=== PATIENT | female | born 1945 | race Caucasian/White ===

== ENCOUNTER 2016-08-21 11:21 | Inpatient (IN) | payer MEDICAID, OTHER ==
[~2016-08-21] VITALS: Ht 147.3 cm; Wt 49.8 kg
[~2016-08-21 11:21] MED LIST: ACET325T33 PO; ASPI325T4 PO; CLON-379 PO; ETOMIDATE 20 MG INJ ONE; METO-429 PO; ROCURONIUM 50 MG INJ ONE; SVL400T PO; TRAM-40 PO
[2016-08-21] MEDS ORDERED: CA GLUCONATE (GM) 10% 10ML INJ IV STA (11:24)
[2016-08-21] MEDS ORDERED: CEFEPIME 2GM/50 ML (PMX) 50 ML IVPB STA (11:24)
[2016-08-21] MEDS ORDERED: VANCOMYCIN 1 GM (PMX) 250 ML IVPB ONE (11:30)
[2016-08-21] MEDS ORDERED: NA BICARBONATE 8.4% 50 ML SYG IV ONE (11:30)
[2016-08-21] MEDS ORDERED: ETOMIDATE 20 MG INJ IV STA (11:41)
[2016-08-21] MEDS ORDERED: PROPOFOL 100 ML IV STA (11:41)
[2016-08-21] MEDS ORDERED: ROCURONIUM 50 MG INJ IV STA (11:41)
[2016-08-21 11:45] VITALS: RESP 12; RESP 16
[2016-08-21] MEDS ORDERED: HYDROmorphONE 1 MG/ML SYG IV ONE (12:00)
[2016-08-21 12:11] LABS: BASOPHILS % 0.7 % (0.0-2.0); EOSINOPHILS % 0.5 % (0.0-7.0); HEMATOCRIT 36.1 % (37.0-47.0); HEMOGLOBIN 12.3 g/dl (12.0-16.0); LYMPHOCYTES # 2.3 10^3/ul (0.8-2.9); LYMPHOCYTES % 39.6 % (15.0-51.0); MEAN CORPUSCULAR HEMOGLOBIN 30.7 pg (29.0-33.0); MEAN CORPUSCULAR HGB CONC 34.1 g/dl (32.0-37.0); MEAN PLATELET VOLUME 11.6 fl (7.4-10.4); MONOCYTE # 0.4 10^3/ul (0.3-0.9); MONOCYTES % 6.1 % (0.0-11.0); NEUTROPHILS % 52.9 % (39.0-77.0); PLATELET COUNT 222 10^3/UL (140-415); RED BLOOD COUNT 4.01 10^6/ul (4.20-5.40); RED CELL DISTRIBUTION WIDTH 14.4 % (11.5-14.5); WHITE BLOOD COUNT 5.7 10^3/ul (4.8-10.8)
[2016-08-21 12:17] LABS: ADD UMIC YES; URINE BILIRUBIN (Dip) NEGATIVE (NEGATIVE); URINE BLOOD (Dip) 3+ (NEGATIVE); URINE COLOR LT. YELLOW (YELLOW); URINE GLUCOSE (Dip) NEGATIVE (NEGATIVE); URINE KETONES (Dip) NEGATIVE (NEGATIVE); URINE LEUKOCYTE ESTERASE (Dip) 3+ (NEGATIVE); URINE NITRITE (Dip) NEGATIVE (NEGATIVE); URINE TOTAL PROTEIN (Dip) 2+ (NEGATIVE); URINE UROBILINOGEN (Dip) 0.2 E.U./dL (0.1-1.0)
[2016-08-21 12:17] LABS: ALBUMIN 2.7 g/dl (3.3-4.9)
[2016-08-21 12:20] LABS: ALBUMIN/GLOBULIN RATIO 0.84; BILIRUBIN,INDIRECT 0.2 mg/dl (0-1.1); BILIRUBIN,TOTAL 0.2 mg/dl (0.2-1.3); CREATININE 2.57 mg/dl (0.44-1.00); TOTAL PROTEIN 5.9 g/dl (6.1-8.1)
[2016-08-21 12:21] LABS: CALCIUM 9.7 mg/dl (8.4-10.2)
[2016-08-21 12:38] LABS: BACTERIA,URINE MANY; SQUAMOUS EPITHELIAL CELL,UR FEW
--- NOTE | 2016-08-21 12:47 | RADRPT ---
PROCEDURE: XR Chest. CLINICAL INDICATION: Post intubation TECHNIQUE: Chest AP portable COMPARISON: 05/20/2016 FINDINGS: Endotracheal tube with the tip at the orifice of the right mainstem bronchus (pulled back 3 cm). The mediastinal structures are unremarkable. There is calcification of the thoracic aorta (consiste nt with atherosclerosis). The heart is normal in size and configuration. The pulmonary vascularity is normal. The lung singletary are unremarkable. No consolidation is identified. The pleural spaces are unremarkable. There are senescent changes of the axial skeleton. IMPRESSION: Endotracheal tube with tip at the orifice of the right mainstem bronchus (pullback 3 cm) Calcification of the thoracic aorta (consistent with atherosclerosis). No evidence for active cardiopulmonary disease. Case was discussed with Johnny Gipson RPTAT: HGDB .Manuel Lorenz MD, Date Time Electronically viewed and signed by .Manuel Lorenz MD, on 08/21/2016 12:47 .B/
[2016-08-21] MEDS ORDERED: LABETALOL HCL 20MG INJ IV ONE (13:00)
[2016-08-21 13:02] LABS: INR 1.29; PROTIME 16.2 Sec (12.2-14.2); PT RATIO 1.3
[2016-08-21] MEDS ORDERED: LORA1TAB PO (13:03)
[2016-08-21] MEDS ORDERED: HAL1 PO (13:04)
[2016-08-21] MEDS ORDERED: SODIUM CHLORIDE 0.9% 1L BAG IV* STA (13:23)
[2016-08-21 13:34] LABS: Allen Test ACCEPTAB; Arterial Base Excess 9.8 mmol/L (-3.0-3); Arterial COHb 0.3 % (0.0-3.0); Arterial HCO3 30.7 mmol/L (22.0-26.0); Arterial MetHb 0.2 % (0.0-1.5); Arterial Total Hemglobin 13.5 g/dl (12.0-18.0); MODE VENT - AC
[2016-08-21 13:44] LABS: TROPONIN-I 0.051 ng/ml (0.00-0.12)
[2016-08-21] MEDS ORDERED: niCARdipine-D5W 0.1MG/ML DRIP 200 ML IV SCH (14:00)
--- NOTE | 2016-08-21 14:19 | RADRPT ---
PROCEDURE: CT Brain without contrast. CLINICAL INDICATION: Neurologic deficit TECHNIQUE: A CT of the brain was performed on multidetector high-resolution CT scanner utilizing a xial sections from the skull base through the vertex without contrast. One or more of the following dose reduction techniques were used: Automated exposure control, Adjustment of the mA and/or kV acc ording to patient size, and/or use of iterative reconstruction technique. DOSE: CTDI = 45 mGy and the DLP = 720 mGy-cm. COMPARISON: Head CT 11/16/2015 FINDINGS: No acute intracranial hemorrhage, significant mass effect or midline shift. Patchy hypoattenuation o f the cerebral white matter is most consistent with moderate-severe chronic microvascular ischemic c hanges.Atherosclerotic calcifications of the cavernous segments of the internal carotid arteries are seen. 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 The ventricles are stable size. Opacified nasal cavity. Partially imaged endotracheal tu be. IMPRESSION: No acute intracranial hemorrhage or significant mass effect. Moderate-severe chronic microvascular disease. 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 RPTAT: AA .Mehdi Dang MD, MD Date Time Electronically viewed and signed by .Mehdi Dang MD, MD on 08/21/2016 14:19 .T/
--- NOTE | 2016-08-21 14:58 | ERA ---
ER Documentation Chief Complaint Date/Time DATE: 08/21/16 TIME: 14:54 Chief Complaint ALOC PRIOR TO DIALYSIS HPI Patient is a 71-year-old female on dialysis who presents with altered mental status. The patient was brought in by ambulance. She went to dialysis and then was altered and therefore they did not perform dialysis. She was bradycardic and hypotensive per paramedics. I cannot obtain a history otherwise. ROS All systems reviewed and are negative except as per history of present illness. Medications Home Meds Active Scripts Metoprolol Tartrate* (Lopressor*) 50 Mg Tab, 50 MG PO BID for 30 Days, TAB Prov:CLAUDIARBERONICA 05/07/16 Sevelamer HCl (Renagel) 400 Mg Tab, 400 MG PO WITH MEALS for 30 Days, TAB Prov:REGAFUARBERONICA 05/07/16 Clonidine Hcl* (Clonidine Hcl*) 0.1 Mg Tab, 0.1 MG PO Q4H Y for SBP>160 for 30 Days, TAB Prov:HERBERT SHELL [employer] 04/22/16 Aspirin (Aspirin Lite-Coat) 325 Mg Tablet, 325 MG PO BID for 30 Days, TAB Last Dose 05/24/16 Prov:HERBERT SHELL [employer] 04/22/16 Acetaminophen* (Tylenol*) 325 Mg Tablet, 650 MG PO Q6H Y for PAIN LEVEL 1-3 OR FEVER for 30 Days, TAB Prov:HERBERT SHELL [employer] 04/22/16 Reported Medications Haloperidol* (Haldol*) 1 Mg Tab, 1 MG PO TID, TAB 08/21/16 Lorazepam* (Lorazepam*) 1 Mg Tablet, 1 MG PO DAILY Y for AGITATION/ANXIETY, #30 TAB 08/21/16 Tramadol Hcl* (Ultram*) 50 Mg Tablet, 50 MG PO Q8 Y for PAIN, TAB 11/15/15 Allergies Allergies: Coded Allergies: No Known Allergy (Unverified , 08/21/16) PMhx/Soc History of Surgery: Yes (HDL, ESRD W/ HD, RT ARM AV FISTULA, DEMENTIA, HTN, CAD.) Anesthesia Reaction: No Hx Neurological Disorder: Yes (DEMENTIA) Hx Respiratory Disorders: No Hx Cardiac Disorders: Yes (HTN,CAD,HYPERLIPIDEMIA;) Hx Psychiatric Problems: Yes (DEMENTIA;) Hx Miscellaneous Medical Probl: Yes (HDL, ESRD W/ HD, RT ARM AV FISTULA, DEMENTIA, HTN, CAD.) Hx Alcohol Use: No Hx Substance Use: No Hx Tobacco Use: No Smoking Status: Unknown if ever smoked FmHx Unable to obtain Physical Exam Vitals Vital Signs Date Time Temp Pulse Resp B/P Pulse Ox O2 Delivery O2 Flow Rate FiO2 08/21/16 14:07 59 206/107 08/21/16 13:15 75 16 100 100 08/21/16 13:01 97.9 66 227/94 08/21/16 12:00 60 16 100 100 08/21/16 11:23 61 16 130/80 99 Physical Exam Const: Altered and not responding to questions Head: Atraumatic Eyes: Normal Conjunctiva ENT: Normal External Ears, Nose and Mouth. Neck: Full range of motion..~ No meningismus. Resp: Clear to auscultation bilaterally Cardio: Regular rate and rhythm, no murmurs Abd: Soft, non tender, non distended. Normal bowel sounds Skin: Pale Back: No midline or flank tenderness Ext: No cyanosis, or edema Neur: The patient is nonresponsive and not responding to commands, the patient does withdrawal to pain in all 4 extremities Result Diagram: 08/21/16 1145 08/21/16 1145 Results 24 hrs Laboratory Tests Test 08/21/16 11:39 08/21/16 11:41 08/21/16 11:45 08/21/16 13:50 Urine Bacteria MANY Urine Bilirubin NEGATIVE Urine Clarity CLEAR Urine Color LT. YELLOW Urine Glucose NEGATIVE% Urine Hemoglobin 3+ Urine Ketones NEGATIVE Urine Leukocyte Esterase 3+ Urine Microscopic RBC 5-10/HPF Urine Microscopic WBC 25-50/HPF Urine Nitrite NEGATIVE Urine Specific [place] 1.010 Urine Squamous Epithelial Cells FEW Urine Total Protein 2+ Urine Urobilinogen 0.2 E.U./dL Urine Yeast FEW Urine pH 7.0 Arterial Blood HCO3 30.7mmol/L Arterial Blood Base Excess 9.8mmol/L Arterial Blood Oxygen Saturation 99.5mmHG Kristopher Test ACCEPTAB Arterial Blood Gas Puncture Site LB Arterial Blood Carboxyhemoglobin 0.3% Arterial Blood Date Drawn 08/21/2016 1:26:43 PM Arterial Blood Methemoglobin 0.2% Arterial Blood pCO2 (Temp correct) 29.9mmhg Arterial Blood pH (Temp corrected) 7.629 Arterial Blood pO2 (Temp corrected) 590.1mmHG Blood Gas A-a O2 Differential 93.0mmHg Blood Gas Actual Respiration Rate 16 Blood Gas Critical Value Read Back YENI Drummond Blood Gas Low PEEP Setting 5.0cmH2O Blood Gas Modality VENT - AC Blood Gas Notified Time 08/21/2016 1:33:53 PM Blood Gas Notified Whom MDA Blood Gas Respiration Rate 16.0 Blood Gas Specimen Source Blood arterial Blood Gas Temperature 37.0C Blood Gas Tidal Volume 450.0mL FiO2 100.0% Oxyhemoglobin Percent 99.0% Total Hemoglobin 13.5g/dl Activated Partial Thromboplast Time 156.0Sec Alanine Aminotransferase (ALT/SGPT) 23IU/L Albumin 2.7g/dl Albumin/Globulin Ratio 0.84 Alkaline Phosphatase 131IU/L Anion Gap 14 Aspartate Amino Transf (AST/SGOT) 25IU/L Basophils # 0.010^3/ul Basophils % 0.7% Blood Urea Nitrogen 25mg/dl Calcium Level 9.7mg/dl Carbon Dioxide Level 35mmol/L Chloride Level 96mmol/L Creatinine 2.57mg/dl Direct Bilirubin 0.00mg/dl Eosinophils # 0.010^3/ul Eosinophils % 0.5% Globulin 3.20g/dl Glucose Level 131mg/dl Hematocrit 36.1% Hemoglobin 12.3g/dl INR International Normalized Ratio 1.29 Indirect Bilirubin 0.2mg/dl Lactic Acid Level 1.4mmol/L 2.4mmol/L Lymphocytes # 2.310^3/ul Lymphocytes % 39.6% Mean Corpuscular Hemoglobin 30.7pg Mean Corpuscular Hemoglobin Concent 34.1g/dl Mean Corpuscular Volume 90.0fl Mean Platelet Volume 11.6fl Monocytes # 0.410^3/ul Monocytes % 6.1% Neutrophils # 3.010^3/ul Neutrophils % 52.9% Nucleated Red Blood Cells # 0.010^3/ul Nucleated Red Blood Cells % 0.0/100WBC Platelet Count 97363^3/UL Potassium Level 3.0mmol/L Prothrombin Time 16.2Sec Prothrombin Time Ratio 1.3 Red Blood Count 4.0110^6/ul Red Cell Distribution Width 14.4% Sodium Level 142mmol/L Total Bilirubin 0.2mg/dl Total Protein 5.9g/dl Troponin I 0.051ng/ml White Blood Count 5.710^3/ul Current Medications Medications (Trade) Dose Ordered Sig/Simone Route PRN Reason Start Time Stop Time Status Last Admin Dose Admin Cefepime HCl 50 ml @ 100 mls/hr ONCE STAT IVPB 08/21/16 11:24 08/21/16 11:53 DC 08/21/16 12:40 Vancomycin HCl (Vancocin) 250 ml @ 125 mls/hr ONCE ONCE IVPB 08/21/16 11:30 08/21/16 13:29 DC 08/21/16 14:26 Sodium Bicarbonate (Na Bicarb 8.4% Syg) 50 ml ONCE ONCE IV 08/21/16 11:30 08/21/16 11:31 DC 08/21/16 11:34 Calcium Gluconate (Ca Gluc) 1 gm ONCE STAT IV 08/21/16 11:24 08/21/16 11:26 DC 08/21/16 11:34 Rocuronium [place] (Zemuron) 70 mg ONCE STAT IV 08/21/16 11:41 08/21/16 11:43 DC Etomidate (Amidate) 20 mg ONCE STAT IV 08/21/16 11:41 08/21/16 11:43 DC Hydromorphone HCl 1 mg 1 mg ONCE ONCE IV 08/21/16 12:00 08/21/16 12:01 DC Propofol (Diprivan) 100 ml @ 0 mls/hr ONCE STAT IV 08/21/16 11:41 08/21/16 11:43 DC 08/21/16 12:17 Labetalol HCl (Labetalol) 20 mg ONCE ONCE IV 08/21/16 13:00 08/21/16 13:01 DC 08/21/16 13:08 Sodium Chloride 1830 ml 1,830 ml BOLUS OVER 2 HOURS STAT IV* 08/21/16 13:23 08/21/16 13:24 DC 08/21/16 14:24 Nicardipine HCl (Cardene Iv) 200 ml @ 50 mls/hr TITRATE IV 08/21/16 14:00 08/21/16 14:24 Procedures/MDM EKG read by me: Rate/Rhythm: Right bundle branch block a rate of 62 Intervals: Normal Impression: Right bundle branch block without evidence of ischemia PROCEDURE: CT Brain without contrast. CLINICAL INDICATION: Neurologic deficit TECHNIQUE: A CT of the brain was performed on multidetector high-resolution CT scanner utilizing axial sections from the skull base through the vertex without contrast. One or more of the following dose reduction techniques were used: Automated exposure control, Adjustment of the mA and/or kV according to patient size, and/or use of iterative reconstruction technique. DOSE: CTDI = 45 mGy and the DLP = 720 mGy-cm. COMPARISON: Head CT 11/16/2015 FINDINGS: No acute intracranial hemorrhage, significant mass effect or midline shift. Patchy hypoattenuation of the cerebral white matter is most consistent with moderate-severe chronic microvascular ischemic changes.Atherosclerotic calcifications of the cavernous segments of the internal carotid arteries are seen. 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 The ventricles are stable size. Opacified nasal cavity. Partially imaged endotracheal tube. IMPRESSION: No acute intracranial hemorrhage or significant mass effect. Moderate-severe chronic microvascular disease. 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 RPTAT: AA .Mehdi Dagn MD, MD Date Time Electronically viewed and signed by .Mehdi Dang MD, MD on 08/21/2016 14:19 Chest x-ray shows no pneumonia per radiology. Admit MDM: Patient's infectious symptoms have not stabilized and the patient is at risk of rapid decompensation. The patient will be admitted for careful hydration, antibiotic therapy, and infectious source control. Severe Sepsis criteria: Infectious source: Cystitis End organ damage indicated by: Respiratory failure Sepsis Management: Time of recognition of sepsis: 11:39 Within 3 hours of recognition: Blood cultures x 2 before broad-spectrum antibiotics: [Yes] 30 ml/kg NS bolus [Completed] Initial lactate 1.4 Repeat lactate 2.4 Time of recognition of septic shock: [No septic shock] Septic Shock Assessment: Any lactic acid > 4.0 [No] Persistent hypotension (SBP < 90 or 40 mmHg drop, MAP < 65) despite 30 mL/kg IV fluid bolus [No] Volume Re-assessment for Septic Shock (post 30 ml/kg bolus): No septic shock at this time Persistent Hypotension Treatment: Comfort care [No] Central line right femoral line Vasopressor started [Not required] I considered further perfusion assessment with CVP measurement, SCVO2, bedside ultrasound volume assessment, passive leg raise, trial of further fluid bolus. And proceeded with [30 ml/kg fluid bolus of NSS, broad spectrum antibiotics, and admission.] The patient required intubation for airway protection given a low GCS upon arrival. The patient also had a right femoral central line placed for IV access given difficult IV access. Accepting Care Team Current data and ongoing care discussed. Admitting Physician: Dr. Lu as the patient has [facility] Weight Shifter(s): [None] Outstanding Data: [Culture results] Critical Care: Critical care time [35] minutes excluding all billable procedures Emergent fluid management while maintaining close respiratory support. Provision of immediate and broad-spectrum antibiotic therapy. Simultaneous assessment for possible sources in order to direct targeted therapy. Consideration for invasive and chemical support to prevent cardiopulmonary collapse. Central Line Placement by me: Patient consented, sterilely draped, full prep, gown, glove, mask, time out performed. Anesthesia: 1% lidocaine locally Location: Right femoral Device: Multiple lumen Technique: Seldinger technique. Secured with suture. Results: Venous return from all ports with easy saline flush. No complications. Guide wire retrieved and disposed of. ED Ultrasound: Central line placed by me using concurrent ultrasound guidance. Real time image archived in the medical record confirms vascular anatomy. Endotracheal Intubation by me: Pre assessment performed. Pre-oxygenation performed with 100% oxygen RSI: Performed w/o complication or hypoxic events. Medications as ordered. Blade: MAC 4 Glidescope ET Tube: 7.5 cm Depth: 22 cm at the lip Intubation confirmed by colorimetric CO2, equal breath sounds, quiet over the stomach. Departure Diagnosis: Primary Impression: Respiratory failure Qualified Code: J96.00 - Acute respiratory failure, unspecified whether with hypoxia or hypercapnia Additional Impressions: Hypertensive urgency Altered level of consciousness Severe sepsis Condition: Critical ROBY JAIME MD Aug 21, 2016 14:58
[2016-08-21] MEDS ORDERED: ACETAMINOPHEN 650 MG SUPP PR PRN (15:00)
[2016-08-21] MEDS ORDERED: ACETAMINOPHEN 650MG/20.3ML CUP PO PRN (15:00)
[2016-08-21] MEDS ORDERED: ONDANSETRON 4 MG INJ IV PRN (15:00)
[2016-08-21] MEDS ORDERED: PROPOFOL 100 ML IV SCH (15:30)
--- NOTE | 2016-08-21 16:08 | CONS ---
DATE OF ADMISSION: 08/21/2016 DATE OF CONSULTATION: 08/21/2016 REASON FOR CONSULTATION: End-stage renal disease. PHYSICIAN REQUESTING CONSULT: Dr. Lu. HISTORY OF PRESENT ILLNESS: This is a 72-year-old female with a past medical history of end-stage r enal disease on dialysis Thursday, Thursday, Thursday; history of hypertension, dyslipidemia, coronary artery disease and dementia who presents to [facility] after being found altered f rom her dialysis center. The patient went to dialysis today; however, was not performed as patient was noted to be altered. She was bradycardic and hypotensive. The patient was brought to the [facility] Emergency Room. Upon arrival, she was noted to have a [place] Coma Scale of 3. The patient was bradycardic at 50. She was subsequently intubated. The patient was also noted to be hy pertensive with systolic pressures of 200. She was placed on nicardipine drip. The patient was als o started on empiric antibiotics for possibility of sepsis. A chest x-ray was obtained which showed no acute findings. CT scan of the brain showed no acute findings. Urinalysis did show evidence of possible pyuria and possible UTI. Since intubation, the patient has been critical but stable. The re have been no reports of hemoptysis, hematemesis or hematochezia. PAST MEDICAL HISTORY: History of end-stage renal disease, diabetes, hypertension, dementia. PAST SURGICAL HISTORY: Status post AV fistula.. ALLERGIES: NO KNOWN DRUG ALLERGIES. FAMILY HISTORY: No family history of cancers, heart disease. SOCIAL HISTORY: Does not drink, smoke or do drugs. MEDICATIONS: Patient medications have been reviewed. REVIEW OF SYSTEMS: Unable to do adequate review of systems as patient is obtunded. Pertinent posit david obtained by reviewing medical records, speaking to hospital staff as stated in HPI, otherwise n egative. PHYSICAL EXAMINATION: VITAL SIGNS: Blood pressure is 119/70, respirations 16, pulse 71, temperature 97.9. HEENT: Head is normocephalic. Pupils are reactive to light. NECK: Supple. HEART: Regular rate. LUNGS: Show diminished breath sounds at base. ABDOMEN: Soft, nontender to palpation. No rebound or guarding. EXTREMITIES: Negative for clubbing, cyanosis. No edema. DERMATOLOGIC: No rashes. MUSCULOSKELETAL: No joint effusions. NEUROLOGIC: No focal deficits, although exam is limited as patient is sedated and obtunded. LABORATORY DATA: Shows white count 5.7, hemoglobin 12.6, hematocrit 36.1, platelet count 222. [place] um 142, potassium 3.0, chloride 96, bicarbonate 35, BUN 25, creatinine 2.57. Lactic acid is 2.5. T he patient's ABG shows a pH 7.629 and pCO2 of 29. IMAGING STUDIES: As stated in HPI. ASSESSMENT AND PLAN: This is a 71-year-old female who presents with: 1. End-stage renal disease. The patient is on dialysis Thursday, Thursday, Thursday. Last hemodialys is was Thursday. Plan is for hemodialysis today. We will dialyze for 3 hours on 4K bath, calcium 2.5 . We will ultrafiltrate if the patient hemodynamically tolerate it. We will monitor closely. 2. Hypokalemia. Etiology is unclear, may be secondary to recent bicarbonate therapy. We will cont inue to monitor. Will dialyze on a 4 potassium bath. 3. History of anemia. The patient's hemoglobin levels currently within normal limits. Continue to monitor. 4. Mineral bone disorder. We will monitor calcium and phosphorus levels. Defer for phosphate bind ers. 5. Acute encephalopathy, underlying etiology is unclear, possibly infectious. She is currently on broad spectrum antibiotics. Follow up cultures to monitor. 6. Acute hypoxemic respiratory failure. The patient is status post intubation. ABG and vent setti ngs have been reviewed. Will continue to observe. Follow up with pulmonary. 7. Hypertensive urgency. Etiology is in part due to increased intravascular volume. Plan for dial ysis today with ultrafiltration. 8. History of coronary artery disease. Continue medical management. 9. Respiratory alkalosis, patient's pH 7.62, pCO2 of 29. The patient's vent settings have been rev iewed. We will repeat an ABG and monitor. Thank you Dr. Lu for this consult. It will be a pleasure to follow patient with you throughout [facility] hospital course. Dictated By: LAN MATIAS DO NR/NTS Conf#: [id number] DID#: [id number]
--- NOTE | 2016-08-21 16:52 | HP ---
DATE OF ADMISSION: 08/21/2016 PRIMARY CARE PHYSICIAN: Dr. Lu. CHIEF COMPLAINT ON ADMISSION: Altered level of consciousness. HISTORY OF PRESENT ILLNESS: This is a 71-year-old female with history of end-stage renal disease on hemodialysis, hypertension, hyperlipidemia, coronary artery disease and dementia who presented to [facility] emergency department. Brought in from dialysis with altered level of consciousness. By the time I saw the patient, she has been intubated. Therefore, I cannot get any information from her. I wa s able to gather old information from the ER physician, the ER nurse and the medical records from pr evious admission. Apparently, the patient today was at dialysis and upon arrival, she was noted to be hypotensive, severely encephalopathic. Therefore, she was sent directly to the emergency departm ent. In the emergency department, her GCS was down to 3. She was not protecting her airway; theref ore, she was intubated emergently. Apparently, she was hypotensive at the dialysis center, but afte r intubation here at [facility], the patient was found to be severely hypertensive with systolic blood pressure up to 200, requiring for her to start Cardene drip after her hypertens ion did not respond to labetalol IV. The CAT scan of the brain was done. There are no signs of ble eding. The patient is starting to regain some sort of consciousness. She was paralyzed for the int ubation, but on my exam, her pupils are reactive; however, she is not moving any other part of her b [place] yet. She is on propofol for sedation and on the mechanical ventilation. She also has Cardene d rip on the lowest rate possible with systolic blood pressure now in the 150s. Unfortunately, I did not have any information beside the events at the dialysis center in the emergency department. Rabia e is no family at the bedside. I have attempted to call the next of kin listed, but no answers. Darwin ortiz will be admitted to the intensive care unit for rule out acute CVA, rule out sepsis as she is found to have a positive urinalysis. She does have a history of coronary artery disease. Therefore , she also will be worked up for possible cardiac event. ALLERGIES: NO KNOWN ALLERGIES. PAST MEDICAL HISTORY: Based on records: 1. End-stage renal disease on hemodialysis. 2. Hypertension. 3. Dyslipidemia. 4. Anemia of chronic disease. 5. Coronary artery disease. 6. Dementia. PAST SURGICAL HISTORY: The patient had ORIF for left hip intertrochanteric fracture back in 2015. Status post right arm AV fistula placement remotely. SOCIAL HISTORY: Unable to obtain from patient but based on records, the patient lives at a [facility] and there is no recent history of tobacco, alcohol or illicit drug use. REVIEW OF SYSTEMS: Unable to obtain. OUTPATIENT MEDICATIONS: Unable verify but based on what is reported, the patient is on: 1. Clonidine 0.1 mg p.o. q.4h. p.r.n. systolic blood pressure above 160. 2. Metoprolol 50 mg p.o. b.i.d. 3. Tylenol 650 mg p.o. q.6h. p.r.n. pain. 4. Haloperidol 1 tab p.o. t.i.d. 5. Lorazepam 1 mg p.o. daily p.r.n. anxiety. 6. Tramadol 50 mg p.o. q.8h. p.r.n. pain. 7. Renagel 400 mg p.o. q.a.c. and at bedtime. 8. Also listed aspirin 325 p.o. b.i.d., which is unlikely at this time as the patient finished it i n May 2016. PHYSICAL EXAMINATION: VITAL SIGNS: Temperature 97.9. At the time of my exam, heart rate is 62, blood pressure 157/75, re spiratory rate of 13. Patient is satting 100%, FIO2 of 40%. She is on the vent AC, PEEP of 5, tida l volume of 450, respiratory rate 16, FIO2 of 40%. GENERAL: She is intubated on propofol for sedation, but seems to open her eyes to loud voices. She also had to be paralyzed for the intubation. HEENT: Pupils are equally round and reactive to light. Extraocular muscles are very limited exam c urrently. No thyromegaly noted. NECK: No JVD. Mucous membrane moist. ET tube in place. HEART: Regular rate and rhythm. LUNGS: Clear to auscultation bilaterally. ABDOMEN: Soft, nontender, nondistended. Bowel sounds are present. EXTREMITIES: No edema, clubbing or cyanosis. NEUROLOGIC: Again, the patient may still be under the effect of the paralytics at the time of intub ation, but she is opening her eyes to loud voices. Barone catheter is in place with minimal amount o f urine. The patient is on dialysis. LABORATORY DATA: White blood cell count is 5.7, hemoglobin 12.3, hematocrit 36.1, platelet count of 222. Chemistry with a sodium of 142, potassium 3.0, chloride 96, bicarbonate 35, BUN 25, creatinin e 2.57, glucose of 131. Lactic acid first one was at 1.4, second one 2.4. LFTs unremarkable except for alkaline phosphatase of 131 and albumin of 2.7. Urinalysis with 3+ leukocyte esterase, many ba cteria. EKG showed a right bundle branch block and patient in sinus rhythm with heart rate in the 6 0s. RADIOLOGICAL DATA: 1. Chest x-ray post-intubation shows no evidence of active cardiopulmonary disease. ET tube in the right main stem bronchus needs to be pulled out 3 cm. 2. 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 3. MRI of the brain is pending. ASSESSMENT AND PLAN: This is a 71-year-old female with: 1. Acute and severe encephalopathy with [place] Coma Score of 3. Required intubation for airway pr otection. My concern is the patient had a neurological event, possibly an ischemic cerebrovascular accident . CAT scan is negative for acute hemorrhagic CVA. She is currently under sedation and on the vent. MRI is pending. There is a question of sepsis as the patient was at first hypotensive on dialysis at the time of loss of consciousness. Her urinalysis is positive; however, the rest of he r labs are fairly stable. She has been given a dose of vancomycin and cefepime. We will continue t he cefepime for now based on the urinalysis. Monitor further. 2. Severe hypertension on admission. Now, she seems to be trending back to normotensive. She may have labile blood pressure. She is currently on Cardene drip, but that may need to be discontinued later on. She needs to monitor vital signs and follow up on MRI of the brain. 3. End-stage renal disease. The patient missed dialysis today. I have contacted Dr. Saldana to re sume her scheduled dialysis as tolerated. 4. Hypokalemia. The patient did receive bicarbonate upon arrival and we will recheck her basic met abolic panel this afternoon and correct her potassium as needed. 5. Anemia of chronic disease, stable hemoglobin on admission. 6. Urinary tract infection with positive urinalysis and possibly sepsis. Continue to trend lactic acid levels. Continue cefepime. Monitor hemodynamically. The patient is already on the vent for a cute respiratory failure related to severe encephalopathy. 7. Prophylaxis: Sequential compression devices to lower extremity for DVT prophylaxis. Of note, t he patient is noted to have elevated PTT for unclear reasons and Pepcid for GI prophylaxis. DISPOSITION: Patient will be admitted to intensive care unit, pulmonary consult with Dr. Montelongo. Nephrology consult with Dr. Saldana and MRI pending. Dictated By: JACQUES PEREZ/SANRDA Conf#: [id number] DID#: [id number]
--- NOTE | 2016-08-21 17:05 | CONS ---
Date/Time of Note Date/Time of Note DATE: 08/21/16 TIME: 16:58 Assessment/Plan Assessment/Plan Additional Assessment/Plan Assessment and recommendations; next 1. Patient admitted with hypertensive encephalopathy then developed respiratory failure, intubated for airway protection. 2. Current blood pressure readings are much better. Patient was started on nicardipine drip however the patient became hypotensive and drip was then discontinued. 3. Currently no evidence of any infective process. 4. End-stage renal disease on hemodialysis. 5. Vision is getting mildly alkalotic. Next Current treatment for now, ventilator settings have been adjusted; tidal volume is to be decreased to 450 mL. Continue current antibiotics for now. Give patient a sedation vacation in about 14 hours. Weaning from mechanical ventilation will depend upon adequate recovery of mental status. We will follow the patient in ICU. Consultation Date/Type/Reason Admit Date/Time Date of Consultation: Aug 21, 2016 Type of Consultation: Pulmonary/critical care Reason for Consultation 31-year-old female admitted to ER presented with altered level of consciousness sent over from dialysis center then developed respiratory failure intubated by ER physician for airway protection. History presenting illness; Ms. Madrid is a 71-year-old [place] lady who was about to undergo hemodialysis today however the patient was extremely hypertensive and then developed altered level of consciousness, because of instability patient was sent over to [facility] ER where she was intubated by the ER physician for airway protect. Next Medical history 1. End-stage renal disease on hemodialysis. 2. Hypertension. 3. Dementia . 4. History of AV fistula. 5. History of ORIF involving the left hip. 6. History of coronary artery disease. Medications; were reviewed. Allergies; R none Social history; no show any smoking, alcohol or drug abuse. Family history; currently not available. Occupational history; currently not available. Review of systems; not able to be obtained. General examination; elderly lady, orally intubated, currently sedated with propofol drip. Social History Smoking Status: Unknown if ever smoked Exam/Review of Systems Vital Signs Vitals Vital Signs Date Time Temp Pulse Resp B/P Pulse Ox O2 Delivery O2 Flow Rate FiO2 08/21/16 16:00 54 139/68 08/21/16 13:15 16 100 100 08/21/16 13:01 97.9 Exam HEENT examination; supple neck, bilateral cataracts are present, pupils are small bilaterally. Orally intubated. Supple neck. No lymphadenopathy. No JVD. No thyromegaly. Next Chest examination; clear to auscultation bilaterally. S1-S2 audible, regular rhythm. No murmurs. Abdomen examination; soft, no scars are present. Umbilicus is inverted. No organomegaly. Bowel sounds audible. Extremity examination; no peripheral edema. Pulses 1+ bilaterally. CENTRAL PROCESSING TECHNICIAN examination; patient is currently sedated. Chest x-ray and CT scan of head were reviewed. Chest x-ray is totally clear, however endotracheal tube is just at the level of altagracia and has since been pulled out. CT of the head is negative. Results Result Diagram: 08/21/16 1145 08/21/16 1145 Results 24 hrs Laboratory Tests Test 08/21/16 11:39 08/21/16 11:41 08/21/16 11:45 08/21/16 13:50 Urine Bacteria MANY Urine Bilirubin NEGATIVE Urine Clarity CLEAR Urine Color LT. YELLOW Urine Glucose NEGATIVE Urine Hemoglobin 3+ H Urine Ketones NEGATIVE Urine Leukocyte Esterase 3+ H Urine Microscopic RBC 5-10 Urine Microscopic WBC 25-50 Urine Nitrite NEGATIVE Urine Specific [place] 1.010 Urine Squamous Epithelial Cells FEW Urine Total Protein 2+ H Urine Urobilinogen 0.2 E.U./dL Urine Yeast FEW Urine pH 7.0 Arterial Blood HCO3 30.7 H Arterial Blood Base Excess 9.8 H Arterial Blood Oxygen Saturation 99.5 Kristopher Test ACCEPTAB Arterial Blood Gas Puncture Site LB Arterial Blood Carboxyhemoglobin 0.3 Arterial Blood Date Drawn 08/21/2016 1:26:43 PM Arterial Blood Methemoglobin 0.2 Arterial Blood pCO2 (Temp correct) 29.9 L Arterial Blood pH (Temp corrected) 7.629 *H Arterial Blood pO2 (Temp corrected) 590.1 H Blood Gas A-a O2 Differential 93.0 H Blood Gas Actual Respiration Rate 16 Blood Gas Critical Value Read Back YENI Drummond Blood Gas Low PEEP Setting 5.0 Blood Gas Modality VENT - AC Blood Gas Notified Time 08/21/2016 1:33:53 PM Blood Gas Notified Whom MDA Blood Gas Respiration Rate 16.0 Blood Gas Specimen Source Blood arterial Blood Gas Temperature 37.0 Blood Gas Tidal Volume 450.0 FiO2 100.0 Oxyhemoglobin Percent 99.0 Total Hemoglobin 13.5 Activated Partial Thromboplast Time 156.0 *H Alanine Aminotransferase (ALT/SGPT) 23 Albumin 2.7 L Albumin/Globulin Ratio 0.84 Alkaline Phosphatase 131 H Anion Gap 14 Aspartate Amino Transf (AST/SGOT) 25 Basophils # 0.0 Basophils % 0.7 Blood Urea Nitrogen 25 H Calcium Level 9.7 Carbon Dioxide Level 35 H Chloride Level 96 L Creatinine 2.57 H Direct Bilirubin 0.00 Eosinophils # 0.0 Eosinophils % 0.5 Globulin 3.20 Glucose Level 131 Hematocrit 36.1 L Hemoglobin 12.3 INR International Normalized Ratio 1.29 Indirect Bilirubin 0.2 Lactic Acid Level 1.4 2.4 H Lymphocytes # 2.3 Lymphocytes % 39.6 Mean Corpuscular Hemoglobin 30.7 Mean Corpuscular Hemoglobin Concent 34.1 Mean Corpuscular Volume 90.0 Mean Platelet Volume 11.6 #H Monocytes # 0.4 Monocytes % 6.1 Neutrophils # 3.0 Neutrophils % 52.9 Nucleated Red Blood Cells # 0.0 Nucleated Red Blood Cells % 0.0 Platelet Count 222 Potassium Level 3.0 L Prothrombin Time 16.2 H Prothrombin Time Ratio 1.3 Red Blood Count 4.01 L Red Cell Distribution Width 14.4 Sodium Level 142 Total Bilirubin 0.2 Total Protein 5.9 L Troponin I 0.051 White Blood Count 5.7 Test 08/21/16 15:30 Lactic Acid Level 2.5 H Medications Medications Current Medications Nicardipine HCl (Cardene Iv) 200 ml @ 50 mls/hr TITRATE IV Last administered on 08/21/16t 14:24; Admin Dose 50 MLS/HR; Start 08/21/16 at 14:00 Ondansetron HCl (Zofran Inj) 4 mg Q6H PRN IV NAUSEA AND/OR VOMITING; Start 08/21 at 15:00 Acetaminophen (Tylenol Liquid) 650 mg Q6H PRN PO PAIN LEVEL 1-3 OR FEVER; Start 08/21/16 at 15:00 Acetaminophen (Tylenol Supp) 650 mg Q4H PRN [place] PAIN LEVEL 1-3 OR FEVER; Start 08/21/16 at 15:00 Famotidine (Pepcid Iv) 20 mg Q12 IV ; Start 08/21/16 at 21:00 Metoprolol Tartrate 50 mg 50 mg BID PO ; Start 08/21/16 at 21:00 Cefepime HCl (Maxipime 1gm/50 ml (Pmx)) 50 ml @ 100 mls/hr Q24H IVPB ; Start at 11:00 GIOVANNI JOHNS Aug 21, 2016 17:04
[2016-08-21 17:17] LABS: CREATININE 2.54 mg/dl (0.44-1.00)
[2016-08-21 17:18] LABS: CALCIUM 7.5 mg/dl (8.4-10.2)
[2016-08-21 17:32] LABS: POTASSIUM 2.8 mmol/L (3.5-5.1)
[2016-08-21 17:44] VITALS: TEMP 96.9
[2016-08-21] MEDS: SEVELAMER 400 MG TAB PO SCH (18:00)
[2016-08-21 20:16] LABS: CK-MB 6.57 ng/ml (0.0-2.4)
[2016-08-21 20:20] LABS: TROPONIN-I 0.067 ng/ml (0.00-0.12)
[2016-08-21] MEDS ORDERED: POTASSIUM CHLORIDE 250 ML IVPB ONE (20:30)
[2016-08-21] MEDS: METOPROLOL 50 MG TAB PO SCH (21:00)
[2016-08-21] MEDS: FAMOTIDINE 20 MG INJ IV SCH (22:01)
[2016-08-21 23:10] VITALS: RESP 12; RESP 16
[2016-08-21 23:45] VITALS: BP 146/72; PULSE 51; RESP 12
[2016-08-22] VITALS (84 sets, daily range): BP systolic 64–197; BP diastolic 40–95; PULSE 51–86; RESP 11–26; Ht 147.3 cm; Wt 49.8 kg
[2016-08-22 02:17] LABS: CK-MB 7.3 ng/ml (0.0-2.4)
[2016-08-22 02:20] LABS: TROPONIN-I 0.068 ng/ml (0.00-0.12)
[2016-08-22] MEDS ORDERED: NACL 3% FOR INHALATION 15 ML NEBU NEB ONE (02:30)
--- NOTE | 2016-08-22 02:35 | RADRPT ---
PROCEDURE: XR Chest. CLINICAL INDICATION: Endotracheal tube repositioning TECHNIQUE: Portable single view of the chest COMPARISON: 08/21 FINDINGS: The endotracheal tube has been pulled back and is now in good position in the mid trachea. The hear t size remains top normal. The aorta is calcified. Increased interstitial markings of the lungs ar e again seen. Respiratory apparatus partially obscures visualization of the left lung base. IMPRESSION: Endotracheal tube now in good position. RPTAT: HLBE Simin Hunter Physician Date Time Electronically viewed and signed by Simin Hunter Physician on 08/22/2016 02:35 LE/
[2016-08-22] MEDS: ENALAPRILAT 1.25 MG INJ IV PRN ×3 (04:26→16:11)
[2016-08-22 05:08] LABS: ADD SCAN DIFF NO
[2016-08-22 05:20] LABS: INR 1.17; PT RATIO 1.2
[2016-08-22 05:21] LABS: PARTIAL THROMBOPLASTIN TIME 37.5 Sec (25.0-35.0)
[2016-08-22 05:29] LABS: BASOPHIL # 0.1 10^3/ul (0.0-0.1); BASOPHILS % 0.6 % (0.0-2.0); CHOL/HDL RATIO 2.3 RATIO; EOSINOPHILS % 0.3 % (0.0-7.0); HEMATOCRIT 32.7 % (37.0-47.0); LYMPHOCYTES # 1.1 10^3/ul (0.8-2.9); LYMPHOCYTES % 12.1 % (15.0-51.0); MAGNESIUM 2.1 mg/dl (1.7-2.5); MEAN CORPUSCULAR HEMOGLOBIN 31.3 pg (29.0-33.0); MEAN CORPUSCULAR HGB CONC 33.6 g/dl (32.0-37.0); MEAN CORPUSCULAR VOLUME 92.9 fl (82.0-101.0); MEAN PLATELET VOLUME 12.1 fl (7.4-10.4); MONOCYTE # 0.5 10^3/ul (0.3-0.9); MONOCYTES % 5.8 % (0.0-11.0); NEUTROPHILS % 80.9 % (39.0-77.0); PHOSPHORUS 1.6 mg/dl (2.5-4.9); PLATELET COUNT 191 10^3/UL (140-415); RED BLOOD COUNT 3.52 10^6/ul (4.20-5.40); RED CELL DISTRIBUTION WIDTH 15.1 % (11.5-14.5); WHITE BLOOD COUNT 8.7 10^3/ul (4.8-10.8)
[2016-08-22 05:31] LABS: ALBUMIN 2.4 g/dl (3.3-4.9)
[2016-08-22 05:34] LABS: ALBUMIN/GLOBULIN RATIO 0.77; BILIRUBIN,INDIRECT 0.2 mg/dl (0-1.1); BILIRUBIN,TOTAL 0.2 mg/dl (0.2-1.3); CREATININE 2.92 mg/dl (0.44-1.00); TOTAL PROTEIN 5.5 g/dl (6.1-8.1)
[2016-08-22 05:35] LABS: CALCIUM 8.3 mg/dl (8.4-10.2)
[2016-08-22] MEDS: SEVELAMER 400 MG TAB PO SCH ×3 (07:35→17:35)
--- NOTE | 2016-08-22 08:57 | PN ---
Date/Time of Note Date/Time of Note DATE: 08/22/16 TIME: 08:55 Assessment/Plan VTE Prophylaxis VTE Prophylaxis Intervention: SCD's Lines/Catheters IV Catheter Type (from Nrsg): Central Line Central line still needed: Yes (for IV access ) Urinary Cath still in place: Yes Reason Cath still needed: other (indicate) (on vent ) Assessment/Plan Assessment/Plan 71-year-old female with: 1. Acute and severe encephalopathy with [place] Coma Score of 3. Required intubation for airway protection. Still concern of a neurological event, possibly an ischemic cerebrovascular accident . CAT scan is negative for acute hemorrhagic CVA. MRI pending still ? sepsis as the patient was at first hypotensive on dialysis at the time of loss of consciousness. Continue Cefepime for rx for UTI for now, Urine cx pending 2. Acute respiratory failure related to severe encephalopathy on admission. On Vent, stable and Pulmonary following Should get MRI brain prior to attempt at extubation 3. Severe hypertension on admission. BP better and for now will allow BP to run relatively high with SBP 150-160's until MRI results. Continue Metoprolol for now BPs were labile yesterday Follow up on MRI of the brain results. 4. End-stage renal disease. On HD Appreciate Dr. Saldana's assistance 5. Hypokalemia. Resolved this AM Appreciate assistance from Dr Nash. 6. Anemia of chronic disease, stable H/H so far. 7. Urinary tract infection with positive urinalysis and possibly sepsis. Lactic acid wnl now and Urine cx pending Continue cefepime for now Prophylaxis: Sequential compression devices to lower extremity for DVT prophylaxis and Pepcid for GI prophylaxis. DISPOSITION: ICU care, MRI brain, Pulmonary consult with Dr. Muhammad, Nephrology consult with Dr. Saldana. Neurology consult if needed Subjective 24 Hr Interval Summary Free Text/Dictation Patient sedated and stable on vent HD planned for tomorrow MRI Brain still pending Exam/Review of Systems Vital Signs Vitals Vital Signs Date Time Temp Pulse Resp B/P Pulse Ox O2 Delivery O2 Flow Rate FiO2 08/22/16 08:50 67 16 100 30 08/22/16 08:45 186/72 Mechanical Ventilator 08/22/16 08:00 97.8 Intake and Output 08/21/16 08/21/16 08/22/16 15:00 23:00 07:00 Intake Total 527.12 ml Output Total 2700 ml Balance -2172.88 ml Exam Constitutional: other (sedated and intubated ) Respiratory: clear to auscultation, other (on vent ) Cardiovascular: nl pulses, regular rate and rhythm Gastrointestinal: non-tender, soft Musculoskeletal: nl extremities to inspection, other (no edema, clubbing or cyanosis ) Extremities: normal pulses Neurological: MASTER ELECTRICIAN II-XII intact, other (sedated and intubated ) Results Result Diagram: 08/22/1642908/22/16 043 Results 24 hrs Laboratory Tests Test 08/21/16 11:39 08/21/16 11:41 08/21/16 11:45 08/21/16 13:50 Urine Bacteria MANY Urine Bilirubin NEGATIVE Urine Clarity CLEAR Urine Color LT. YELLOW Urine Glucose NEGATIVE Urine Hemoglobin 3+ H Urine Ketones NEGATIVE Urine Leukocyte Esterase 3+ H Urine Microscopic RBC 5-10 Urine Microscopic WBC 25-50 Urine Nitrite NEGATIVE Urine Specific [place] 1.010 Urine Squamous Epithelial Cells FEW Urine Total Protein 2+ H Urine Urobilinogen 0.2 E.U./dL Urine Yeast FEW Urine pH 7.0 Arterial Blood HCO3 30.7 H Arterial Blood Base Excess 9.8 H Arterial Blood Oxygen Saturation 99.5 Kristopher Test ACCEPTAB Arterial Blood Gas Puncture Site LB Arterial Blood Carboxyhemoglobin 0.3 Arterial Blood Date Drawn 08/21/2016 1:26:43 PM Arterial Blood Methemoglobin 0.2 Arterial Blood pCO2 (Temp correct) 29.9 L Arterial Blood pH (Temp corrected) 7.629 *H Arterial Blood pO2 (Temp corrected) 590.1 H Blood Gas A-a O2 Differential 93.0 H Blood Gas Actual Respiration Rate 16 Blood Gas Critical Value Read Back YENI Drummond Blood Gas Low PEEP Setting 5.0 Blood Gas Modality VENT - AC Blood Gas Notified Time 08/21/2016 1:33:53 PM Blood Gas Notified Whom MDA Blood Gas Respiration Rate 16.0 Blood Gas Specimen Source Blood arterial Blood Gas Temperature 37.0 Blood Gas Tidal Volume 450.0 FiO2 100.0 Oxyhemoglobin Percent 99.0 Total Hemoglobin 13.5 Activated Partial Thromboplast Time 156.0 *H Alanine Aminotransferase (ALT/SGPT) 23 Albumin 2.7 L Albumin/Globulin Ratio 0.84 Alkaline Phosphatase 131 H Anion Gap 14 Aspartate Amino Transf (AST/SGOT) 25 Basophils # 0.0 Basophils % 0.7 Blood Urea Nitrogen 25 H Calcium Level 9.7 Carbon Dioxide Level 35 H Chloride Level 96 L Creatinine 2.57 H Direct Bilirubin 0.00 Eosinophils # 0.0 Eosinophils % 0.5 Globulin 3.20 Glucose Level 131 Hematocrit 36.1 L Hemoglobin 12.3 INR International Normalized Ratio 1.29 Indirect Bilirubin 0.2 Lactic Acid Level 1.4 2.4 H Lymphocytes # 2.3 Lymphocytes % 39.6 Mean Corpuscular Hemoglobin 30.7 Mean Corpuscular Hemoglobin Concent 34.1 Mean Corpuscular Volume 90.0 Mean Platelet Volume 11.6 #H Monocytes # 0.4 Monocytes % 6.1 Neutrophils # 3.0 Neutrophils % 52.9 Nucleated Red Blood Cells # 0.0 Nucleated Red Blood Cells % 0.0 Platelet Count 222 Potassium Level 3.0 L Prothrombin Time 16.2 H Prothrombin Time Ratio 1.3 Red Blood Count 4.01 L Red Cell Distribution Width 14.4 Sodium Level 142 Total Bilirubin 0.2 Total Protein 5.9 L Troponin I 0.051 White Blood Count 5.7 Test 08/21/16 15:30 08/21/16 15:50 08/21/16 18:00 08/22/16 00:43 Lactic Acid Level 2.5 H 2.0 Ammonia < 0 L Anion Gap 12 Blood Urea Nitrogen 24 H Calcium Level 7.5 L Carbon Dioxide Level 28 Chloride Level 104 Creatinine 2.54 H Free Thyroxine 1.94 Glucose Level 118 Potassium Level 2.8 *L 3.5 Sodium Level 141 Thyroid Stimulating Hormone (TSH) 5.860 H Creatine Kinase 307 H 326 H Creatine Kinase Index 2.1 2.2 Creatinine Kinase MB (Mass) 6.57 H 7.30 H Troponin I 0.067 0.068 Test 08/22/16 04:30 Activated Partial Thromboplast Time 37.5 H Alanine Aminotransferase (ALT/SGPT) 23 Albumin 2.4 L Albumin/Globulin Ratio 0.77 Alkaline Phosphatase 131 H Anion Gap 13 Aspartate Amino Transf (AST/SGOT) 34 Basophils # 0.1 Basophils % 0.6 Blood Urea Nitrogen 25 H Calcium Level 8.3 L Carbon Dioxide Level 29 Chloride Level 105 Cholesterol Level 119 Cholesterol/HDL Ratio 2.3 Creatinine 2.92 H Direct Bilirubin 0.00 Eosinophils # 0.0 Eosinophils % 0.3 Globulin 3.10 Glucose Level 91 HDL Cholesterol 51 Hematocrit 32.7 L Hemoglobin 11.0 L INR International Normalized Ratio 1.17 Indirect Bilirubin 0.2 LDL Cholesterol, Calculated 45 Lymphocytes # 1.1 Lymphocytes % 12.1 L Magnesium Level 2.1 Mean Corpuscular Hemoglobin 31.3 Mean Corpuscular Hemoglobin Concent 33.6 Mean Corpuscular Volume 92.9 Mean Platelet Volume 12.1 H Monocytes # 0.5 Monocytes % 5.8 Neutrophils # 7.0 Neutrophils % 80.9 H Nucleated Red Blood Cells # 0.0 Nucleated Red Blood Cells % 0.0 Phosphorus Level 1.6 L Platelet Count 191 Potassium Level 4.0 Prothrombin Time 15.0 H Prothrombin Time Ratio 1.2 Red Blood Count 3.52 L Red Cell Distribution Width 15.1 H Sodium Level 143 Total Bilirubin 0.2 Total Protein 5.5 L Triglycerides Level 114 White Blood Count 8.7 # Medications Medications Current Medications Nicardipine HCl (Cardene Iv) 200 ml @ 50 mls/hr TITRATE IV Last administered on 08/21/16 14:24; Admin Dose 50 MLS/HR; Start 08/21/16 at 14:00 Ondansetron HCl (Zofran Inj) 4 mg Q6H PRN IV NAUSEA AND/OR VOMITING; Start 08/21 at 15:00 Acetaminophen (Tylenol Liquid) 650 mg Q6H PRN PO PAIN LEVEL 1-3 OR FEVER; Start 08/21/16 at 15:00 Acetaminophen (Tylenol Supp) 650 mg Q4H PRN [place] PAIN LEVEL 1-3 OR FEVER; Start 08/21/16 at 15:00 Famotidine (Pepcid Iv) 20 mg Q12 IV Last administered on 08/21/16 22:01; Admin Dose 20 MG; Start 08/21/16 at 21:00 Metoprolol Tartrate 50 mg 50 mg BID PO ; Start 08/21/16 at 21:00 Cefepime HCl (Maxipime 1gm/50 ml (Pmx)) 50 ml @ 100 mls/hr Q24H IVPB ; Start at 11:00 Enalaprilat (Vasotec Iv) 1.25 mg Q6H PRN IV ELEVATED SYSTOLIC BP Last administered on 08/22/16 04:26; Admin Dose 1.25 MG; Start 08/22/16 at 02:30 JACQUES ACHARYAb 10, 2017 08:56 JACQUES ACHARYA Aug 22, 2016 08:56
[2016-08-22] MEDS: FAMOTIDINE 20 MG INJ IV SCH ×2 (09:00→10:32)
[2016-08-22] MEDS: METOPROLOL 50 MG TAB PO SCH ×3 (09:00→21:51)
--- NOTE | 2016-08-22 10:03 | CONS ---
Date/Time of Note Date/Time of Note DATE: 08/22/16 TIME: 09:57 Assessment/Plan Assessment/Plan Additional Assessment/Plan Current ventilator settings are AC of 12, tidal volume 450, PEEP of 5, 30% FiO2. Assessment recommendations; 1. Patient admitted with hypertensive encephalopathy, leading to respiratory failure. 2. History of severe hypertension. 3. End-stage renal disease, on hemodialysis. Stop sedation. The patient is off sedative effect should be evaluated for possible weaning from mechanical ventilation. Meanwhile continue current treatment. Patient was dialyzed this morning. Consultation Date/Type/Reason Admit Date/Time Aug 21, 2016 at 13:37 Initial Consult Date 08/21/16 Type of Consultation: Pulmonary/critical care 24 HR Interval Summary Free Text/Dictation Patient condition remains critical. Still ventilator dependent. Patient however has remained hemodynamically stable. Next General examination; elderly lady, or intubated. Currently in no distress. Exam/Review of Systems Vital Signs Vitals Vital Signs Date Time Temp Pulse Resp B/P Pulse Ox O2 Delivery O2 Flow Rate FiO2 08/22/16 08:50 67 16 100 30 08/22/16 08:45 186/72 Mechanical Ventilator 08/22/16 08:00 97.8 Intake and Output 08/21/16 08/21/16 08/22/16 15:00 23:00 07:00 Intake Total 543.070 ml Output Total 2700 ml Balance -2156.930 ml Exam HEENT examination; supple neck, no lymphadenopathy. No thyromegaly. No neck masses. Orally intubated. Both are midsize bilaterally reactive to light, bilateral cataracts are present. Chest examination; diminished but clear breath sounds bilaterally. S1-S2 audible, no murmurs. Regular rate and rhythm. Abdomen examination; soft, nontender no organomegaly. Bowel sounds audible. Extremity examination; no peripheral edema. There is an AV shunt in the right arm. 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 Results Result Diagram: 08/22/1642908/22/16 043 Results 24 hrs Laboratory Tests Test 08/21/16 11:39 08/21/16 11:41 08/21/16 11:45 08/21/16 13:50 Urine Bacteria MANY Urine Bilirubin NEGATIVE Urine Clarity CLEAR Urine Color LT. YELLOW Urine Glucose NEGATIVE Urine Hemoglobin 3+ H Urine Ketones NEGATIVE Urine Leukocyte Esterase 3+ H Urine Microscopic RBC 5-10 Urine Microscopic WBC 25-50 Urine Nitrite NEGATIVE Urine Specific Osteen 1.010 Urine Squamous Epithelial Cells FEW Urine Total Protein 2+ H Urine Urobilinogen 0.2 E.U./dL Urine Yeast FEW Urine pH 7.0 Arterial Blood HCO3 30.7 H Arterial Blood Base Excess 9.8 H Arterial Blood Oxygen Saturation 99.5 Kristopher Test ACCEPTAB Arterial Blood Gas Puncture Site LB Arterial Blood Carboxyhemoglobin 0.3 Arterial Blood Date Drawn 08/21/2016 1:26:43 PM Arterial Blood Methemoglobin 0.2 Arterial Blood pCO2 (Temp correct) 29.9 L Arterial Blood pH (Temp corrected) 7.629 *H Arterial Blood pO2 (Temp corrected) 590.1 H Blood Gas A-a O2 Differential 93.0 H Blood Gas Actual Respiration Rate 16 Blood Gas Critical Value Read Back YENI Drummond Blood Gas Low PEEP Setting 5.0 Blood Gas Modality VENT - AC Blood Gas Notified Time 08/21/2016 1:33:53 PM Blood Gas Notified Whom MDA Blood Gas Respiration Rate 16.0 Blood Gas Specimen Source Blood arterial Blood Gas Temperature 37.0 Blood Gas Tidal Volume 450.0 FiO2 100.0 Oxyhemoglobin Percent 99.0 Total Hemoglobin 13.5 Activated Partial Thromboplast Time 156.0 *H Alanine Aminotransferase (ALT/SGPT) 23 Albumin 2.7 L Albumin/Globulin Ratio 0.84 Alkaline Phosphatase 131 H Anion Gap 14 Aspartate Amino Transf (AST/SGOT) 25 Basophils # 0.0 Basophils % 0.7 Blood Urea Nitrogen 25 H Calcium Level 9.7 Carbon Dioxide Level 35 H Chloride Level 96 L Creatinine 2.57 H Direct Bilirubin 0.00 Eosinophils # 0.0 Eosinophils % 0.5 Globulin 3.20 Glucose Level 131 Hematocrit 36.1 L Hemoglobin 12.3 INR International Normalized Ratio 1.29 Indirect Bilirubin 0.2 Lactic Acid Level 1.4 2.4 H Lymphocytes # 2.3 Lymphocytes % 39.6 Mean Corpuscular Hemoglobin 30.7 Mean Corpuscular Hemoglobin Concent 34.1 Mean Corpuscular Volume 90.0 Mean Platelet Volume 11.6 #H Monocytes # 0.4 Monocytes % 6.1 Neutrophils # 3.0 Neutrophils % 52.9 Nucleated Red Blood Cells # 0.0 Nucleated Red Blood Cells % 0.0 Platelet Count 222 Potassium Level 3.0 L Prothrombin Time 16.2 H Prothrombin Time Ratio 1.3 Red Blood Count 4.01 L Red Cell Distribution Width 14.4 Sodium Level 142 Total Bilirubin 0.2 Total Protein 5.9 L Troponin I 0.051 White Blood Count 5.7 Test 08/21/16 15:30 08/21/16 15:50 08/21/16 18:00 08/22/16 00:43 Lactic Acid Level 2.5 H 2.0 Ammonia < 0 L Anion Gap 12 Blood Urea Nitrogen 24 H Calcium Level 7.5 L Carbon Dioxide Level 28 Chloride Level 104 Creatinine 2.54 H Free Thyroxine 1.94 Glucose Level 118 Potassium Level 2.8 *L 3.5 Sodium Level 141 Thyroid Stimulating Hormone (TSH) 5.860 H Creatine Kinase 307 H 326 H Creatine Kinase Index 2.1 2.2 Creatinine Kinase MB (Mass) 6.57 H 7.30 H Troponin I 0.067 0.068 Test 08/22/16 04:30 Activated Partial Thromboplast Time 37.5 H Alanine Aminotransferase (ALT/SGPT) 23 Albumin 2.4 L Albumin/Globulin Ratio 0.77 Alkaline Phosphatase 131 H Anion Gap 13 Aspartate Amino Transf (AST/SGOT) 34 Basophils # 0.1 Basophils % 0.6 Blood Urea Nitrogen 25 H Calcium Level 8.3 L Carbon Dioxide Level 29 Chloride Level 105 Cholesterol Level 119 Cholesterol/HDL Ratio 2.3 Creatinine 2.92 H Direct Bilirubin 0.00 Eosinophils # 0.0 Eosinophils % 0.3 Globulin 3.10 Glucose Level 91 HDL Cholesterol 51 Hematocrit 32.7 L Hemoglobin 11.0 L INR International Normalized Ratio 1.17 Indirect Bilirubin 0.2 LDL Cholesterol, Calculated 45 Lymphocytes # 1.1 Lymphocytes % 12.1 L Magnesium Level 2.1 Mean Corpuscular Hemoglobin 31.3 Mean Corpuscular Hemoglobin Concent 33.6 Mean Corpuscular Volume 92.9 Mean Platelet Volume 12.1 H Monocytes # 0.5 Monocytes % 5.8 Neutrophils # 7.0 Neutrophils % 80.9 H Nucleated Red Blood Cells # 0.0 Nucleated Red Blood Cells % 0.0 Phosphorus Level 1.6 L Platelet Count 191 Potassium Level 4.0 Prothrombin Time 15.0 H Prothrombin Time Ratio 1.2 Red Blood Count 3.52 L Red Cell Distribution Width 15.1 H Sodium Level 143 Total Bilirubin 0.2 Total Protein 5.5 L Triglycerides Level 114 White Blood Count 8.7 # Medications Medications Current Medications Nicardipine HCl (Cardene Iv) 200 ml @ 50 mls/hr TITRATE IV Last administered on 08/21/16 14:24; Admin Dose 50 MLS/HR; Start 08/21/16 at 14:00 Ondansetron HCl (Zofran Inj) 4 mg Q6H PRN IV NAUSEA AND/OR VOMITING; Start 08/21 at 15:00 Acetaminophen (Tylenol Liquid) 650 mg Q6H PRN PO PAIN LEVEL 1-3 OR FEVER; Start 08/21/16 at 15:00 Acetaminophen (Tylenol Supp) 650 mg Q4H PRN [place] PAIN LEVEL 1-3 OR FEVER; Start 08/21/16 at 15:00 Famotidine (Pepcid Iv) 20 mg Q12 IV Last administered on 08/21/16 22:01; Admin Dose 20 MG; Start 08/21/16 at 21:00 Metoprolol Tartrate 50 mg 50 mg BID PO ; Start 08/21/16 at 21:00 Cefepime HCl (Maxipime 1gm/50 ml (Pmx)) 50 ml @ 100 mls/hr Q24H IVPB ; Start at 11:00 Enalaprilat (Vasotec Iv) 1.25 mg Q6H PRN IV ELEVATED SYSTOLIC BP Last administered on 08/22/16 04:26; Admin Dose 1.25 MG; Start 08/22/16 at 02:30 GIOVANNI JOHNS Aug 22, 2016 10:03
--- NOTE | 2016-08-22 10:07 | PN ---
DATE: 08/22/2016 SUBJECTIVE: The patient remains critically ill on intensive care unit on full ventilatory support. The patient had hemodialysis, tolerated well. No other events noted. No hemoptysis, hematemesis o r hematochezia. OBJECTIVE: VITAL SIGNS: Blood pressure is 186/72, respiration 18, pulse 68, temperature 97.8. HEENT: Head is normocephalic. NECK: Supple. HEART: Regular rate. LUNGS: Show diminished breath sounds at base. ABDOMEN: Soft, nontender to palpation without rebound or guarding. EXTREMITIES: Negative for clubbing, cyanosis, no edema. DERMATOLOGIC: No rashes. MUSCULOSKELETAL: No joint effusions. NEUROLOGIC: No change in exam. MEDICATIONS: The patient's medications have been reviewed. LABORATORY DATA: Shows sodium 143, potassium 4.0, BUN 25, creatinine 2.92. White count 8.7, hemogl obin 9.0, hematocrit 32.7, platelet count is 190. ASSESSMENT AND PLAN: 1. End-stage renal disease. The patient is on dialysis Thursday, Thursday, Thursday. Had dialysis tod ay, tolerated well. Plan for dialysis tomorrow for ultrafiltration and solute clearance. 2. Hypokalemia, improved. Continue to monitor. 3. Anemia. Continue to monitor hemoglobin and hematocrit levels. Will give Epogen as needed. 4. Mineral bone disorder. Will monitor calcium and phosphorus levels. Defer phosphate binders. 5. Acute encephalopathy. Etiology is unclear, possible infectious, possible hypercapnia. The andrew ent is pending MRI to rule out CVA. Continue to monitor. 6. Acute hypoxemic respiratory failure. The patient's ABG has been reviewed, vent jaimie almonte. Continue to monitor. Follow up with Pulmonary. 7. Hypertensive urgency. Etiology is in part due to increased intravascular volume. Continue ultr afiltration dialysis. 8. Coronary artery disease. Continue current medical management. Dictated By: LAN HANKS/SANDRA Conf#: [id number] DID#: [id number]
[2016-08-22] MEDS: CEFEPIME 1GM/50 ML (PMX) 50 ML IVPB SCH (13:00)
--- NOTE | 2016-08-22 14:58 | RADRPT ---
PROCEDURE: XR Abdomen. CLINICAL INDICATION: MRI screening study for metal. TECHNIQUE: AP abdomen x-ray. COMPARISON: No. FINDINGS: Then NG tube is identified with its tip distal to the GE junction. There is a vascular sheath enter ing the right inguinal canal with its tip projecting at the level of L5. There are degenerative aaron nges in the thoracic and lumbar spine. There is a compression screw internally fixating the proxima l left femur. The right diaphragm is elevated. No acute infiltrate is identified. There is fecal material in the rectal ampulla. There is no mechanical bowel obstruction. There are clips in the right mid pelvis. IMPRESSION: 1. Fixation screw in the proximal left femur. 2. Satisfactory positioning of the vascular catheter with its tip at the level of the level of the right pedicle of the lowest lumbar vertebra. 3. Satisfactory positioning of nasogastric tube distal to the GE junction. 4. Spondylosis of the thoracic and lumbosacral spine. 5. Osteoarthritis of the left hip. RPTAT:AAJJ Physician Gilma Date Time Electronically viewed and signed by Physician Gilma on 08/22/2016 14:58 /
--- NOTE | 2016-08-22 16:40 | QN ---
Documentation Comment My IO removal: I was called out of the ER to the ICU for IO removal. I used a gentle pulling motion and was easily able to remove the intraosseous needle in the right tibia. The patient tolerated the entire procedure. There was no blood loss. Band-Aid was applied. ROBY JAIME MD Aug 22, 2016 16:40
[2016-08-22] MEDS: ACETAMINOPHEN 650MG/20.3ML CUP NGT PRN (18:21)
--- NOTE | 2016-08-22 20:53 | RADRPT ---
PROCEDURE: MR Brain without contrast. CLINICAL INDICATION: Altered level of consciousness. CVA. TECHNIQUE: An MRI of the brain was performed on a 1.5 el scanner utilizing the following sequen karie: Sagittal T1 weighted, axial T2 weighted, axial FLAIR, coronal GRE, and axial diffusion weighted with ADC mapping. COMPARISON: CT brain 08/21/2016 FINDINGS: No evidence of restricted diffusion to suggest acute or early subacute ischemic infarction. There i s no evidence of intracranial hemorrhage, mass effect, or midline shift. No extra-axial fluid collec tions are seen. Hypointense signal on gradient echo imaging in the left cerebellar hemisphere most compatible with h emosiderin staining and sequelae of remote ischemic infarct. Scattered punctate foci of signal loss which may reflect multiple cerebral cavernous angiomas or sequelae of white angiopathy. Extensive nonspecific confluent T2 signal hyperintensity throughout the deep white matter bilaterall y likely reflecting sequelae of chronic microvascular ischemic injury. Differential diagnostic cons iderations include vasculopathy and demyelinating disease. Similar findings can be seen with post therapeutic changes of chemotherapy. Correlate with the patient's clinical history. Wedge-shaped defect in the right cerebellar hemisphere compatible with remote ischemic infarct. isc hemic infarct in the right cerebellar hemisphere The ventricles subarachnoid spaces are markedly prominent compatible with diffuse cerebral parenchym al volume loss. The posterior fossa contents, brainstem, seventh - eighth cranial nerve complexes, pituitary axis, o rbits, paranasal sinuses, and mastoid air cells are unremarkable. Normal flow voids are visible in the proximal intracranial arteries and dural sinuses, indicating pa tency. IMPRESSION: 1. No acute or early subacute ischemic infarction. Extensive nonspecific chronic microvascular isch emic changes. Differential diagnostic considerations discussed above. 2. Multiple foci of signal loss on gradient echo sequences. This can be seen with multiple cerebra l cavernous angiomas. Amyloid angiopathy is also a consideration. Correlate clinically. 3. Right chronic cerebellar infarct. Hemosiderin staining in the left cerebellar hemisphere. RPTAT:AAJJ Physician Yuli Date Time Electronically viewed and signed by Physician Yuli on 08/22/2016 20:53 LY/
[2016-08-22 21:55] LABS: AADO2 Arterial 37.7 mmHg (7.0-24.0); Allen Test ACCEPTAB; Arterial Base Excess 5.9 mmol/L (-3.0-3); Arterial COHb 0.3 % (0.0-3.0); Arterial Fraction of Oxyhgb 97.7 % (93.0-99.0); Arterial HCO3 28.1 mmol/L (22.0-26.0); Arterial MetHb 0.3 % (0.0-1.5); Arterial Total Hemglobin 11.6 g/dl (12.0-18.0); MODE VENT - AC
[2016-08-23] VITALS (64 sets, daily range): BP systolic 113–195; BP diastolic 62–96; PULSE 63–97; RESP 11–24
[2016-08-23 05:45] LABS: ADD SCAN DIFF NO
[2016-08-23 05:54] LABS: BASOPHIL # 0.1 10^3/ul (0.0-0.1); BASOPHILS % 0.7 % (0.0-2.0); EOSINOPHILS % 0.6 % (0.0-7.0); HEMATOCRIT 29.2 % (37.0-47.0); HEMOGLOBIN 9.8 g/dl (12.0-16.0); LYMPHOCYTES # 1.3 10^3/ul (0.8-2.9); LYMPHOCYTES % 17.7 % (15.0-51.0); MEAN CORPUSCULAR HEMOGLOBIN 31.2 pg (29.0-33.0); MEAN CORPUSCULAR HGB CONC 33.6 g/dl (32.0-37.0); MEAN PLATELET VOLUME 12.2 fl (7.4-10.4); MONOCYTE # 0.5 10^3/ul (0.3-0.9); NEUTROPHIL # 5.3 10^3/ul (1.6-7.5); NEUTROPHILS % 73.7 % (39.0-77.0); PLATELET COUNT 173 10^3/UL (140-415); RED BLOOD COUNT 3.14 10^6/ul (4.20-5.40); RED CELL DISTRIBUTION WIDTH 15.4 % (11.5-14.5); WHITE BLOOD COUNT 7.2 10^3/ul (4.8-10.8)
[2016-08-23 05:58] LABS: INR 1.42; PROTIME 17.4 Sec (12.2-14.2); PT RATIO 1.4
[2016-08-23 05:59] LABS: PARTIAL THROMBOPLASTIN TIME 31.1 Sec (25.0-35.0)
[2016-08-23 06:15] LABS: POTASSIUM 3.4 mmol/L (3.5-5.1)
[2016-08-23 06:17] LABS: CREATININE 2.79 mg/dl (0.44-1.00)
[2016-08-23 06:18] LABS: CALCIUM 8.4 mg/dl (8.4-10.2); MAGNESIUM 2.1 mg/dl (1.7-2.5); PHOSPHORUS 1.7 mg/dl (2.5-4.9)
[2016-08-23] MEDS ORDERED: POTASSIUM PHOSPHATE 20 MEQ in SOD CHLORIDE 0.9% 250 ML IVPB ONE (08:00)
[2016-08-23] MEDS ORDERED: EPOETIN 10000 UNITS/1 ML INJ (ESRD) SC SCH (08:00)
[2016-08-23] MEDS ORDERED: POTASSIUM CHLORIDE 250 ML IVPB ONE (08:00)
[2016-08-23] MEDS: SEVELAMER 400 MG TAB PO SCH ×3 (08:15→17:55)
[2016-08-23] MEDS: METOPROLOL 50 MG TAB PO SCH ×2 (08:15→20:33)
[2016-08-23] MEDS: FAMOTIDINE 20 MG INJ IV SCH (08:15)
[2016-08-23] MEDS: DEXTROSE 5% 1,000 ML IV SCH (08:16)
[2016-08-23 08:48] LABS: AADO2 Arterial 46.1 mmHg (7.0-24.0); Allen Test ACCEPTAB; Arterial Base Excess 2.4 mmol/L (-3.0-3); Arterial COHb 0.3 % (0.0-3.0); Arterial Fraction of Oxyhgb 97.5 % (93.0-99.0); Arterial HCO3 24.7 mmol/L (22.0-26.0); Arterial MetHb 0.3 % (0.0-1.5); Arterial Total Hemglobin 11.2 g/dl (12.0-18.0); MODE VENT - AC
--- NOTE | 2016-08-23 10:40 | PN ---
DATE: 08/23/2016 SUBJECTIVE: The patient remains critically ill on full ventilatory support. No other acute events noted. No hemoptysis, hematemesis or hematochezia. The patient had hemodialysis yesterday, tolerat ed well. Plan for dialysis today. No other events noted. OBJECTIVE: VITAL SIGNS: Blood pressure 139/60, respirations 15, pulse 68, temperature 98.6. HEENT: Head is normocephalic. NECK: Supple. HEART: Regular rate. LUNGS: Show diminished breath sounds at base. ABDOMEN: Soft, nontender to palpation without rebound or guarding. EXTREMITIES: Negative for clubbing, cyanosis, no edema. DERMATOLOGIC: No rashes. MUSCULOSKELETAL: No joint effusions. NEUROLOGIC: No change in exam. MEDICATIONS: Have been reviewed. LABORATORY DATA: Shows white count 7.2, hemoglobin 9.8, hematocrit 29.9, platelet count is 173. So dium 145, potassium 2.4, chloride 106, BUN 19, creatinine 2.79, phosphorus 1.7. ABG was reviewed. IMAGING STUDIES: The patient's MRI of the brain shows no acute or early subacute infarct with multi -foci single loss amyloid angiopathy is a consideration and chronic cerebral and cerebellar infarct. ASSESSMENT AND PLAN: 1. End-stage renal disease. The patient will be scheduled for dialysis today for 3 hours, 2K bath, calcium 2.5, ultrafiltrate as tolerated. 2. Hypernatremia. The patient has free water deficit of 2 liters. Will start the patient on D5W a t 50 mL an hour. 3. Hypokalemia. We will replete potassium chloride at 40 mEq and dialyze the patient on a high pot assium bath. 4. Hypophosphatemia. We will replete with 20 mEq of potassium phosphate. 5. Ventilator-dependent respiratory failure. Vent settings have been reviewed. ABG has been revie wed. Continue to monitor. 6. Acute encephalopathy on top of dementia. Etiology is unclear, possibly infectious. The patient 's MRI showed no acute findings. Continue to monitor. 7. Hypertensive urgency, improved. Continue ultrafiltration with hemodialysis. 8. History of coronary artery disease. Continue medical management. 9. Possible sepsis, urinary tract infection. Continue current antibiotic regimen. 10. Anemia of end-stage renal disease. Monitor H and H levels. Will give Epogen with dialysis. Dictated By: LAN HANKS/SANDRA Conf#: [id number] DID#: [id number]
[2016-08-23] MEDS: CEFEPIME 1GM/50 ML (PMX) 50 ML IVPB SCH (11:54)
[2016-08-23] MEDS: ENALAPRILAT 1.25 MG INJ IV PRN (12:21)
--- NOTE | 2016-08-23 12:31 | PN ---
Date/Time of Note Date/Time of Note DATE: 08/23/16 TIME: 12:12 Assessment/Plan VTE Prophylaxis VTE Prophylaxis Intervention: SCD's Lines/Catheters IV Catheter Type (from Nrsg): Central Line Central line still needed: Yes (for IV access ) Urinary Cath still in place: Yes Reason Cath still needed: other (indicate) (d/c soon) Assessment/Plan Assessment/Plan 71-year-old female with: 1. Acute and severe encephalopathy with [place] Coma Score of 3 on arrival to ED. Required intubation for airway protection. MRI negative and CT head negative OFF propofol x 24 hrs almost and still minimal response EEG pending and Neurology consult with Dr Powell ? sepsis as the patient was at first hypotensive on dialysis at the time of loss of consciousness. Urine cx with ESBL, on cefepime, will change to imipenem. 2. Acute respiratory failure related to severe encephalopathy on admission. On Vent, stable and Pulmonary following MRI brain negative Pulmonary following Neuro work up ongoing 3. Severe hypertension on admission. BP better and targeting normotensive BP. Continue Metoprolol and Vasotec prn for now 4. End-stage renal disease. HD today Dr. Saldana following. 5. Hypokalemia. adjusting with HD Appreciate assistance from Dr Nash. 6. Anemia of chronic disease, stable H/H so far. 7. ESBL Urinary tract infection, change Abx to Imipenem Lactic acid wnl. Prophylaxis: Sequential compression devices to lower extremity for DVT prophylaxis and Pepcid for GI prophylaxis. DISPOSITION: ICU care, EEG and Neurology consult with Dr Powell Pulmonary and Nephrology following. Subjective 24 Hr Interval Summary Free Text/Dictation Patient minimally responsive, only opens eye and not tracking, off propofol x 24 hrs MRI Brain with no acute findings per Radiology read Afebrile EEG and Neurology consult pending Exam/Review of Systems Vital Signs Vitals Vital Signs Date Time Temp Pulse Resp B/P Pulse Ox O2 Delivery O2 Flow Rate FiO2 08/23/16 11:30 69 17 149/76 100 Mechanical Ventilator 08/23/16 08:00 98.0 08/23/16 08:00 30 Intake and Output 08/22/16 08/22/16 08/23/16 15:00 23:00 07:00 Intake Total 50 ml 30 ml Output Total 5 ml 5 ml 0 ml Balance 45 ml 25 ml 0 ml Exam Constitutional: other (minimally responsive, opens eyes but not tracking ) Respiratory: clear to auscultation, normal air movement Cardiovascular: nl pulses, regular rate and rhythm Gastrointestinal: non-tender, soft Musculoskeletal: nl extremities to inspection, other (no edema, clubbing or cyanosis ) Extremities: normal pulses Neurological: SLOT FLOOR ATTENDANT II-XII intact, unresponsive (mostly ) Results Result Diagram: 08/23/16 0430 08/23/16 0445 Results 24 hrs Laboratory Tests Test 08/22/16 21:30 08/23/16 04:30 08/23/16 04:45 08/23/16 07:00 Arterial Blood HCO3 28.1 H 24.7 Arterial Blood Base Excess 5.9 H 2.4 Arterial Blood Oxygen Saturation 98.3 98.1 Kristopher Test ACCEPTAB ACCEPTAB Arterial Blood Gas Puncture Site Right Radial Right Radial Arterial Blood Carboxyhemoglobin 0.3 0.3 Arterial Blood Date Drawn 08/22/2016 9:40:40 PM 08/23/2016 8:25:23 AM Arterial Blood Methemoglobin 0.3 0.3 Arterial Blood pCO2 (Temp correct) 32.6 L 30.8 L Arterial Blood pH (Temp corrected) 7.554 *H 7.522 H Arterial Blood pO2 (Temp corrected) 137.9 H 131.6 H Blood Gas A-a O2 Differential 37.7 H 46.1 H Blood Gas Actual Respiration Rate 17 16 Blood Gas Critical Value Read Back RLIM RN Blood Gas Low PEEP Setting 5.0 5.0 Blood Gas Modality VENT - AC VENT - AC Blood Gas Notified Time 08/22/2016 9:55:33 PM 08/23/2016 8:48:08 AM Blood Gas Notified Whom LISA DT Blood Gas Respiration Rate 16.0 16.0 Blood Gas Specimen Source Blood arterial Blood arterial Blood Gas Temperature 37.0 37.0 Blood Gas Tidal Volume 450.0 400.0 FiO2 30.0 30.0 Oxyhemoglobin Percent 97.7 97.5 Total Hemoglobin 11.6 L 11.2 L Basophils # 0.1 Basophils % 0.7 Eosinophils # 0.0 Eosinophils % 0.6 Hematocrit 29.2 L Hemoglobin 9.8 L Lymphocytes # 1.3 Lymphocytes % 17.7 Mean Corpuscular Hemoglobin 31.2 Mean Corpuscular Hemoglobin Concent 33.6 Mean Corpuscular Volume 93.0 Mean Platelet Volume 12.2 H Monocytes # 0.5 Monocytes % 7.0 Neutrophils # 5.3 Neutrophils % 73.7 Nucleated Red Blood Cells # 0.0 Nucleated Red Blood Cells % 0.0 Platelet Count 173 Red Blood Count 3.14 L Red Cell Distribution Width 15.4 H White Blood Count 7.2 Activated Partial Thromboplast Time 31.1 Anion Gap 10 Blood Urea Nitrogen 19 Calcium Level 8.4 Carbon Dioxide Level 32 H Chloride Level 106 Creatinine 2.79 H Glucose Level 82 INR International Normalized Ratio 1.42 Magnesium Level 2.1 Phosphorus Level 1.7 L Potassium Level 3.4 L Prothrombin Time 17.4 H Prothrombin Time Ratio 1.4 Sodium Level 145 H Medications Medications Current Medications Ondansetron HCl (Zofran Inj) 4 mg Q6H PRN IV NAUSEA AND/OR VOMITING; Start 08/21 at 15:00 Acetaminophen (Tylenol Supp) 650 mg Q4H PRN [place] PAIN LEVEL 1-3 OR FEVER; Start 08/21/16 at 15:00 Metoprolol Tartrate 50 mg 50 mg BID PO Last administered on 08/23/16 08:15; Admin Dose 50 MG; Start 08/21/16 at 21:00 Cefepime HCl (Maxipime 1gm/50 ml (Pmx)) 50 ml @ 100 mls/hr Q24H IVPB Last administered on 08/23/16 11:54; Admin Dose 100 MLS/HR; Start 08/22/16 at 11:00 Enalaprilat (Vasotec Iv) 1.25 mg Q6H PRN IV ELEVATED SYSTOLIC BP Last administered on 08/22/16 16:11; Admin Dose 1.25 MG; Start 08/22/16 at 02:30 Famotidine (Pepcid Iv) 20 mg DAILY IV Last administered on 08/23/16 08:15; Admin Dose 20 MG; Start 08/22/16 at 10:30 Acetaminophen 650 mg 650 mg Q4H PRN NGT PAIN AND OR ELEVATED TEMP Last administered on 08/22/16 18:21; Admin Dose 650 MG; Start 08/22/16 at 17:30 Nicardipine HCl 25 mg/Dextrose 250 ml @ 50 mls/hr TITRATE IV ; Start 08/22/16 at 20:00 Dextrose 1,000 ml @ 50 mls/hr Q20H IV Last administered on 08/23/16 08:16; Admin Dose 50 MLS/HR; Start 08/23/16 at 08:00 Potassium Phosphate 20 meq/ Sodium Chloride 254.5455 ml @ 63.636 m... ONCE ONCE IVPB Last administered on 08/23/16 09:27; Admin Dose 63.636 MLS/HR; Start 08/23/16 at 08:00; Stop 08/23/16 at 11:59 Potassium Chloride (KCl 40 MEQ/250 ML NS) 250 ml @ 62.5 mls/hr ONCE ONCE IVPB Last administered on 08/23/16 08:16; Admin Dose 62.5 MLS/HR; Start 08/23/16 at 08:00; Stop 08/23/16 at 11:59 Procedures Procedures PROCEDURE: MR Brain without contrast. CLINICAL INDICATION: Altered level of consciousness. CVA. TECHNIQUE: An MRI of the brain was performed on a 1.5 el scanner utilizing the following sequences: Sagittal T1 weighted, axial T2 weighted, axial FLAIR, coronal GRE, and axial diffusion weighted with ADC mapping. COMPARISON: CT brain 08/21/2016 FINDINGS: No evidence of restricted diffusion to suggest acute or early subacute ischemic infarction. There is no evidence of intracranial hemorrhage, mass effect, or midline shift. No extra-axial fluid collections are seen. Hypointense signal on gradient echo imaging in the left cerebellar hemisphere most compatible with hemosiderin staining and sequelae of remote ischemic infarct. Scattered punctate foci of signal loss which may reflect multiple cerebral cavernous angiomas or sequelae of white angiopathy. Extensive nonspecific confluent T2 signal hyperintensity throughout the deep white matter bilaterally likely reflecting sequelae of chronic microvascular ischemic injury. Differential diagnostic considerations include vasculopathy and demyelinating disease. Similar findings can be seen with post therapeutic changes of chemotherapy. Correlate with the patient's clinical history. Wedge-shaped defect in the right cerebellar hemisphere compatible with remote ischemic infarct. ischemic infarct in the right cerebellar hemisphere The ventricles subarachnoid spaces are markedly prominent compatible with diffuse cerebral parenchymal volume loss. The posterior fossa contents, brainstem, seventh - eighth cranial nerve complexes, pituitary axis, orbits, paranasal sinuses, and mastoid air cells are unremarkable. Normal flow voids are visible in the proximal intracranial arteries and dural sinuses, indicating patency. IMPRESSION: 1. No acute or early subacute ischemic infarction. Extensive nonspecific chronic microvascular ischemic changes. Differential diagnostic considerations discussed above. 2. Multiple foci of signal loss on gradient echo sequences. This can be seen with multiple cerebral cavernous angiomas. Amyloid angiopathy is also a consideration. Correlate clinically. 3. Right chronic cerebellar infarct. Hemosiderin staining in the left cerebellar hemisphere. RPTAT:AAJJ Indy Pereira Physician Date Time Electronically viewed and signed by Indy Pereira Physician on 08/22/2016 20:53 JACQUES ACHARYA Aug 23, 2016 12:26
[2016-08-23] MEDS: IMIPENEM-CILAST 500MG IV (PMX) 100 ML IVPB SCH ×2 (13:00→20:32)
[2016-08-23] MEDS: NIFEdipine (XL) 30 MG TAB PO SCH (15:33)
--- NOTE | 2016-08-23 16:38 | CONS ---
Date/Time of Note Date/Time of Note DATE: 08/23/16 TIME: 16:33 Consult Date/Type/Reason Admit Date/Time Aug 21, 2016 at 13:37 Initial Consult Date 08/21/16 Type of Consultation: Pulmonary/critical care Subjective No events. On mechanical ventilation. Objective Vital Signs Date Time Temp Pulse Resp B/P Pulse Ox O2 Delivery O2 Flow Rate FiO2 08/23/16 15:17 81 18 08/23/16 14:30 166/94 100 Mechanical Ventilator 08/23/16 12:00 98.5 08/23/16 11:20 30 Intake and Output 08/22/16 08/22/16 08/23/16 15:00 23:00 07:00 Intake Total 50 ml 30 ml Output Total 5 ml 5 ml 0 ml Balance 45 ml 25 ml 0 ml HEENT: Neck supple; no JVD; no LAD CVS: RRR, S1 and S2 CHEST: Clear ABD: Soft, NT, + BS EXT: No c/c/e Results/Medications Result Diagram: 08/23/16 0430 08/23/16 0445 Results 24 hrs Laboratory Tests Test 08/22/16 21:30 08/23/16 04:30 08/23/16 04:45 08/23/16 07:00 Arterial Blood HCO3 28.1 H 24.7 Arterial Blood Base Excess 5.9 H 2.4 Arterial Blood Oxygen Saturation 98.3 98.1 Kristopher Test ACCEPTAB ACCEPTAB Arterial Blood Gas Puncture Site Right Radial Right Radial Arterial Blood Carboxyhemoglobin 0.3 0.3 Arterial Blood Date Drawn 08/22/2016 9:40:40 PM 08/23/2016 8:25:23 AM Arterial Blood Methemoglobin 0.3 0.3 Arterial Blood pCO2 (Temp correct) 32.6 L 30.8 L Arterial Blood pH (Temp corrected) 7.554 *H 7.522 H Arterial Blood pO2 (Temp corrected) 137.9 H 131.6 H Blood Gas A-a O2 Differential 37.7 H 46.1 H Blood Gas Actual Respiration Rate 17 16 Blood Gas Critical Value Read Back RLIM RN Blood Gas Low PEEP Setting 5.0 5.0 Blood Gas Modality VENT - AC VENT - AC Blood Gas Notified Time 08/22/2016 9:55:33 PM 08/23/2016 8:48:08 AM Blood Gas Notified Whom MA DT Blood Gas Respiration Rate 16.0 16.0 Blood Gas Specimen Source Blood arterial Blood arterial Blood Gas Temperature 37.0 37.0 Blood Gas Tidal Volume 450.0 400.0 FiO2 30.0 30.0 Oxyhemoglobin Percent 97.7 97.5 Total Hemoglobin 11.6 L 11.2 L Basophils # 0.1 Basophils % 0.7 Eosinophils # 0.0 Eosinophils % 0.6 Hematocrit 29.2 L Hemoglobin 9.8 L Lymphocytes # 1.3 Lymphocytes % 17.7 Mean Corpuscular Hemoglobin 31.2 Mean Corpuscular Hemoglobin Concent 33.6 Mean Corpuscular Volume 93.0 Mean Platelet Volume 12.2 H Monocytes # 0.5 Monocytes % 7.0 Neutrophils # 5.3 Neutrophils % 73.7 Nucleated Red Blood Cells # 0.0 Nucleated Red Blood Cells % 0.0 Platelet Count 173 Red Blood Count 3.14 L Red Cell Distribution Width 15.4 H White Blood Count 7.2 Activated Partial Thromboplast Time 31.1 Anion Gap 10 Blood Urea Nitrogen 19 Calcium Level 8.4 Carbon Dioxide Level 32 H Chloride Level 106 Creatinine 2.79 H Glucose Level 82 INR International Normalized Ratio 1.42 Magnesium Level 2.1 Phosphorus Level 1.7 L Potassium Level 3.4 L Prothrombin Time 17.4 H Prothrombin Time Ratio 1.4 Sodium Level 145 H Medications Current Medications Ondansetron HCl (Zofran Inj) 4 mg Q6H PRN IV NAUSEA AND/OR VOMITING; Start 08/21 at 15:00 Acetaminophen (Tylenol Supp) 650 mg Q4H PRN [place] PAIN LEVEL 1-3 OR FEVER; Start 08/21/16 at 15:00 Metoprolol Tartrate (Lopressor) 50 mg BID PO Last administered on 08/23/16 08: 15; Admin Dose 50 MG; Start 08/21/16 at 21:00 Enalaprilat (Vasotec Iv) 1.25 mg Q6H PRN IV ELEVATED SYSTOLIC BP Last administered on 08/23/16 12:21; Admin Dose 1.25 MG; Start 08/22/16 at 02:30 Famotidine (Pepcid Iv) 20 mg DAILY IV Last administered on 08/23/16 08:15; Admin Dose 20 MG; Start 08/22/16 at 10:30 Acetaminophen 650 mg 650 mg Q4H PRN NGT PAIN AND OR ELEVATED TEMP Last administered on 08/22/16 18:21; Admin Dose 650 MG; Start 08/22/16 at 17:30 Nicardipine HCl 25 mg/Dextrose 250 ml @ 50 mls/hr TITRATE IV ; Start 08/22/16 at 20:00 Dextrose 1,000 ml @ 50 mls/hr Q20H IV Last administered on 08/23/16 08:16; Admin Dose 50 MLS/HR; Start 08/23/16 at 08:00 Potassium Phosphate 20 meq/ Sodium Chloride 254.5455 ml @ 63.636 m... ONCE ONCE IVPB Last administered on 08/23/16 09:27; Admin Dose 63.636 MLS/HR; Start 08/23/16 at 08:00; Stop 08/23/16 at 11:59 Potassium Chloride 250 ml @ 62.5 mls/hr ONCE ONCE IVPB Last administered on 08:16; Admin Dose 62.5 MLS/HR; Start 08/23/16 at 08:00; Stop 08/23/16 at 11:59 Imipenem/ Cilastatin Sodium (Primaxin 500 Mg/ 100 ml (Pmx)) 100 ml @ 100 mls/ hr Q12 IVPB ; Start 08/23/16 at 13:00 Nifedipine (Procardia Xl) 30 mg DAILY PO Last administered on 08/23/16 15:33; Admin Dose 30 MG; Start 08/23/16 at 15:30 Assessment/Plan Additional Assessment/Plan IMPRESSION: 1. Respiratory Failure/Vent Dependence 2. Renal Failure 3. AMS-etiology not entirely clear. Remains minimally responsive off propofol gtt 4. HTN Crisis 5. Anemia RECS: 1. Will await EEG 2. Consider LP 3. Am labs 4. Vent support for now 5. Bioethics evaluation 35 min cc time LINDA HUNG MD Aug 23, 2016 16:38
[2016-08-23] MEDS: COLLAGENASE 30 GM TUBE TOP SCH (20:32)
[2016-08-24] VITALS (53 sets, daily range): BP systolic 70–169; BP diastolic 47–99; PULSE 60–113; RESP 14–29
[2016-08-24 05:21] LABS: AADO2 Arterial 40.4 mmHg (7.0-24.0); Allen Test ACCEPTAB; Arterial Base Excess 7.6 mmol/L (-3.0-3); Arterial COHb 0.4 % (0.0-3.0); Arterial Fraction of Oxyhgb 97.3 % (93.0-99.0); Arterial HCO3 30.4 mmol/L (22.0-26.0); Arterial MetHb 0.6 % (0.0-1.5); Arterial Total Hemglobin 10.3 g/dl (12.0-18.0); MODE VENT - AC
[2016-08-24 05:44] LABS: POTASSIUM 4.5 mmol/L (3.5-5.1)
[2016-08-24 05:46] LABS: BASOPHIL # 0.1 10^3/ul (0.0-0.1); BASOPHILS % 0.3 % (0.0-2.0); EOSINOPHILS # 0.2 10^3/ul (0.0-0.5); HEMOGLOBIN 11.2 g/dl (12.0-16.0); LYMPHOCYTES # 1.9 10^3/ul (0.8-2.9); LYMPHOCYTES % 9.6 % (15.0-51.0); MEAN CORPUSCULAR HEMOGLOBIN 31.4 pg (29.0-33.0); MEAN CORPUSCULAR HGB CONC 33.9 g/dl (32.0-37.0); MEAN CORPUSCULAR VOLUME 92.5 fl (82.0-101.0); MEAN PLATELET VOLUME 8.7 fl (7.4-10.4); MONOCYTE # 1.4 10^3/ul (0.3-0.9); MONOCYTES % 6.8 % (0.0-11.0); NEUTROPHIL # 16.7 10^3/ul (1.6-7.5); NEUTROPHILS % 82.3 % (39.0-77.0); PLATELET COUNT 338 10^3/UL (140-440); RED BLOOD COUNT 3.57 10^6/ul (4.20-5.40); RED CELL DISTRIBUTION WIDTH 15.5 % (11.5-14.5); UNCORRECTED WBC 20.3 10^3/ul (4.8-10.8); WHITE BLOOD COUNT 20.3 10^3/ul (4.8-10.8)
[2016-08-24 05:47] LABS: CALCIUM 8.2 mg/dl (8.4-10.2); MAGNESIUM 2.7 mg/dl (1.7-2.5); PHOSPHORUS 8.7 mg/dl (2.5-4.9)
[2016-08-24 06:16] LABS: CONDITION 1; LH ANALYZER COMMENTS 1
[2016-08-24 06:21] LABS: CREATININE 7.72 mg/dl (0.44-1.00)
[2016-08-24 08:17] LABS: ALBUMIN 2.4 g/dl (3.3-4.9)
[2016-08-24 08:18] LABS: POTASSIUM 3.4 mmol/L (3.5-5.1)
[2016-08-24 08:20] LABS: ALBUMIN/GLOBULIN RATIO 0.77; BILIRUBIN,INDIRECT 0.8 mg/dl (0-1.1); BILIRUBIN,TOTAL 0.8 mg/dl (0.2-1.3); CREATININE 2.04 mg/dl (0.44-1.00); TOTAL PROTEIN 5.5 g/dl (6.1-8.1)
[2016-08-24 08:21] LABS: CALCIUM 8.1 mg/dl (8.4-10.2); MAGNESIUM 1.9 mg/dl (1.7-2.5); PHOSPHORUS 1.9 mg/dl (2.5-4.9)
[2016-08-24 08:22] LABS: BASOPHILS % 0.2 % (0.0-2.0); EOSINOPHILS # 0.2 10^3/ul (0.0-0.5); EOSINOPHILS % 2.4 % (0.0-7.0); HEMATOCRIT 29.3 % (37.0-47.0); HEMOGLOBIN 9.8 g/dl (12.0-16.0); LYMPHOCYTES # 1.3 10^3/ul (0.8-2.9); LYMPHOCYTES % 16.9 % (15.0-51.0); MEAN CORPUSCULAR HEMOGLOBIN 31.4 pg (29.0-33.0); MEAN CORPUSCULAR HGB CONC 33.2 g/dl (32.0-37.0); MEAN CORPUSCULAR VOLUME 94.4 fl (82.0-101.0); MONOCYTE # 0.8 10^3/ul (0.3-0.9); MONOCYTES % 9.8 % (0.0-11.0); NEUTROPHIL # 5.5 10^3/ul (1.6-7.5); NEUTROPHILS % 70.7 % (39.0-77.0); PLATELET COUNT 139 10^3/UL (140-440); RED BLOOD COUNT 3.11 10^6/ul (4.20-5.40); RED CELL DISTRIBUTION WIDTH 16.1 % (11.5-14.5); UNCORRECTED WBC 7.8 10^3/ul (4.8-10.8); WHITE BLOOD COUNT 7.8 10^3/ul (4.8-10.8)
[2016-08-24 08:28] LABS: CONDITION 1; LH ANALYZER COMMENTS 1
--- NOTE | 2016-08-24 08:39 | PN ---
DATE: 08/24/2016 SUBJECTIVE: The patient remains critically ill on ventilatory support. The patient had hemodialysi s yesterday with approximately 1.5 liters removed. No other acute events noted. No hemoptysis, hem atemesis or hematochezia. OBJECTIVE: VITAL SIGNS: Blood pressure is 157/78, respiration is 17, pulse 66, temperature 99.1. I's AND O'S: The patient had 2 L in, 1.5 L out. HEENT: Head is normocephalic. NECK: Supple. HEART: Regular rate. LUNGS: Show diminished breath sounds at the base. ABDOMEN: Soft, nontender to palpation without rebound or guarding. EXTREMITIES: Negative for clubbing, cyanosis, edema. DERMATOLOGIC: No rashes. MUSCULOSKELETAL: No joint effusions. NEUROLOGIC: No change in exam. MEDICATIONS: Reviewed. LABORATORY DATA: Currently pending. ASSESSMENT AND PLAN: 1. End-stage renal disease. The patient had hemodialysis yesterday, tolerated well. Plan for dial ysis tomorrow for 3 hours, 2K bath, calcium 2.5. 2. Hypernatremia, improved. The patient is on D5W. We will continue. We will discontinue once th e patient starts tube feeding. 3. Hypokalemia. The patient was dialyzed on a 4 potassium bath. We will follow up renal panel whi ch is pending. 4. Hypophosphatemia. The patient is status post potassium phosphate. We will continue to monitor. 5. Ventilator dependent respiratory failure. Vent settings have been reviewed. ABG has been revie wed. Continue to monitor. 6. Acute encephalopathy and dementia. Etiology is unclear, possibly anoxic injury, possible infect ious, toxic metabolic. The patient is status post MRI, no acute findings. Continue to monitor. Fo llow up with neurology. 7. Hypertensive urgency, improved. Continue ultrafiltration with hemodialysis. 8. History of coronary artery disease. Continue medical management. 9. Possible sepsis, urinary tract infection. Continue current antibiotic regimen. 10. Anemia of end-stage renal disease. Continue to monitor hemoglobin and hematocrit levels. Cont inue Epogen. Dictated By: LAN HANKS/SANDRA Conf#: [id number] DID#: [id number]
[2016-08-24] MEDS: SEVELAMER 400 MG TAB PO SCH ×3 (08:46→18:07)
[2016-08-24] MEDS: DEXTROSE 5% 1,000 ML IV SCH ×2 (08:46→20:51)
[2016-08-24] MEDS: IMIPENEM-CILAST 500MG IV (PMX) 100 ML IVPB SCH ×2 (08:47→20:50)
[2016-08-24] MEDS: NIFEdipine (XL) 30 MG TAB PO SCH (08:47)
[2016-08-24] MEDS: METOPROLOL 50 MG TAB PO SCH ×2 (08:47→21:00)
[2016-08-24] MEDS: COLLAGENASE 30 GM TUBE TOP SCH (08:48)
[2016-08-24] MEDS: FAMOTIDINE 20 MG INJ IV SCH (08:54)
[2016-08-24] MEDS ORDERED: POTASSIUM CHLORIDE 250 ML IVPB ONE (09:30)
--- NOTE | 2016-08-24 09:38 | CONS ---
DATE OF ADMISSION: 08/21/2016 DATE OF CONSULTATION: 08/23/2016 NEUROLOGICAL CONSULTATION Thank you, Dr. Acharya, for your kind referral for evaluation of encephalopathy. HISTORY OF PRESENT ILLNESS: The patient is a 71-year-old lady with extensive past medical history of end-stage renal disease, hypertension, dyslipidemia, anemia, coronary artery disease, and dementia who was brought from dialysis with altered level of consciousness, was intubated. Ongoing medical problems, currently respiratory failure. According to the chart, she was hypertensive. She had MRI of the brain which shows absence of acute ischemic strokes though extensive white matter disease seen. Scattered punctate foci of signal loss on gradient echo could reflect multiple cerebral cavernous angiomas versus amyloid angiopathy. CURRENT LABORATORY DATA: Hemoglobin 9.8, hematocrit 29.2, normal WBCs and platelets. Sodium 145, potassium 3.4, bicarbonate 32, creatinine 2.79, BUN 19, alkaline phosphatase 131, albumin 2.4. Rest of comprehensive metabolic panel within normal limits. Normal CK level. PT 17, PTT 31. Urinalysis: 3+ leukocyte esterase, 3+ hemoglobin, 25 to 50 WBCs. Blood gas, pH 7.52, pCO2 30, pO2 131. CURRENT MEDICATIONS: 1. Nifedipine. 2. Imipenem. 3. Nicardipine. 4. Epogen. 5. Vasotec p.r.n. 6. Lopressor. 7. Renagel. ALLERGIES: NONE. SOCIAL HISTORY: No alcohol, tobacco, drug use. FAMILY HISTORY: Noncontributory. PHYSICAL EXAMINATION: TODAY VITAL SIGNS: Temperature 98.5, 72 pulse, 18 respirations, 166/94 blood pressure. GENERAL: The patient is not in acute distress, lying in bed, intubated orally. HEENT: Normocephalic, atraumatic head. NECK: Supple neck. No meningeal signs. LUNGS: Clear to auscultation bilaterally. CARDIAC: Normal cardiac rhythm and sounds. ABDOMEN: Soft. Present bowel sounds. EXTREMITIES: No cyanosis, clubbing or edema. NEUROLOGIC: Patient is lethargic but opens eyes to voice. Does not follow commands. Conjugate eye deviation to the right. No definite response to visual threat. Pupils reactive from 3 to 2 mm bilaterally. Extraocular movements seem to be present with oculocephalic maneuver. No spontaneous eye movements. Corneal reflexes present bilaterally as well as gag. Motor strength examination shows symmetrical, trace withdrawal of extremities to noxious stimuli. Flaccid tone. Deep tendon reflexes 2+ upper extremities, was not able to get in lower extremities. Upgoing toes bilaterally. IMPRESSION: 1. Acute encephalopathy. 2. Respiratory failure, 3. Urinary tract infection. 4. End-stage renal disease. 5. Strokes were ruled out by MRI. Encephalopathy could be toxic metabolic in etiology. There is deviation of the eyes. Theoretically it could be related to seizure. No definite seizures recorded. Usually with seizures, it is impossible to get any eye movement even with oculocephalic maneuver, though here patient seemed to be able to move her eyes with oculocephalic maneuver. I do not think that we should start on antiepileptic medications currently but rather wait for EEG to be done; it was ordered already. Thank you very much for this interesting consultation. We will continue to follow patient and results of her diagnostic studies. Dictated By: DICK WATERS MD YV/NTS Conf#: [id number] DID#: [id number] CC: JACQUES ACHARYA MD;*EndCC* MTDD
--- NOTE | 2016-08-24 09:46 | RADRPT ---
PROCEDURE: XR Chest. CLINICAL INDICATION: Shortness of breath. TECHNIQUE: Single frontal view. COMPARISON: 08/22/2016. FINDINGS: The endotracheal tube remains in satisfactory position. The tip of the nasogastric tube is in the s tomach. However, the upper portion of the tube is partially coiled in the pharynx. Mild interstiti al pulmonary edema is unchanged. The lungs are otherwise clear. The heart size is normal. There is calcification in the aorta consistent with atherosclerosis. There is no pleural effusion. There is no pneumothorax. IMPRESSION: 1. Nasogastric tube tip in the stomach. The upper portion of the nasogastric tube is partially coi led in the pharynx. 2. No other change from 08/22/2016. RPTAT: QQ .Maxwell Granado MD, Date Time Electronically viewed and signed by .Maxwell Granado MD, MD on 08/24/2016 09:46 .R/
--- NOTE | 2016-08-24 11:49 | PN ---
Date/Time of Note Date/Time of Note DATE: 08/24/16 TIME: 11:33 Assessment/Plan VTE Prophylaxis VTE Prophylaxis Intervention: SCD's Lines/Catheters IV Catheter Type (from Nrsg): Central Line Central line still needed: Yes (fo IV access ) Urinary Cath still in place: Yes Reason Cath still needed: terminal illness/intractable pain Assessment/Plan Assessment/Plan 71-year-old female with: 1. Acute and severe encephalopathy with Happy Coma Score of 3 on arrival to ED. Required intubation for airway protection. Off propofol x 48hrs and still very minimally responsive MRI negative and CT head negative EEG pending and appreciate Neurology consult with Dr Powell, LP will be considered if EEG unrevealing ? sepsis as the patient was at first hypotensive on dialysis at the time of loss of consciousness. Urine cx with ESBL, on Imipenem now. 2. Acute respiratory failure related to severe encephalopathy on admission. On Vent, stable and Pulmonary following MRI brain negative, EEG pending Pulmonary following Neuro work up ongoing 3. Severe hypertension on admission. BP better but labile and targeting normotensive BP, now patient hypotensive again Continue Metoprolol and Vasotec prn for now, d/c Nifedipine ? Check random cortisol level 4. End-stage renal disease. HD yesterday. Dr. Saldana following. 5. Hypokalemia. adjusting with HD Appreciate assistance from Dr Nash. 6. Anemia of chronic disease, stable H/H so far. 7. ESBL Urinary tract infection, on Imipenem now and on contact precautions. Lactic acid wnl. Prophylaxis: Sequential compression devices to lower extremity for DVT prophylaxis and Pepcid for GI prophylaxis. DISPOSITION: ICU/Vent care, EEG pending and appreciate Neurology, Nephrology and Pulmonary follow up marketing services vice president and Palliative care consult as may need Bioethics as no relative identified so far. Subjective 24 Hr Interval Summary Free Text/Dictation Patient off propofol x 48 hrs and unresponsive mostly Afebrile but labile BP Neurology following now and EEG pending Exam/Review of Systems Vital Signs Vitals Vital Signs Date Time Temp Pulse Resp B/P Pulse Ox O2 Delivery O2 Flow Rate FiO2 08/24/16 11:00 68 16 79/53 99 Mechanical Ventilator 08/24/16 08:00 98.7 08/24/16 08:00 30 Intake and Output 08/23/16 08/23/16 08/24/16 15:00 23:00 07:00 Intake Total 1414.5455 ml 560 ml 350 ml Output Total 1800 ml 1225 ml 50 ml Balance -385.4545 ml -665 ml 300 ml Exam Constitutional: other (moslty unresponsive ) Respiratory: clear to auscultation, other (on Vent ) Cardiovascular: nl pulses, regular rate and rhythm Gastrointestinal: non-tender, soft Musculoskeletal: nl extremities to inspection, other (no edema, clubbing or cyanosis ) Extremities: normal pulses, other (no edema, clubbing or cyanosis ) Neurological: unresponsive (mostly, open eyes but not tracking ) Results Result Diagram: 08/24/16 0800 08/24/16 0800 Results 24 hrs Laboratory Tests Test 08/24/16 04:40 08/24/16 05:00 08/24/16 08:00 Anion Gap 28 #H 11 # Basophils # 0.1 0.0 Basophils % 0.3 0.2 Blood Morphology Comment Blood Urea Nitrogen 84 #H 13 # Calcium Level 8.2 L 8.1 L Carbon Dioxide Level 24 30 Chloride Level 94 #L 100 Creatinine 7.72 #H 2.04 #H Eosinophils # 0.2 0.2 Eosinophils % 1.0 2.4 Glucose Level 226 #H 98 # Hematocrit 33.0 L 29.3 L Hemoglobin 11.2 L 9.8 L Lymphocytes # 1.9 1.3 Lymphocytes % 9.6 L 16.9 Magnesium Level 2.7 H 1.9 Mean Corpuscular Hemoglobin 31.4 31.4 Mean Corpuscular Hemoglobin Concent 33.9 33.2 Mean Corpuscular Volume 92.5 94.4 Mean Platelet Volume 8.7 # 10.0 Monocytes # 1.4 H 0.8 Monocytes % 6.8 9.8 Neutrophils # 16.7 H 5.5 Neutrophils % 82.3 H 70.7 Nucleated Red Blood Cells # 0.0 0.0 Nucleated Red Blood Cells % 0.0 0.0 Phosphorus Level 8.7 #H 1.9 #L Platelet Count 338 # 139 #L Potassium Level 4.5 3.4 L Prealbumin 38.6 H Red Blood Count 3.57 L 3.11 L Red Cell Distribution Width 15.5 H 16.1 H Sodium Level 141 138 White Blood Count 20.3 #H 7.8 # Arterial Blood HCO3 30.4 H Arterial Blood Base Excess 7.6 H Arterial Blood Oxygen Saturation 98.3 Kristopher Test ACCEPTAB Arterial Blood Gas Puncture Site Right Radial Arterial Blood Carboxyhemoglobin 0.4 Arterial Blood Date Drawn 08/24/2016 5:05:06 AM Arterial Blood Methemoglobin 0.6 Arterial Blood pCO2 (Temp correct) 35.5 Arterial Blood pH (Temp corrected) 7.550 H Arterial Blood pO2 (Temp corrected) 131.8 H Blood Gas A-a O2 Differential 40.4 H Blood Gas Actual Respiration Rate 16 Blood Gas Inspiratory Pressure 21.0 Blood Gas Low PEEP Setting 5.0 Blood Gas Modality VENT - AC Blood Gas Notified Time 08/24/2016 5:20:57 AM Blood Gas Notified Whom MG Blood Gas Respiration Rate 16.0 Blood Gas Specimen Source Blood arterial Blood Gas Temperature 37.0 Blood Gas Tidal Volume 400.0 FiO2 30.0 Oxyhemoglobin Percent 97.3 Total Hemoglobin 10.3 L Alanine Aminotransferase (ALT/SGPT) 22 Albumin 2.4 L Albumin/Globulin Ratio 0.77 Alkaline Phosphatase 114 Aspartate Amino Transf (AST/SGOT) 24 Direct Bilirubin 0.00 Globulin 3.10 Indirect Bilirubin 0.8 Total Bilirubin 0.8 Total Protein 5.5 L Medications Medications Current Medications Ondansetron HCl (Zofran Inj) 4 mg Q6H PRN IV NAUSEA AND/OR VOMITING; Start 08/21 at 15:00 Acetaminophen (Tylenol Supp) 650 mg Q4H PRN [place] PAIN LEVEL 1-3 OR FEVER; Start 08/21/16 at 15:00 Metoprolol Tartrate (Lopressor) 50 mg BID PO Last administered on 08/24/16 08: 47; Admin Dose 50 MG; Start 08/21/16 at 21:00 Enalaprilat (Vasotec Iv) 1.25 mg Q6H PRN IV ELEVATED SYSTOLIC BP Last administered on 08/23/16 12:21; Admin Dose 1.25 MG; Start 08/22/16 at 02:30 Famotidine (Pepcid Iv) 20 mg DAILY IV Last administered on 08/24/16 08:54; Admin Dose 20 MG; Start 08/22/16 at 10:30 Acetaminophen 650 mg 650 mg Q4H PRN NGT PAIN AND OR ELEVATED TEMP Last administered on 08/22/16 18:21; Admin Dose 650 MG; Start 08/22/16 at 17:30 Nicardipine HCl 25 mg/Dextrose 250 ml @ 50 mls/hr TITRATE IV ; Start 08/22/16 at 20:00 Dextrose 1,000 ml @ 50 mls/hr Q20H IV Last administered on 08/24/16 08:46; Admin Dose 50 MLS/HR; Start 08/23/16 at 08:00 Imipenem/ Cilastatin Sodium (Primaxin 500 Mg/ 100 ml (Pmx)) 100 ml @ 100 mls/ hr Q12 IVPB Last administered on 08/24/16 08:47; Admin Dose 100 MLS/HR; Start 08/23/16 at 13:00 Nifedipine (Procardia Xl) 30 mg DAILY PO Last administered on 08/24/16 08:47; Admin Dose 30 MG; Start 08/23/16 at 15:30 Collagenase 1 applic 1 applic DAILY TOP Last administered on 08/24/16 08:48; Admin Dose 1 APPLIC; Start 08/23/16 at 20:00 Potassium Chloride (KCl 40 MEQ/250 ML NS) 250 ml @ 62.5 mls/hr ONCE ONCE IVPB Last administered on 08/24/16 10:09; Admin Dose 62.5 MLS/HR; Start 08/24/16 at 09:30; Stop 08/24/16 at 13:29 JACQUES ACHARYA Aug 24, 2016 11:44
--- NOTE | 2016-08-24 13:52 | CONS ---
Date/Time of Note Date/Time of Note DATE: 08/24/16 TIME: 13:48 Consult Date/Type/Reason Admit Date/Time Aug 21, 2016 at 13:37 Initial Consult Date 08/21/16 Type of Consultation: Pulmonary/critical care Subjective Remains on vent, though remains minimally responsive. Objective Vital Signs Date Time Temp Pulse Resp B/P Pulse Ox O2 Delivery O2 Flow Rate FiO2 08/24/16 13:30 98 24 81/61 99 Mechanical Ventilator 08/24/16 12:00 99.1 08/24/16 11:20 30 Intake and Output 08/23/16 08/23/16 08/24/16 15:00 23:00 07:00 Intake Total 1414.5455 ml 560 ml 350 ml Output Total 1800 ml 1225 ml 50 ml Balance -385.4545 ml -665 ml 300 ml HEENT: Neck supple; no JVD; no LAD CVS: RRR, S1 and S2 CHEST: Clear ABD: Soft, NT, + BS EXT: No c/c/e Results/Medications Result Diagram: 08/24/16 0800 08/24/16 0800 Results 24 hrs Laboratory Tests Test 08/24/16 04:40 08/24/16 05:00 08/24/16 08:00 Anion Gap 28 #H 11 # Basophils # 0.1 0.0 Basophils % 0.3 0.2 Blood Morphology Comment Blood Urea Nitrogen 84 #H 13 # Calcium Level 8.2 L 8.1 L Carbon Dioxide Level 24 30 Chloride Level 94 #L 100 Creatinine 7.72 #H 2.04 #H Eosinophils # 0.2 0.2 Eosinophils % 1.0 2.4 Glucose Level 226 #H 98 # Hematocrit 33.0 L 29.3 L Hemoglobin 11.2 L 9.8 L Lymphocytes # 1.9 1.3 Lymphocytes % 9.6 L 16.9 Magnesium Level 2.7 H 1.9 Mean Corpuscular Hemoglobin 31.4 31.4 Mean Corpuscular Hemoglobin Concent 33.9 33.2 Mean Corpuscular Volume 92.5 94.4 Mean Platelet Volume 8.7 # 10.0 Monocytes # 1.4 H 0.8 Monocytes % 6.8 9.8 Neutrophils # 16.7 H 5.5 Neutrophils % 82.3 H 70.7 Nucleated Red Blood Cells # 0.0 0.0 Nucleated Red Blood Cells % 0.0 0.0 Phosphorus Level 8.7 #H 1.9 #L Platelet Count 338 # 139 #L Potassium Level 4.5 3.4 L Prealbumin 38.6 H Red Blood Count 3.57 L 3.11 L Red Cell Distribution Width 15.5 H 16.1 H Sodium Level 141 138 White Blood Count 20.3 #H 7.8 # Arterial Blood HCO3 30.4 H Arterial Blood Base Excess 7.6 H Arterial Blood Oxygen Saturation 98.3 Kristopher Test ACCEPTAB Arterial Blood Gas Puncture Site Right Radial Arterial Blood Carboxyhemoglobin 0.4 Arterial Blood Date Drawn 08/24/2016 5:05:06 AM Arterial Blood Methemoglobin 0.6 Arterial Blood pCO2 (Temp correct) 35.5 Arterial Blood pH (Temp corrected) 7.550 H Arterial Blood pO2 (Temp corrected) 131.8 H Blood Gas A-a O2 Differential 40.4 H Blood Gas Actual Respiration Rate 16 Blood Gas Inspiratory Pressure 21.0 Blood Gas Low PEEP Setting 5.0 Blood Gas Modality VENT - AC Blood Gas Notified Time 08/24/2016 5:20:57 AM Blood Gas Notified Whom MG Blood Gas Respiration Rate 16.0 Blood Gas Specimen Source Blood arterial Blood Gas Temperature 37.0 Blood Gas Tidal Volume 400.0 FiO2 30.0 Oxyhemoglobin Percent 97.3 Total Hemoglobin 10.3 L Alanine Aminotransferase (ALT/SGPT) 22 Albumin 2.4 L Albumin/Globulin Ratio 0.77 Alkaline Phosphatase 114 Aspartate Amino Transf (AST/SGOT) 24 Direct Bilirubin 0.00 Globulin 3.10 Indirect Bilirubin 0.8 Total Bilirubin 0.8 Total Protein 5.5 L Medications Current Medications Ondansetron HCl (Zofran Inj) 4 mg Q6H PRN IV NAUSEA AND/OR VOMITING; Start 08/21 at 15:00 Acetaminophen (Tylenol Supp) 650 mg Q4H PRN [place] PAIN LEVEL 1-3 OR FEVER; Start 08/21/16 at 15:00 Metoprolol Tartrate (Lopressor) 50 mg BID PO Last administered on 08/24/16 08: 47; Admin Dose 50 MG; Start 08/21/16 at 21:00 Enalaprilat (Vasotec Iv) 1.25 mg Q6H PRN IV ELEVATED SYSTOLIC BP Last administered on 08/23/16 12:21; Admin Dose 1.25 MG; Start 08/22/16 at 02:30 Famotidine (Pepcid Iv) 20 mg DAILY IV Last administered on 08/24/16 08:54; Admin Dose 20 MG; Start 08/22/16 at 10:30 Acetaminophen 650 mg 650 mg Q4H PRN NGT PAIN AND OR ELEVATED TEMP Last administered on 08/22/16 18:21; Admin Dose 650 MG; Start 08/22/16 at 17:30 Nicardipine HCl 25 mg/Dextrose 250 ml @ 50 mls/hr TITRATE IV ; Start 08/22/16 at 20:00 Dextrose 1,000 ml @ 50 mls/hr Q20H IV Last administered on 08/24/16 08:46; Admin Dose 50 MLS/HR; Start 08/23/16 at 08:00 Imipenem/ Cilastatin Sodium (Primaxin 500 Mg/ 100 ml (Pmx)) 100 ml @ 100 mls/ hr Q12 IVPB Last administered on 08/24/16 08:47; Admin Dose 100 MLS/HR; Start 08/23/16 at 13:00 Collagenase 1 applic 1 applic DAILY TOP Last administered on 08/24/16 08:48; Admin Dose 1 APPLIC; Start 08/23/16 at 20:00 Potassium Chloride (KCl 40 MEQ/250 ML NS) 250 ml @ 62.5 mls/hr ONCE ONCE IVPB Last administered on 08/24/16 10:09; Admin Dose 62.5 MLS/HR; Start 08/24/16 at 09:30; Stop 08/24/16 at 13:29 Assessment/Plan Additional Assessment/Plan IMPRESSION: 1. Respiratory Failure/Vent Dependence 2. Renal Failure 3. AMS-etiology not entirely clear. Remains minimally responsive off propofol gtt 4. HTN Crisis 5. Anemia RECS: 1. Will await EEG 2. Consider LP 3. Reduce VT to 350 ml 4. Replete K and Mg 5. Bioethics evaluation 35 min cc time LINDA HUNG MD Aug 24, 2016 13:52
[2016-08-25] VITALS (70 sets, daily range): BP systolic 93–204; BP diastolic 45–101; PULSE 48–130; RESP 7–26
[2016-08-25] MEDS ORDERED: METOPROLOL 25 MG TAB NGT ONE (00:30)
[2016-08-25 06:16] LABS: BASOPHILS % 0.2 % (0.0-2.0); EOSINOPHILS # 0.1 10^3/ul (0.0-0.5); EOSINOPHILS % 1.4 % (0.0-7.0); HEMATOCRIT 31.5 % (37.0-47.0); HEMOGLOBIN 10.5 g/dl (12.0-16.0); LYMPHOCYTES # 1.4 10^3/ul (0.8-2.9); MEAN CORPUSCULAR HEMOGLOBIN 31.8 pg (29.0-33.0); MEAN CORPUSCULAR HGB CONC 33.4 g/dl (32.0-37.0); MEAN CORPUSCULAR VOLUME 95.2 fl (82.0-101.0); MEAN PLATELET VOLUME 9.9 fl (7.4-10.4); MONOCYTE # 0.9 10^3/ul (0.3-0.9); MONOCYTES % 8.6 % (0.0-11.0); NEUTROPHIL # 7.6 10^3/ul (1.6-7.5); NEUTROPHILS % 75.8 % (39.0-77.0); PLATELET COUNT 196 10^3/UL (140-440); RED BLOOD COUNT 3.31 10^6/ul (4.20-5.40)
[2016-08-25 06:19] LABS: MAGNESIUM 1.6 mg/dl (1.7-2.5); PHOSPHORUS 2.7 mg/dl (2.5-4.9)
[2016-08-25 06:24] LABS: CONDITION 1; LH ANALYZER COMMENTS 1; SUSPECT 1
[2016-08-25 06:31] LABS: POTASSIUM 4.5 mmol/L (3.5-5.1)
[2016-08-25 06:33] LABS: CREATININE 2.68 mg/dl (0.44-1.00)
[2016-08-25 06:34] LABS: CALCIUM 8.3 mg/dl (8.4-10.2)
[2016-08-25 07:28] LABS: AADO2 Arterial 105.1 mmHg (7.0-24.0); Allen Test ACCEPTAB; Arterial Base Excess 5.8 mmol/L (-3.0-3); Arterial COHb 0.4 % (0.0-3.0); Arterial Fraction of Oxyhgb 94.2 % (93.0-99.0); Arterial HCO3 28.1 mmol/L (22.0-26.0); Arterial MetHb 0.1 % (0.0-1.5); Arterial Total Hemglobin 15.9 g/dl (12.0-18.0); MODE VENT - AC
[2016-08-25] MEDS: SEVELAMER 400 MG TAB PO SCH ×2 (07:35→11:18)
[2016-08-25] MEDS ORDERED: MAGNESIUM SULFATE 2 GM/50 ML 50 ML IVPB ONE (08:00)
--- NOTE | 2016-08-25 08:08 | PN ---
Date/Time of Note Date/Time of Note DATE: 08/25/16 TIME: 07:55 Assessment/Plan VTE Prophylaxis VTE Prophylaxis Intervention: SCD's Lines/Catheters IV Catheter Type (from Nrsg): Central Line Central line still needed: Yes (for IV access ) Urinary Cath still in place: Yes Reason Cath still needed: other (indicate) (UOP monitoring ) Assessment/Plan Assessment/Plan 71-year-old female with: 1. Acute and severe encephalopathy with Juan Coma Score of 3 on arrival to ED. Required intubation for airway protection. Off propofol x 3 days and still very minimally responsive MRI negative and CT head negative EEG reading pending and appreciate Neurology consult with Dr Powell, LP will be considered if EEG unrevealing ? sepsis as the patient was at first hypotensive on dialysis at the time of loss of consciousness. Urine cx with ESBL, on Imipenem now. 2. Acute respiratory failure related to severe encephalopathy on admission. On Vent, stable and Pulmonary following MRI brain negative, EEG pending Pulmonary following Neuro work up ongoing 3. Severe hypertension on admission. BP better but labile and targeting normotensive BP, now BP better and resuming BBlock Continue Metoprolol and Vasotec prn for now. 4. End-stage renal disease. HD today. Dr. Saldana following. 5. Hypokalemia. adjusting with HD, repleting mag today Appreciate assistance from Dr Nash. 6. Anemia of chronic disease, stable H/H so far. 7. ESBL Urinary tract infection, on Imipenem now and on contact precautions. Lactic acid wnl. Prophylaxis: Sequential compression devices to lower extremity for DVT prophylaxis and Pepcid for GI prophylaxis. DISPOSITION: ICU/Vent care, EEG reading pending and appreciate Neurology, Nephrology and Pulmonary follow up director of medical staff services and Palliative care consult as may need Bioethics as no relative identified so far. Subjective 24 Hr Interval Summary Free Text/Dictation Patient still minimally responsive only opening eyes Episodes of Sinus tach overnight and ? seizure activity Afebrile, EEG done but reading pending Exam/Review of Systems Vital Signs Vitals Vital Signs Date Time Temp Pulse Resp B/P Pulse Ox O2 Delivery O2 Flow Rate FiO2 08/25/16 05:20 99 19 100 40 08/25/16 04:30 127/77 08/25/16 04:00 98.9 Mechanical Ventilator Intake and Output 08/24/16 08/24/16 08/25/16 15:00 23:00 07:00 Intake Total 910.0 ml 580 ml 400 ml Output Total 20 ml 10 ml 8 ml Balance 890.0 ml 570 ml 392 ml Exam Constitutional: other (mostly non responsive ) Respiratory: clear to auscultation, normal air movement Cardiovascular: nl pulses, regular rate and rhythm Gastrointestinal: non-tender, soft Musculoskeletal: nl extremities to inspection Extremities: normal pulses, other (no edema, clubbing or cyanosis ) Neurological: other (opens eyes to voice but not tracking and ? seizure activity overnight ) Results Result Diagram: 08/25/1644408/25/16444 Results 24 hrs Laboratory Tests Test 08/24/16 08:00 08/25/16 04:45 Alanine Aminotransferase (ALT/SGPT) 22 Albumin 2.4 L Albumin/Globulin Ratio 0.77 Alkaline Phosphatase 114 Anion Gap 11 # 13 Aspartate Amino Transf (AST/SGOT) 24 Basophils # 0.0 0.0 Basophils % 0.2 0.2 Blood Morphology Comment Blood Urea Nitrogen 13 # 20 Calcium Level 8.1 L 8.3 L Carbon Dioxide Level 30 29 Chloride Level 100 94 L Creatinine 2.04 #H 2.68 H Direct Bilirubin 0.00 Eosinophils # 0.2 0.1 Eosinophils % 2.4 1.4 Globulin 3.10 Glucose Level 98 # 98 Hematocrit 29.3 L 31.5 L Hemoglobin 9.8 L 10.5 L Indirect Bilirubin 0.8 Lymphocytes # 1.3 1.4 Lymphocytes % 16.9 14.0 L Magnesium Level 1.9 1.6 L Mean Corpuscular Hemoglobin 31.4 31.8 Mean Corpuscular Hemoglobin Concent 33.2 33.4 Mean Corpuscular Volume 94.4 95.2 Mean Platelet Volume 10.0 9.9 Monocytes # 0.8 0.9 Monocytes % 9.8 8.6 Neutrophils # 5.5 7.6 H Neutrophils % 70.7 75.8 Nucleated Red Blood Cells # 0.0 0.0 Nucleated Red Blood Cells % 0.0 0.0 Phosphorus Level 1.9 #L 2.7 Platelet Count 139 #L 196 # Potassium Level 3.4 L 4.5 Red Blood Count 3.11 L 3.31 L Red Cell Distribution Width 16.1 H 16.0 H Sodium Level 138 131 L Total Bilirubin 0.8 Total Protein 5.5 L White Blood Count 7.8 # 10.0 # Medications Medications Current Medications Ondansetron HCl (Zofran Inj) 4 mg Q6H PRN IV NAUSEA AND/OR VOMITING; Start 08/21 at 15:00 Acetaminophen (Tylenol Supp) [address] PAIN LEVEL 1-3 OR FEVER; Start 08/21/16 at 15:00 Metoprolol Tartrate (Lopressor) 50 mg BID PO Last administered on 08/24/16 08: 47; Admin Dose 50 MG; Start 08/21/16 at 21:00 Enalaprilat (Vasotec Iv) 1.25 mg Q6H PRN IV ELEVATED SYSTOLIC BP Last administered on 08/23/16 12:21; Admin Dose 1.25 MG; Start 08/22/16 at 02:30 Famotidine (Pepcid Iv) 20 mg DAILY IV Last administered on 08/24/16 08:54; Admin Dose 20 MG; Start 08/22/16 at 10:30 Acetaminophen 650 mg 650 mg Q4H PRN NGT PAIN AND OR ELEVATED TEMP Last administered on 08/22/16 18:21; Admin Dose 650 MG; Start 08/22/16 at 17:30 Nicardipine HCl 25 mg/Dextrose 250 ml @ 50 mls/hr TITRATE IV ; Start 08/22/16 at 20:00 Imipenem/ Cilastatin Sodium (Primaxin 500 Mg/ 100 ml (Pmx)) 100 ml @ 100 mls/ hr Q12 IVPB Last administered on 08/24/16 20:50; Admin Dose 100 MLS/HR; Start 08/23/16 at 13:00 Collagenase (Santyl) 1 applic DAILY TOP Last administered on 08/24/16 08:48; Admin Dose 1 APPLIC; Start 08/23/16 at 20:00 JACQUES ACHARYA Aug 25, 2016 08:05
[2016-08-25] MEDS: IMIPENEM-CILAST 500MG IV (PMX) 100 ML IVPB SCH (08:37)
[2016-08-25] MEDS: COLLAGENASE 30 GM TUBE TOP SCH (08:38)
[2016-08-25] MEDS: FAMOTIDINE 20 MG INJ IV SCH (08:46)
[2016-08-25] MEDS: METOPROLOL 50 MG TAB PO SCH ×3 (08:53→18:30)
--- NOTE | 2016-08-25 09:47 | CONS ---
Date/Time of Note Date/Time of Note DATE: 08/25/16 TIME: 09:42 Assessment/Plan Assessment/Plan Additional Assessment/Plan Current ventilator settings are AC of 12, tidal volume 350, PEEP of 5, 40% FiO2. Assessment and recommendations; 1. Patient admitted with hypertensive encephalopathy leading to respiratory failure. 2. Possibly some element of aspiration pneumonia. Witnessed seizure. 4. End-stage renal disease on hemodialysis. 5. Altered mental status likely on account of subclinical and now overt clinical seizure activity. Continue current ventilator settings. Discontinue imipenem at it does reduce seizure threshold and switch the patient to cefepime. Add Keppra 1 g IV every 12 hours. Continue other supportive measures. EEG results are pending. Consultation Date/Type/Reason Admit Date/Time Aug 21, 2016 at 13:37 Initial Consult Date 08/21/16 Type of Consultation: Pulmonary/critical care 24 HR Interval Summary Free Text/Dictation Patient condition remains critical. The patient just had a witnessed seizure by the hemodialysis nurse at bedside which lasted about 30-45 seconds with generalized tonic-clonic movement. Next General examination; elderly lady, orally intubated. No further seizure activity noted. Patient opens eyes on name calling. Exam/Review of Systems Vital Signs Vitals Vital Signs Date Time Temp Pulse Resp B/P Pulse Ox O2 Delivery O2 Flow Rate FiO2 08/25/16 08:58 95 08/25/16 08:24 40 08/25/16 08:00 98.7 17 119/67 100 Mechanical Ventilator Intake and Output 08/24/16 08/24/16 08/25/16 15:00 23:00 07:00 Intake Total 910.0 ml 580 ml 400 ml Output Total 20 ml 10 ml 8 ml Balance 890.0 ml 570 ml 392 ml Exam H EENT examination; supple neck, no JVD. No lymphadenopathy. Pupils are midsize reactive to light. No neck masses. No thyromegaly. Chest examination; clear to auscultation. S1-S2 audible, no murmurs. Regular rhythm. Abdomen examination; no organomegaly. Bowel sounds audible. Extremity examination; no peripheral edema. There is an AV shunt in the left arm. INPATIENT SERVICES RN examination; patient opens eyes on name calling. Results Result Diagram: 08/25/16 0445 08/25/16 0445 Results 24 hrs Laboratory Tests Test 08/25/16 04:45 Anion Gap 13 Basophils # 0.0 Basophils % 0.2 Blood Morphology Comment Blood Urea Nitrogen 20 Calcium Level 8.3 L Carbon Dioxide Level 29 Chloride Level 94 L Creatinine 2.68 H Eosinophils # 0.1 Eosinophils % 1.4 Glucose Level 98 Hematocrit 31.5 L Hemoglobin 10.5 L Lymphocytes # 1.4 Lymphocytes % 14.0 L Magnesium Level 1.6 L Mean Corpuscular Hemoglobin 31.8 Mean Corpuscular Hemoglobin Concent 33.4 Mean Corpuscular Volume 95.2 Mean Platelet Volume 9.9 Monocytes # 0.9 Monocytes % 8.6 Neutrophils # 7.6 H Neutrophils % 75.8 Nucleated Red Blood Cells # 0.0 Nucleated Red Blood Cells % 0.0 Phosphorus Level 2.7 Platelet Count 196 # Potassium Level 4.5 Red Blood Count 3.31 L Red Cell Distribution Width 16.0 H Sodium Level 131 L White Blood Count 10.0 # Medications Medications Current Medications Ondansetron HCl (Zofran Inj) 4 mg Q6H PRN IV NAUSEA AND/OR VOMITING; Start 08/21 at 15:00 Acetaminophen (Tylenol Supp) 650 mg Q4H PRN [place] PAIN LEVEL 1-3 OR FEVER; Start 08/21/16 at 15:00 Metoprolol Tartrate (Lopressor) 50 mg BID PO Last administered on 08/24/16 08: 47; Admin Dose 50 MG; Start 08/21/16 at 21:00 Enalaprilat (Vasotec Iv) 1.25 mg Q6H PRN IV ELEVATED SYSTOLIC BP Last administered on 08/23/16 12:21; Admin Dose 1.25 MG; Start 08/22/16 at 02:30 Famotidine (Pepcid Iv) 20 mg DAILY IV Last administered on 08/25/16 08:46; Admin Dose 20 MG; Start 08/22/16 at 10:30 Acetaminophen 650 mg 650 mg Q4H PRN NGT PAIN AND OR ELEVATED TEMP Last administered on 08/22/16 18:21; Admin Dose 650 MG; Start 08/22/16 at 17:30 Nicardipine HCl 25 mg/Dextrose 250 ml @ 50 mls/hr TITRATE IV ; Start 08/22/16 at 20:00 Imipenem/ Cilastatin Sodium (Primaxin 500 Mg/ 100 ml (Pmx)) 100 ml @ 100 mls/ hr Q12 IVPB Last administered on 08/25/16 08:37; Admin Dose 100 MLS/HR; Start 08/23/16 at 13:00 Collagenase 1 applic 1 applic DAILY TOP Last administered on 08/25/16 08:38; Admin Dose 1 APPLIC; Start 08/23/16 at 20:00 Magnesium Sulfate (Magnesium Sulfate 2 Gm/50 ml) 50 ml @ 25 mls/hr ONCE ONCE IVPB Last administered on 08/25/16 08:46; Admin Dose 25 MLS/HR; Start at 08:00; Stop 08/25/16 at 09:59 GIOVANNI JOHNS Aug 25, 2016 09:47
--- NOTE | 2016-08-25 10:17 | PN ---
DATE: 08/25/2016 SUBJECTIVE: The patient remains critically ill, on full ventilatory support. The patient has had m inimal neurologic response, unable to follow commands. No other events noted. No hemoptysis, hemat emesis, hematochezia. OBJECTIVE: VITAL SIGNS: Blood pressure 127/77, respiration 18, pulse 106, temperature 98.9. HEENT: Head is normocephalic. NECK: Supple. HEART: Regular rate. LUNGS: Show diminished breath sounds at the base. ABDOMEN: Soft, nontender to palpation. No rebound or guarding. EXTREMITIES: Negative for clubbing, cyanosis, no edema. DERMATOLOGIC: No rashes. MUSCULOSKELETAL: No joint effusions. NEUROLOGIC: No change in exam. MEDICATIONS: The patient's medications have been reviewed. LABORATORY DATA: Sodium 131, potassium 4.5, chloride 94, BUN 20, creatinine 2.68, magnesium 1.6. W joanne count 10.0, hemoglobin 10.5, hematocrit 31.5, platelet count 196. Patient's cultures have been reviewed and negative to date. IMAGING STUDIES: Reviewed. No significant change. ASSESSMENT AND PLAN: 1. End-stage renal disease. The patient will have hemodialysis today for 3 hours, 3K bath, calcium 2.5, ultrafiltrate as tolerated. 2. Hyponatremia. Etiology secondary to hypotonic fluids. Will discontinue D5W and dialyze patient on 140 sodium bath. 3. Hypomagnesemia. We will replete with magnesium sulfate 2 grams IV x1. 4. Mineral bone disorder. Continue to monitor calcium, phosphorus levels. 5. Anemia of end-stage renal disease. Will continue to monitor hemoglobin and hematocrit levels. Continue Epogen with dialysis. 6. Ventilator dependent respiratory failure. Vent settings have been reviewed. ABG has been revie wed. Continue to monitor. 7. Acute encephalopathy with underlying dementia. Etiology is unclear, possibly toxic metabolic, a noxic. Questionable subclinical seizures. Continue follow up with neurology. 8. Hypertension, improved. Continue current blood pressure regimen. Continue ultrafiltration with dialysis. 9. Coronary artery disease. Continue medical management. 10. Possible sepsis, urinary tract infection. Continue current antibiotic regimen. Please note I spent over 40 minutes of critical care time with this patient, discussed the case with the nursing staff and Dr. Lu. Dictated By: LAN HANKS/SANDRA Conf#: [id number] [facility]#: [id number]
[2016-08-25] MEDS ORDERED: CEFEPIME 1GM/50 ML (PMX) 50 ML IVPB SCH (11:00)
[2016-08-25] MEDS ORDERED: LEVETIRACETAM IV 1,000 MG in SOD CHLORIDE 0.9% 100 ML IVPB SCH (12:00)
[2016-08-25] MEDS: SEVELAMER CARBONATE 0.8 GM PKT PO SCH ×2 (18:20→18:56)
--- NOTE | 2016-08-25 19:13 | CONS ---
Date/Time of Note Date/Time of Note DATE: 08/25/16 TIME: 19:08 Consult Date/Type/Reason Admit Date/Time Aug 21, 2016 at 13:37 Initial Consult Date 08/21/16 Type of Consultation: neurology Subjective Seizures, during dialysis, and over the night Objective Vital Signs Date Time Temp Pulse Resp B/P Pulse Ox O2 Delivery O2 Flow Rate FiO2 08/25/16 18:30 76 16 190/101 100 Mechanical Ventilator 08/25/16 17:25 40 08/25/16 16:30 98.1 Intake and Output 08/24/16 08/24/16 08/25/16 15:00 23:00 07:00 Intake Total 910.0 ml 580 ml 400 ml Output Total 20 ml 10 ml 10 ml Balance 890.0 ml 570 ml 390 ml Results/Medications Result Diagram: 08/25/16 0445 08/25/16 0445 Results 24 hrs Laboratory Tests Test 08/25/16 04:45 Anion Gap 13 Basophils # 0.0 Basophils % 0.2 Blood Morphology Comment Blood Urea Nitrogen 20 Calcium Level 8.3 L Carbon Dioxide Level 29 Chloride Level 94 L Creatinine 2.68 H Eosinophils # 0.1 Eosinophils % 1.4 Glucose Level 98 Hematocrit 31.5 L Hemoglobin 10.5 L Lymphocytes # 1.4 Lymphocytes % 14.0 L Magnesium Level 1.6 L Mean Corpuscular Hemoglobin 31.8 Mean Corpuscular Hemoglobin Concent 33.4 Mean Corpuscular Volume 95.2 Mean Platelet Volume 9.9 Monocytes # 0.9 Monocytes % 8.6 Neutrophils # 7.6 H Neutrophils % 75.8 Nucleated Red Blood Cells # 0.0 Nucleated Red Blood Cells % 0.0 Phosphorus Level 2.7 Platelet Count 196 # Potassium Level 4.5 Red Blood Count 3.31 L Red Cell Distribution Width 16.0 H Sodium Level 131 L White Blood Count 10.0 # Medications Current Medications Ondansetron HCl (Zofran Inj) 4 mg Q6H PRN IV NAUSEA AND/OR VOMITING; Start 08/21 at 15:00 Acetaminophen (Tylenol Supp) 650 mg Q4H PRN [place] PAIN LEVEL 1-3 OR FEVER; Start 08/21/16 at 15:00 Metoprolol Tartrate (Lopressor) 50 mg BID PO Last administered on 08/25/16t 18: 30; Admin Dose 50 MG; Start 08/21/16 at 21:00 Enalaprilat (Vasotec Iv) 1.25 mg Q6H PRN IV ELEVATED SYSTOLIC BP Last administered on 08/23/16 12:21; Admin Dose 1.25 MG; Start 08/22/16 at 02:30 Famotidine (Pepcid Iv) 20 mg DAILY IV Last administered on 08/25/16 08:46; Admin Dose 20 MG; Start 08/22/16 at 10:30 Acetaminophen 650 mg 650 mg Q4H PRN NGT PAIN AND OR ELEVATED TEMP Last administered on 08/22/16 18:21; Admin Dose 650 MG; Start 08/22/16 at 17:30 Nicardipine HCl/ Dextrose (Cardene Iv/D5W) 250 ml @ 50 mls/hr TITRATE IV ; Start 08/22/16 at 20:00 Collagenase 1 applic 1 applic DAILY TOP Last administered on 08/25/16 08:38; Admin Dose 1 APPLIC; Start 08/23/16 at 20:00 Levetiracetam 1000 mg/Sodium Chloride 110 ml @ 440 mls/hr AM IVPB ; Start 08/26 at 09:00 Piperacillin Sod/ Tazobactam Sod 50 ml @ 100 mls/hr Q8 IVPB ; Start 08/25/16 at 22:00 Phenytoin/Sodium Chloride (Dilantin/NS) 120 ml @ 240 mls/hr ONCE ONCE IV ; Start 08/25/16 at 19:30; Stop 08/25/16 at 19:59 Phenytoin (Dilantin) 100 mg Q8 IV ; Start 08/25/16 at 22:00 Assessment/Plan Chief Complaint/Hosp Course PHYSICAL EXAMINATION: GENERAL: The patient is not in acute distress, lying in bed, intubated orally. HEENT: Normocephalic, atraumatic head. NECK: Supple neck. No meningeal signs. LUNGS: Clear to auscultation bilaterally. CARDIAC: Normal cardiac rhythm and sounds. ABDOMEN: Soft. Present bowel sounds. EXTREMITIES: No cyanosis, clubbing or edema. NEUROLOGIC: Patient is lethargic but opens eyes to voice. Does not follow commands. No eye deviation . Blinks to visual threat. Pupils reactive from 3 to 2 mm bilaterally. Extraocular movements seem to be present with oculocephalic maneuver. Corneal reflexes present bilaterally as well as gag. Motor strength examination shows symmetrical, trace withdrawal of extremities to noxious stimuli. Flaccid tone. Deep tendon reflexes 2+ upper extremities, was not able to get in lower extremities. Upgoing toes bilaterally. IMPRESSION: Acute encephalopathy. Seizures. Started on Keppra, I'll add dilantin Respiratory failure, urinary tract infection, end-stage renal disease, strokes were ruled out by MRI. Problems: DICK WATERS MD Aug 25, 2016 19:13
[2016-08-25] MEDS ORDERED: PHENYTOIN 1,000 MG in SOD CHLORIDE 0.9% 100 ML IV ONE ×2 (19:30→21:00)
[2016-08-25] MEDS ORDERED: AMLODIPINE 5 MG TAB GTB SCH (21:00)
[2016-08-25] MEDS: PIPER-TAZO 2.25 GM (PMX) 50 ML IVPB SCH (21:29)
--- NOTE | 2016-08-25 21:37 | SP ---
DATE OF PROCEDURE: 08/24/2016 INDICATION: A 71-year-old with end-stage renal disease, respiratory failure, severe encephalopathy. DESCRIPTION OF PROCEDURE: EEG was recorded digitally. [id number] and scalp -to-ear montages were recorded and reviewed. All impedances were measured and recorded. Cap electrodes were placed in accordance with International 10-20 system of electrode placement. Generalized spike activity with frequency 2 to 3 cycles per second was seen at times throughout the recording. At times, this activity seemed to be predominantly involving bilateral frontal area. Not consistently present, but still most of the recording, but at times stick out. This activity intermixes with slower background 2 to 4 cycles per second, up to 6 cycles per second. IMPRESSION: Abnormal study secondary to presence of either generalized or at times predominantly bifrontal spike waves. With generalized spike waves, the activity could reflect generalized seizure. With bifrontal waves are likely not seizures, but clearly epileptogenic activity. Background slowing reflects encephalopathy. Continue the epileptic coverage. The patient was not on any antiepileptic medicine at the time of EEG, but later was put on Keppra. Dictated By: DICK MATHEWS/SANDRA Conf#: [id number] DID#: [id number] CC: JACQUES ACHARYA MD;*EndCC* MTDD
[2016-08-25] MEDS ORDERED: PHENYTOIN 100 MG INJ IV SCH (22:00)
[2016-08-25] MEDS ORDERED: SOD CHLORIDE 0.9% 1,000 ML IV ONE (22:30)
[2016-08-26] VITALS (70 sets, daily range): BP systolic 64–158; BP diastolic 42–132; PULSE 53–87; RESP 14–20
[2016-08-26] MEDS: PIPER-TAZO 2.25 GM (PMX) 50 ML IVPB SCH ×3 (05:49→21:42)
[2016-08-26] MEDS: PHENYTOIN 100 MG INJ IV SCH ×3 (05:50→21:37)
[2016-08-26 07:10] LABS: BASOPHILS % 0.5 % (0.0-2.0); EOSINOPHILS # 0.1 10^3/ul (0.0-0.5); EOSINOPHILS % 1.1 % (0.0-7.0); HEMATOCRIT 29.9 % (37.0-47.0); LYMPHOCYTES # 1.1 10^3/ul (0.8-2.9); LYMPHOCYTES % 15.3 % (15.0-51.0); MEAN CORPUSCULAR HEMOGLOBIN 31.9 pg (29.0-33.0); MEAN CORPUSCULAR HGB CONC 33.6 g/dl (32.0-37.0); MEAN CORPUSCULAR VOLUME 95.2 fl (82.0-101.0); MEAN PLATELET VOLUME 10.1 fl (7.4-10.4); MONOCYTE # 0.8 10^3/ul (0.3-0.9); MONOCYTES % 11.4 % (0.0-11.0); NEUTROPHIL # 4.9 10^3/ul (1.6-7.5); NEUTROPHILS % 71.7 % (39.0-77.0); PLATELET COUNT 200 10^3/UL (140-440); RED BLOOD COUNT 3.14 10^6/ul (4.20-5.40); RED CELL DISTRIBUTION WIDTH 16.4 % (11.5-14.5); UNCORRECTED WBC 6.9 10^3/ul (4.8-10.8); WHITE BLOOD COUNT 6.9 10^3/ul (4.8-10.8)
[2016-08-26 07:15] LABS: POTASSIUM 3.9 mmol/L (3.5-5.1)
[2016-08-26 07:18] LABS: CREATININE 2.8 mg/dl (0.44-1.00)
[2016-08-26 07:19] LABS: CALCIUM 8.2 mg/dl (8.4-10.2); MAGNESIUM 2.5 mg/dl (1.7-2.5); PHOSPHORUS 2.9 mg/dl (2.5-4.9)
[2016-08-26 07:27] LABS: CONDITION 1; LH ANALYZER COMMENTS 1
[2016-08-26] MEDS: METOPROLOL 50 MG TAB PO SCH (09:18)
[2016-08-26] MEDS: COLLAGENASE 30 GM TUBE TOP SCH (09:19)
[2016-08-26] MEDS: FAMOTIDINE 20 MG INJ IV SCH (09:29)
[2016-08-26] MEDS: LEVETIRACETAM IV 1,000 MG in SOD CHLORIDE 0.9% 100 ML IVPB SCH (09:30)
--- NOTE | 2016-08-26 10:15 | CONS ---
Date/Time of Note Date/Time of Note DATE: 08/26/16 TIME: 10:09 Assessment/Plan Assessment/Plan Additional Assessment/Plan Current ventilator settings; assist control of 14, tidal volume 350, PEEP of 5, 30% FiO2. Assessment and recommendation; 1. Patient admitted with respiratory failure due to hypertensive encephalopathy. 2. Generalized seizure activity now suppressed on combination Keppra and Dilantin. 3. End-stage renal disease on hemodialysis. 4. Possibly some element of aspiration pneumonia. 5. Severe hypertension. Continue current treatment for now the patient was briefly assessed at bedside on CPAP mode, currently has poor minute ventilation that would preclude weaning from mechanical ventilation at this point, however, based upon the significant mental status recovery over the last 24 hours the prognosis appears quite good and patient will be given another trial in 24 hours or less for assessment of weaning from ventilator. Meanwhile continue current treatment. Consultation Date/Type/Reason Admit Date/Time Aug 21, 2016 at 13:37 Initial Consult Date 08/21/16 Type of Consultation: Pulmonary/critical care 24 HR Interval Summary Free Text/Dictation Patient condition is improving now. No gross seizure activity noted. Patient is waking up gradually and opening eyes on name calling. But does not follow any other commands. Has remained hemodynamically stable. General examination; elderly lady, on ventilator via tracheostomy currently in no distress. Exam/Review of Systems Vital Signs Vitals Vital Signs Date Time Temp Pulse Resp B/P Pulse Ox O2 Delivery O2 Flow Rate FiO2 08/26/16 08:24 40 08/26/16 08:00 98.0 70 15 98/55 100 Mechanical Ventilator Intake and Output 08/25/16 08/25/16 08/26/16 15:00 23:00 07:00 Intake Total 910 ml 690 ml 560 ml Output Total 1582 ml 140 ml 110 ml Balance -672 ml 550 ml 450 ml Exam H EENT examination; supple neck, no JVD. No lymphadenopathy. Patient has bilateral cataracts. No thyromegaly. Or intubated. Supple neck. No thyromegaly. Chest examination; diminished but clear breath sounds. S1-S2 audible, no murmurs. Regular rhythm. Abdomen examination; soft, nontender no organomegaly, bowel sounds audible. Extremity examination; no peripheral edema. MAIL SERVICE COORDINATOR examination; patient opening eyes on name calling now. Results Result Diagram: 08/26/16 0430 08/26/16 0430 Results 24 hrs Laboratory Tests Test 08/26/16 04:30 Anion Gap 13 Basophils # 0.0 Basophils % 0.5 Blood Morphology Comment Blood Urea Nitrogen 24 H Calcium Level 8.2 L Carbon Dioxide Level 27 Chloride Level 100 Creatinine 2.80 H Eosinophils # 0.1 Eosinophils % 1.1 Glucose Level 84 Hematocrit 29.9 L Hemoglobin 10.0 L Lymphocytes # 1.1 Lymphocytes % 15.3 Magnesium Level 2.5 Mean Corpuscular Hemoglobin 31.9 Mean Corpuscular Hemoglobin Concent 33.6 Mean Corpuscular Volume 95.2 Mean Platelet Volume 10.1 Monocytes # 0.8 Monocytes % 11.4 H Neutrophils # 4.9 Neutrophils % 71.7 Nucleated Red Blood Cells # 0.0 Nucleated Red Blood Cells % 0.0 Phenytoin (Dilantin) Level 12.7 Phosphorus Level 2.9 Platelet Count 200 Potassium Level 3.9 Red Blood Count 3.14 L Red Cell Distribution Width 16.4 H Sodium Level 136 White Blood Count 6.9 # Medications Medications Current Medications Ondansetron HCl (Zofran Inj) 4 mg Q6H PRN IV NAUSEA AND/OR VOMITING; Start 08/21 at 15:00 Acetaminophen (Tylenol Supp) 650 mg Q4H PRN [place] PAIN LEVEL 1-3 OR FEVER; Start 08/21/16 at 15:00 Metoprolol Tartrate (Lopressor) 50 mg BID PO Last administered on 08/26/16 09: 18; Admin Dose 50 MG; Start 08/21/16 at 21:00 Enalaprilat (Vasotec Iv) 1.25 mg Q6H PRN IV ELEVATED SYSTOLIC BP Last administered on 08/23/16 12:21; Admin Dose 1.25 MG; Start 08/22/16 at 02:30 Famotidine (Pepcid Iv) 20 mg DAILY IV Last administered on 08/26/16 09:29; Admin Dose 20 MG; Start 08/22/16 at 10:30 Acetaminophen 650 mg 650 mg Q4H PRN NGT PAIN AND OR ELEVATED TEMP Last administered on 08/22/16 18:21; Admin Dose 650 MG; Start 08/22/16 at 17:30 Nicardipine HCl/ Dextrose (Cardene Iv/D5W) 250 ml @ 50 mls/hr TITRATE IV ; Start 08/22/16 at 20:00 Collagenase 1 applic 1 applic DAILY TOP Last administered on 08/26/16 09:19; Admin Dose 1 APPLIC; Start 08/23/16 at 20:00 Levetiracetam 1000 mg/Sodium Chloride 110 ml @ 440 mls/hr AM IVPB Last administered on 08/26/16 09:30; Admin Dose 440 MLS/HR; Start 08/26/16 at 09:00 Piperacillin Sod/ Tazobactam Sod (Zosyn 2.25gm/ 50ml (Pmx)) 50 ml @ 100 mls/hr Q8 IVPB Last administered on 08/26/16 05:49; Admin Dose 100 MLS/HR; Start at 22:00 Hydralazine HCl (Apresoline) 25 mg Q6 PRN PO SBP above 160; Start 08/25/16 at 20:00 Phenytoin (Dilantin) 100 mg Q8 IV Last administered on 08/26/16 05:50; Admin Dose 100 MG; Start 08/26/16 at 06:00 GIOVANNI JOHNS Aug 26, 2016 10:15
--- NOTE | 2016-08-26 10:54 | PN ---
DATE: 08/26/2016 08/26/2016 SUBJECTIVE: The patient yesterday had hemodialysis, developed a seizure during the cours e of dialysis. Dialysis was terminated. No other events noted. The patient still noted to have a ____blood pressure, remains on full ventilatory support, was admitted on minimal neurological respo nse. No other events noted. OBJECTIVE: VITAL SIGNS: Blood pressure 98/55, respirations 15, pulse 70, temperature 98.0. HEENT: Head is normocephalic. NECK: Supple. HEART: Regular rate. LUNGS: Show diminished breath sounds at the base. ABDOMEN: Soft, nontender to palpation without rebound or guarding. EXTREMITIES: Negative for clubbing, cyanosis, no edema. DERMATOLOGIC: No rashes. MUSCULOSKELETAL: No joint effusions. NEUROLOGIC: No change in exam. MEDICATIONS: Reviewed. LABORATORY DATA: Showed sodium 136, potassium 3.9, chloride 100, BUN 24, creatinine 2.80. White co unt 6.9, hemoglobin 10.0, hematocrit 29.9, platelet count is 200. The patient's Dilantin level was noted to be 12.7. ASSESSMENT AND PLAN: 1. End-stage renal disease. The patient had hemodialysis on 1 hour yesterday was terminated due to seizure. Plan for dialysis today for 3 hours, 2K bath, calcium 2.5. 2. Hyponatremia, resolved. 3. Hypomagnesemia, improved. Continue to monitor. 4. Mineral bone disorder. Continue to monitor calcium and phosphorus levels. 5. Anemia of end-stage renal disease. Continue to monitor H and H levels. Continue Epogen. 6. Ventilator dependent respiratory failure. Vent settings have been reviewed. ABG has been revie wed. Continue to monitor. 7. Acute encephalopathy with underlying dementia. Etiology is unclear. Neurology evaluated the pa tient and possible ongoing subclinical seizures. We will follow up with further recommendations. 8. Hypertension, improved. Continue current blood pressure regimen. 9. Coronary artery disease. Continue medical management. 10. Possible sepsis, urinary tract infection. Continue current antibiotic regimen. Dictated By: LAN HANKS/SANDRA Conf#: [id number] DID#: [id number]
[2016-08-26] MEDS: SEVELAMER CARBONATE 0.8 GM PKT PO SCH ×2 (11:38→17:31)
--- NOTE | 2016-08-26 11:40 | PN ---
Date/Time of Note Date/Time of Note DATE: 08/26/16 TIME: 11:31 Assessment/Plan VTE Prophylaxis VTE Prophylaxis Intervention: SCD's Lines/Catheters IV Catheter Type (from Nrsg): Central Line Central line still needed: Yes (for IV access ) Urinary Cath still in place: Yes Reason Cath still needed: other (indicate) (monitor UOP ) Assessment/Plan Assessment/Plan 71-year-old female with: 1. Acute and severe encephalopathy with [place] Coma Score of 3 on arrival to ED. Required intubation for airway protection. Off propofol x 3 days and still very minimally responsive MRI negative and CT head negative but EEG c/w seizures On Keppra now and Neurology following ? sepsis as the patient was at first hypotensive on dialysis at the time of loss of consciousness. Urine cx with ESBL, on Imipenem. 2. Acute respiratory failure related to severe encephalopathy on admission. On Vent, stable and Pulmonary following MRI brain negative, EEG c/w seizures Pulmonary following Neuro work up ongoing 3. Severe hypertension on admission. BP better but labile and targeting normotensive BP, now BP better and resuming BBlock at low dose Continue Metoprolol and Vasotec prn for now. 4. End-stage renal disease. HD today. Dr. Saldana following. 5. Hypokalemia. adjusting with HD, repleting mag today Appreciate assistance from Dr Nash. 6. Anemia of chronic disease, stable H/H so far. 7. ESBL Urinary tract infection, on Imipenem now and on contact precautions. Lactic acid wnl. Prophylaxis: Sequential compression devices to lower extremity for DVT prophylaxis and Pepcid for GI prophylaxis. DISPOSITION: ICU/Vent care, appreciate Neurology, Nephrology and Pulmonary follow up nutrition services associate and Palliative care consult as may need Bioethics as no relative identified so far. Subjective 24 Hr Interval Summary Free Text/Dictation Patient's EEG consistent with seizures and also witnessed yesterday during HD Patient started on Keppra Still severely encephalopathy Exam/Review of Systems Vital Signs Vitals Vital Signs Date Time Temp Pulse Resp B/P Pulse Ox O2 Delivery O2 Flow Rate FiO2 08/26/16 10:45 66 16 121/51 100 Mechanical Ventilator 08/26/16 08:24 40 08/26/16 08:00 98.0 Intake and Output 08/25/16 08/25/16 08/26/16 15:00 23:00 07:00 Intake Total 910 ml 690 ml 560 ml Output Total 1582 ml 140 ml 110 ml Balance -672 ml 550 ml 450 ml Exam Constitutional: other (minimally responsive ) Respiratory: clear to auscultation, other (on vent ) Cardiovascular: nl pulses, regular rate and rhythm Gastrointestinal: non-tender, soft Musculoskeletal: nl extremities to inspection Extremities: normal pulses, other (no edema, clubbing or cyanosis ) Neurological: lethargic, other (mostly unresponsive ) Results Result Diagram: 08/26/1642908/26/16429 Results 24 hrs Laboratory Tests Test 08/26/16 04:30 Anion Gap 13 Basophils # 0.0 Basophils % 0.5 Blood Morphology Comment Blood Urea Nitrogen 24 H Calcium Level 8.2 L Carbon Dioxide Level 27 Chloride Level 100 Creatinine 2.80 H Eosinophils # 0.1 Eosinophils % 1.1 Glucose Level 84 Hematocrit 29.9 L Hemoglobin 10.0 L Lymphocytes # 1.1 Lymphocytes % 15.3 Magnesium Level 2.5 Mean Corpuscular Hemoglobin 31.9 Mean Corpuscular Hemoglobin Concent 33.6 Mean Corpuscular Volume 95.2 Mean Platelet Volume 10.1 Monocytes # 0.8 Monocytes % 11.4 H Neutrophils # 4.9 Neutrophils % 71.7 Nucleated Red Blood Cells # 0.0 Nucleated Red Blood Cells % 0.0 Phenytoin (Dilantin) Level 12.7 Phosphorus Level 2.9 Platelet Count 200 Potassium Level 3.9 Red Blood Count 3.14 L Red Cell Distribution Width 16.4 H Sodium Level 136 White Blood Count 6.9 # Medications Medications Current Medications Ondansetron HCl (Zofran Inj) 4 mg Q6H PRN IV NAUSEA AND/OR VOMITING; Start 08/21 at 15:00 Acetaminophen (Tylenol Supp) 650 mg Q4H PRN [place] PAIN LEVEL 1-3 OR FEVER; Start 08/21/16 at 15:00 Metoprolol Tartrate (Lopressor) 50 mg BID PO Last administered on 08/26/16 09: 18; Admin Dose 50 MG; Start 08/21/16 at 21:00 Enalaprilat (Vasotec Iv) 1.25 mg Q6H PRN IV ELEVATED SYSTOLIC BP Last administered on 08/23/16 12:21; Admin Dose 1.25 MG; Start 08/22/16 at 02:30 Famotidine (Pepcid Iv) 20 mg DAILY IV Last administered on 08/26/16 09:29; Admin Dose 20 MG; Start 08/22/16 at 10:30 Acetaminophen 650 mg 650 mg Q4H PRN NGT PAIN AND OR ELEVATED TEMP Last administered on 08/22/16 18:21; Admin Dose 650 MG; Start 08/22/16 at 17:30 Nicardipine HCl/ Dextrose (Cardene Iv/D5W) 250 ml @ 50 mls/hr TITRATE IV ; Start 08/22/16 at 20:00 Collagenase 1 applic 1 applic DAILY TOP Last administered on 08/26/16 09:19; Admin Dose 1 APPLIC; Start 08/23/16 at 20:00 Levetiracetam 1000 mg/Sodium Chloride 110 ml @ 440 mls/hr AM IVPB Last administered on 08/26/16 09:30; Admin Dose 440 MLS/HR; Start 08/26/16 at 09:00 Piperacillin Sod/ Tazobactam Sod (Zosyn 2.25gm/ 50ml (Pmx)) 50 ml @ 100 mls/hr Q8 IVPB Last administered on 08/26/16 05:49; Admin Dose 100 MLS/HR; Start at 22:00 Hydralazine HCl (Apresoline) 25 mg Q6 PRN PO SBP above 160; Start 08/25/16 at 20:00 Phenytoin (Dilantin) 100 mg Q8 IV Last administered on 08/26/16 05:50; Admin Dose 100 MG; Start 08/26/16 at 06:00 JACQUES ACHARYA Aug 26, 2016 11:40
--- NOTE | 2016-08-26 13:08 | CONS ---
DATE OF ADMISSION: 08/21/2016 DATE OF CONSULTATION: 08/26/2016 REFERRING PHYSICIAN: Dr. Jose Roberto Lu. HISTORY OF PRESENT ILLNESS: This is a very ill 71-year-old female who is in the intensive care unit at [facility], who essentially was brought in from dialysis center, who was found to be encephalopathic, what appeared to be a witnessed generalized seizure. The patient was in res piratory distress when she presented to the emergency room, was intubated at that time and was found to be extremely hypertensive, required IV Cardene and labetalol. CT scan was done, showed no samir r intracranial hemorrhage, no significant mass effect. Chest x-ray shows no evidence of active card iopulmonary disease. She had profound fluid and electrolyte abnormalities which have been addressed since that time. That admission was 08/21/2016. Patient has been in the intensive care unit since that time, and still intubated. In the emergency room she was found to be a [place] coma score 3. During her stay in the intensive care unit she has been seen by neurology. EEG shows evidence of u nderlying seizure activity. She is being treated aggressively for that. Multiple consultants are i nvolved with her care at this time, including neurology, pulmonary medicine, and renal. Patient is being dialyzed. She remains off sedation and still very encephalopathic, unresponsive to any verbal or tactile stimulation per my review of medical records. It is known that patient does not have a next of kin, and I am asked to see and evaluate patient and consider patient to be referred to [facility]. MEDICATIONS: Please refer to reconciliation sheets. ALLERGIES: NO KNOWN DRUG ALLERGIES. MAJOR MEDICAL PROBLEMS: Please refer to history of present illness as well as extensive note done b y Dr. Jose Roberto Lu on admission, but it is known that patient also has a history once again of end -stage renal disease, on hemodialysis, anemia of chronic disease, debility. SOCIAL HISTORY: Unknown. REVIEW OF SYSTEMS: Unknown. Cannot be obtained. FAMILY HISTORY: Cannot be obtained. The patient is intubated. There are no significant others to speak on behalf of the patient or give a complete past medical history. PHYSICAL EXAMINATION: GENERAL: A very ill-appearing, cachectic, elderly female, unresponsive to any verbal or tactile sti mulation. VITAL SIGNS: Blood pressure 121/51, pulse is 66 and regular, respirations of 16, 100% saturation on 40% FIO2. HEENT: She is normocephalic and atraumatic. Anicteric, acyanotic. CHEST: Shows distant breath sounds throughout both lung singletary. She has inspiratory and expiratory crackles on examination, left greater than right. COR: S1, S2, without S3, S4, murmur, gallop, rub. Normal rate, normal rhythm. ABDOMEN: Abdomen is grossly benign. NEUROLOGIC: Of sedation, she does not respond to any verbal or tactile stimulation. She does not o pen her eyes spontaneously. There is no purposeful motor activity. LABORATORIES: I have reviewed laboratory and test results. White blood cell count is 6.9, hemoglob in of 10.0, hematocrit of 29.9, MCV of 95.2, platelet count 200,000. Chemistry: Serum sodium 136, potassium of 3.9, chloride 100, bicarbonate 27, BUN 24, creatinine 2.84, blood sugar 84. ASSESSMENT AND PLAN: This is a very debilitated elderly female in the intensive care unit at [facility], critically ill, septic, neurologically impaired, to be determined as far as the etiology and the extent of her underlying neurological condition preadmission, who presented to the emergency room, [place] coma score 3, intubated at that time. Other medical problems: 1. End-stage renal disease, on hemodialysis at this time. 2. Chronic anemia. 3. Fluid and electrolyte abnormalities. 4. Poor prognosis for survivability during this hospitalization. At this point, we have no representatives to speak on behalf of the patient. It is known that she i s within [facility], and that may be beneficial, as my past experience has been posi tive in speaking to their medical safety director and clinical staff. My suggestion at this point is to re nimo patient to bioethics. In the meantime, patient will have to remain a FULL CODE. Case management has pursued looking for other family members speaking for patient, and they have uns uccessful. At this time the patient is not hemodynamically compromised, so I do not think we need t o get a stat consultation, but if she does I will request that. In the meantime we will push ahead with current care and trying to organize the bioethics consultation with members of the [facility] representatives. Dictated By: TONE PÉREZ MD, LP/SANDRA Conf#: [id number] [facility]#: [id number]
--- NOTE | 2016-08-26 13:43 | EN ---
Date/Time of Note Date/Time of Note DATE: 08/26/16 TIME: 13:42 ER Progress Note I was called to the ICU because the patient had difficult access. They needed a peripheral IV. General: No significant distress, intubated, obese Head: Normocephalic, atraumatic. Eyes: Pupils equally reactive, EOM intact ENT: Dry mucous membranes Neck: Supple, no lymphadenopathy Respiratory: Mechanical lungs Cardiovascular: RRR, no murmurs, rubs, or gallops Abdominal: Soft, non-tender, non-distended, no peritoneal signs : Deferred MSK: Limited movement of all 4 extremities, no bony abnormalities, anasarca Neurologic: Limited exam, and encephalopathic, limited movement of all 4 extremities Skin: No rash, no significant breakdown Psych: Unable to assess Peripheral IV Insertion: Indication: Difficult IV access Location: Left deep brachial Attempts: 1 Angiocath-type: 18-gauge Sterile procedure was used to insert a peripheral IV. Indication, location and Angiocath-type are noted above. Ultrasound guidance was used to assist in the insertion of the Angiocath. Return of dark nonpulsatile blood was obtained, normal saline flushed through the Angiocath which was then secured to the skin. The patient tolerated the procedure well without complications. Emergency Bedside Ultrasound: Indication: Peripheral IV insertion Probe Type: Linear Findings: Dynamic ultrasound utilized with compression technique with both linear and horizontal views. The images were not saved because the ultrasound did not have printing capability. The patient tolerated the procedure well and there were no complications. Further management by primary team. ART BOWIE MD Aug 26, 2016 13:43
[2016-08-26] MEDS: METOPROLOL 25 MG TAB PO SCH (21:36)
[2016-08-27] VITALS (48 sets, daily range): BP systolic 101–177; BP diastolic 53–90; PULSE 46–98; RESP 12–23
[2016-08-27] MEDS: PHENYTOIN 100 MG INJ IV SCH ×3 (06:08→21:00)
[2016-08-27] MEDS: PIPER-TAZO 2.25 GM (PMX) 50 ML IVPB SCH (06:08)
[2016-08-27 06:31] LABS: MAGNESIUM 2.4 mg/dl (1.7-2.5); PHOSPHORUS 2.5 mg/dl (2.5-4.9)
[2016-08-27 06:32] LABS: CREATININE 2.32 mg/dl (0.44-1.00)
[2016-08-27 06:33] LABS: CALCIUM 8.3 mg/dl (8.4-10.2)
[2016-08-27 06:45] LABS: BASOPHILS % 0.7 % (0.0-2.0); EOSINOPHILS # 0.2 10^3/ul (0.0-0.5); EOSINOPHILS % 2.7 % (0.0-7.0); HEMATOCRIT 34.2 % (37.0-47.0); HEMOGLOBIN 11.4 g/dl (12.0-16.0); LYMPHOCYTES # 1.2 10^3/ul (0.8-2.9); MEAN CORPUSCULAR HEMOGLOBIN 31.7 pg (29.0-33.0); MEAN CORPUSCULAR HGB CONC 33.4 g/dl (32.0-37.0); MEAN CORPUSCULAR VOLUME 94.9 fl (82.0-101.0); MEAN PLATELET VOLUME 9.9 fl (7.4-10.4); MONOCYTES % 15.4 % (0.0-11.0); NEUTROPHIL # 3.9 10^3/ul (1.6-7.5); NEUTROPHILS % 62.2 % (39.0-77.0); PLATELET COUNT 180 10^3/UL (140-440); RED BLOOD COUNT 3.61 10^6/ul (4.20-5.40); RED CELL DISTRIBUTION WIDTH 16.2 % (11.5-14.5); UNCORRECTED WBC 6.3 10^3/ul (4.8-10.8); WHITE BLOOD COUNT 6.3 10^3/ul (4.8-10.8)
[2016-08-27 07:06] LABS: CONDITION 1; LH ANALYZER COMMENTS 1
--- NOTE | 2016-08-27 08:19 | CONS ---
Date/Time of Note Date/Time of Note DATE: 08/27/16 TIME: 08:15 Assessment/Plan Assessment/Plan Additional Assessment/Plan Ventilator settings; assist control of 12, tidal volume 350, PEEP of 5, 30% FiO2. Assessment recommendations; 1. Patient admitted with hypertensive encephalopathy leading to respiratory failure. 2. End-stage renal disease on hemodialysis. 3. Seizures. 4. History of severe hypertension. 5. Possibly some element of aspiration pneumonia. Continue current treatment for now. The patient has been switched over to CPAP mode with pressure support of 10 and currently has significantly improved parameters. We will obtain an ABG in about half an hour. Extubation is not recommended due to continued poor mental status. Current supportive measures. Discontinue antibiotics. Consultation Date/Type/Reason Admit Date/Time Aug 21, 2016 at 13:37 Initial Consult Date 08/21/16 Type of Consultation: Pulmonary/critical care 24 HR Interval Summary Free Text/Dictation Patient condition remains critical. Still requiring full ventilator support. Patient however has remained hemodynamically stable. General examination; elderly lady, or intubated. Not much arousable. Currently in no distress. Exam/Review of Systems Vital Signs Vitals Vital Signs Date Time Temp Pulse Resp B/P Pulse Ox O2 Delivery O2 Flow Rate FiO2 08/27/16 06:00 77 15 158/80 100 Mechanical Ventilator 08/27/16 05:10 40 08/27/16 04:00 98.8 Intake and Output 08/26/16 08/26/16 08/27/16 15:00 23:00 07:00 Intake Total 320 ml 790 ml 290 ml Output Total 85 ml 2565 ml 70 ml Balance 235 ml -1775 ml 220 ml Exam H EENT examination; supple neck, no JVD. No lymphadenopathy. No thyromegaly. Patient has multiple carious teeth. He was a midsize and reactive to light bilaterally. No neck bruits. Chest examination; diminished but clear breath sounds bilaterally. No added sounds. S1-S2 audible, no murmurs. Regular rhythm. Abdomen examination; soft, nondistended. Bowel sounds audible. Extremity examination; no peripheral edema. RADIATION / CHEMISTRY TECHNICIAN examination; patient remains unresponsive. Minimally opens eyes on deep sternal rubbing. Results Result Diagram: 08/27/16 0540 08/27/16 0540 Results 24 hrs Laboratory Tests Test 08/27/16 05:40 Anion Gap 14 Basophils # 0.0 Basophils % 0.7 Blood Morphology Comment Blood Urea Nitrogen 19 Calcium Level 8.3 L Carbon Dioxide Level 26 Chloride Level 100 Creatinine 2.32 H Eosinophils # 0.2 Eosinophils % 2.7 Glucose Level 100 Hematocrit 34.2 L Hemoglobin 11.4 L Lymphocytes # 1.2 Lymphocytes % 19.0 Magnesium Level 2.4 Mean Corpuscular Hemoglobin 31.7 Mean Corpuscular Hemoglobin Concent 33.4 Mean Corpuscular Volume 94.9 Mean Platelet Volume 9.9 Monocytes # 1.0 H Monocytes % 15.4 H Neutrophils # 3.9 Neutrophils % 62.2 Nucleated Red Blood Cells # 0.0 Nucleated Red Blood Cells % 0.0 Phosphorus Level 2.5 Platelet Count 180 Potassium Level 4.0 Red Blood Count 3.61 L Red Cell Distribution Width 16.2 H Sodium Level 136 White Blood Count 6.3 Medications Medications Current Medications Ondansetron HCl (Zofran Inj) 4 mg Q6H PRN IV NAUSEA AND/OR VOMITING; Start 08/21 at 15:00 Acetaminophen (Tylenol Supp) [address] PAIN LEVEL 1-3 OR FEVER; Start 08/21/16 at 15:00 Enalaprilat (Vasotec Iv) 1.25 mg Q6H PRN IV ELEVATED SYSTOLIC BP Last administered on 08/23/16 12:21; Admin Dose 1.25 MG; Start 08/22/16 at 02:30 Famotidine (Pepcid Iv) 20 mg DAILY IV Last administered on 08/26/16 09:29; Admin Dose 20 MG; Start 08/22/16 at 10:30 Acetaminophen 650 mg 650 mg Q4H PRN NGT PAIN AND OR ELEVATED TEMP Last administered on 08/22/16 18:21; Admin Dose 650 MG; Start 08/22/16 at 17:30 Nicardipine HCl/ Dextrose (Cardene Iv/D5W) 250 ml @ 50 mls/hr TITRATE IV ; Start 08/22/16 at 20:00 Collagenase 1 applic 1 applic DAILY TOP Last administered on 08/26/16 09:19; Admin Dose 1 APPLIC; Start 08/23/16 at 20:00 Levetiracetam 1000 mg/Sodium Chloride 110 ml @ 440 mls/hr AM IVPB Last administered on 08/26/16 09:30; Admin Dose 440 MLS/HR; Start 08/26/16 at 09:00 Piperacillin Sod/ Tazobactam Sod (Zosyn 2.25gm/ 50ml (Pmx)) 50 ml @ 100 mls/hr Q8 IVPB Last administered on 08/27/16 06:08; Admin Dose 100 MLS/HR; Start at 22:00 Hydralazine HCl (Apresoline) 25 mg Q6 PRN PO SBP above 160; Start 08/25/16 at 20:00 Phenytoin (Dilantin) 100 mg Q8 IV Last administered on 08/27/16 06:08; Admin Dose 100 MG; Start 08/26/16 at 06:00 Metoprolol Tartrate (Lopressor) 25 mg BID PO Last administered on 08/26/16 21: 36; Admin Dose 25 MG; Start 08/26/16 at 21:00 GIOVANNI JOHNS Aug 27, 2016 08:19
--- NOTE | 2016-08-27 08:32 | PN ---
DATE: 08/27/2016 SUBJECTIVE: The patient had hemodialysis yesterday, tolerated it well with 2 L removed. No other a cute events noted. OBJECTIVE: VITAL SIGNS: Blood pressure is 158/80, respirations 15, pulse 77, temperature 98.8. HEENT: Head is normocephalic. NECK: Supple. HEART: Regular rate. LUNGS: Show diminished breath sounds at the base. ABDOMEN: Soft, nontender to palpation. No rebound or guarding. EXTREMITIES: Negative for clubbing, cyanosis, no edema. DERMATOLOGIC: No rashes. MUSCULOSKELETAL: No joint effusions. NEUROLOGIC: No change in exam. MEDICATIONS: The patient's medications have been reviewed. LABORATORY DATA: Shows sodium 136, potassium 4.0, BUN 92, creatinine 2.32. White count 6.3, hemogl obin 11.4, hematocrit 34.2, and platelet count is 180. ASSESSMENT AND PLAN: 1. End-stage renal disease. The patient had hemodialysis yesterday, tolerated it well with 2 L rem eric. Plan for dialysis again today. 2. Mineral bone disorder. Continue to monitor calcium and phosphorus levels. 3. Anemia. Continue to monitor H and H levels. Will continue Epogen. 4. Ventilator-dependent respiratory failure. Vent settings have been reviewed. ABG has been revie wed. Continue to monitor. 5. Ischemic encephalopathy with underlying dementia. Etiology is unclear. Continue anti-seizure m edications. Follow up with primary team, neurology. 6. Hypertension. Continue current blood pressure regimen. 7. Coronary artery disease. Continue medical management. 8. Possible sepsis. Continue current antibiotic regimen. Dictated By: LAN HANKS/SANDRA Conf#: [id number] DID#: [id number]
[2016-08-27] MEDS: LEVETIRACETAM IV 1,000 MG in SOD CHLORIDE 0.9% 100 ML IVPB SCH (08:42)
[2016-08-27] MEDS: METOPROLOL 25 MG TAB PO SCH ×2 (08:42→21:00)
[2016-08-27] MEDS: SEVELAMER CARBONATE 0.8 GM PKT PO SCH ×3 (08:42→17:23)
[2016-08-27] MEDS: FAMOTIDINE 20 MG INJ IV SCH (08:42)
[2016-08-27] MEDS: COLLAGENASE 30 GM TUBE TOP SCH (08:43)
--- NOTE | 2016-08-27 08:43 | PN ---
Date/Time of Note Date/Time of Note DATE: 08/27/16 TIME: 08:22 Assessment/Plan VTE Prophylaxis VTE Prophylaxis Intervention: SCD's Lines/Catheters IV Catheter Type (from Nrs): Peripheral IV Urinary Cath still in place: Yes Reason Cath still needed: other (indicate) (moniotor UOP ) Assessment/Plan Assessment/Plan 71-year-old female with: 1. Acute and severe encephalopathy with [place] Coma Score of 3 on arrival to ED. Required intubation for airway protection. Off propofol for a few days and still very minimally responsive, opens eyes MRI negative and CT head negative but EEG c/w seizures On Keppra now and Neurology following ? sepsis as the patient was at first hypotensive on dialysis at the time of loss of consciousness. Urine cx with ESBL, on Imipenem. 2. Acute respiratory failure related to severe encephalopathy on admission. On Vent, stable and Pulmonary following MRI brain negative, EEG c/w seizures Pulmonary following Neuro work up ongoing 3. Severe hypertension on admission. BP better but labile and targeting normotensive BP, now BP better and resuming BBlock at lower dose Continue Metoprolol and Vasotec prn for now. 4. End-stage renal disease. HD today. Dr. Saldana following. 5. Hypokalemia. adjusting with HD, repleting mag today Appreciate assistance from Dr Nash. 6. Anemia of chronic disease, stable H/H so far. 7. ESBL Urinary tract infection, on Imipenem now and on contact precautions. Lactic acid wnl. Prophylaxis: Sequential compression devices to lower extremity for DVT prophylaxis and Pepcid for GI prophylaxis. 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 Subjective 24 Hr Interval Summary Free Text/Dictation Patient still minimally responsive on my exam, opens eyes and blinks but no tracking on commands Afebrile, WBC wnl HD today Appreciate assistance from Mayte Guido when scheduled Exam/Review of Systems Vital Signs Vitals Vital Signs Date Time Temp Pulse Resp B/P Pulse Ox O2 Delivery O2 Flow Rate FiO2 08/27/16 06:00 77 15 158/80 100 Mechanical Ventilator 08/27/16 05:10 40 08/27/16 04:00 98.8 Intake and Output 08/26/16 08/26/16 08/27/16 15:00 23:00 07:00 Intake Total 320 ml 790 ml 290 ml Output Total 85 ml 2565 ml 70 ml Balance 235 ml -1775 ml 220 ml Exam Constitutional: other (open eyes but not tracking ) Respiratory: clear to auscultation, normal air movement Cardiovascular: nl pulses, regular rate and rhythm Musculoskeletal: nl extremities to inspection Extremities: normal pulses, other (some anasarca ) Neurological: lethargic, other (mostly unresponsive ) Results Result Diagram: 08/27/16 0540 08/27/16 0540 Results 24 hrs Laboratory Tests Test 08/27/16 05:40 Anion Gap 14 Basophils # 0.0 Basophils % 0.7 Blood Morphology Comment Blood Urea Nitrogen 19 Calcium Level 8.3 L Carbon Dioxide Level 26 Chloride Level 100 Creatinine 2.32 H Eosinophils # 0.2 Eosinophils % 2.7 Glucose Level 100 Hematocrit 34.2 L Hemoglobin 11.4 L Lymphocytes # 1.2 Lymphocytes % 19.0 Magnesium Level 2.4 Mean Corpuscular Hemoglobin 31.7 Mean Corpuscular Hemoglobin Concent 33.4 Mean Corpuscular Volume 94.9 Mean Platelet Volume 9.9 Monocytes # 1.0 H Monocytes % 15.4 H Neutrophils # 3.9 Neutrophils % 62.2 Nucleated Red Blood Cells # 0.0 Nucleated Red Blood Cells % 0.0 Phosphorus Level 2.5 Platelet Count 180 Potassium Level 4.0 Red Blood Count 3.61 L Red Cell Distribution Width 16.2 H Sodium Level 136 White Blood Count 6.3 Medications Medications Current Medications Ondansetron HCl (Zofran Inj) 4 mg Q6H PRN IV NAUSEA AND/OR VOMITING; Start 08/21 at 15:00 Acetaminophen (Tylenol Supp) 650 mg Q4H PRN [place] PAIN LEVEL 1-3 OR FEVER; Start 08/21/16 at 15:00 Enalaprilat (Vasotec Iv) 1.25 mg Q6H PRN IV ELEVATED SYSTOLIC BP Last administered on 08/23/16 12:21; Admin Dose 1.25 MG; Start 08/22/16 at 02:30 Famotidine (Pepcid Iv) 20 mg DAILY IV Last administered on 08/26/16 09:29; Admin Dose 20 MG; Start 08/22/16 at 10:30 Acetaminophen 650 mg 650 mg Q4H PRN NGT PAIN AND OR ELEVATED TEMP Last administered on 08/22/16 18:21; Admin Dose 650 MG; Start 08/22/16 at 17:30 Nicardipine HCl/ Dextrose (Cardene Iv/D5W) 250 ml @ 50 mls/hr TITRATE IV ; Start 08/22/16 at 20:00 Collagenase 1 applic 1 applic DAILY TOP Last administered on 08/26/16 09:19; Admin Dose 1 APPLIC; Start 08/23/16 at 20:00 Levetiracetam/ Sodium Chloride (Keppra Iv/NS) 110 ml @ 440 mls/hr AM IVPB Last administered on 08/26/16 09:30; Admin Dose 440 MLS/HR; Start 08/26/16 at 09:00 Hydralazine HCl (Apresoline) 25 mg Q6 PRN PO SBP above 160; Start 08/25/16 at 20:00 Phenytoin (Dilantin) 100 mg Q8 IV Last administered on 08/27/16 06:08; Admin Dose 100 MG; Start 08/26/16 at 06:00 Metoprolol Tartrate (Lopressor) 25 mg BID PO Last administered on 08/26/16 21: 36; Admin Dose 25 MG; Start 08/26/16 at 21:00 JACQUES ACHARYA Aug 27, 2016 08:32
[2016-08-27] MEDS: ENALAPRILAT 1.25 MG INJ IV PRN (14:17)
--- NOTE | 2016-08-27 20:11 | CONS ---
Date/Time of Note Date/Time of Note DATE: 08/27/16 TIME: 20:09 Consult Date/Type/Reason Admit Date/Time Aug 21, 2016 at 13:37 Initial Consult Date 08/21/16 Type of Consultation: neurology Objective Vital Signs Date Time Temp Pulse Resp B/P Pulse Ox O2 Delivery O2 Flow Rate FiO2 08/27/16 19:23 84 19 100 30 08/27/16 18:00 161/79 Mechanical Ventilator 08/27/16 16:00 98.1 Intake and Output 08/26/16 08/26/16 08/27/16 15:00 23:00 07:00 Intake Total 320 ml 790 ml 310 ml Output Total 85 ml 2565 ml 75 ml Balance 235 ml -1775 ml 235 ml Results/Medications Result Diagram: 08/27/16 0540 08/27/16 0540 Results 24 hrs Laboratory Tests Test 08/27/16 05:40 Anion Gap 14 Basophils # 0.0 Basophils % 0.7 Blood Morphology Comment Blood Urea Nitrogen 19 Calcium Level 8.3 L Carbon Dioxide Level 26 Chloride Level 100 Creatinine 2.32 H Eosinophils # 0.2 Eosinophils % 2.7 Glucose Level 100 Hematocrit 34.2 L Hemoglobin 11.4 L Lymphocytes # 1.2 Lymphocytes % 19.0 Magnesium Level 2.4 Mean Corpuscular Hemoglobin 31.7 Mean Corpuscular Hemoglobin Concent 33.4 Mean Corpuscular Volume 94.9 Mean Platelet Volume 9.9 Monocytes # 1.0 H Monocytes % 15.4 H Neutrophils # 3.9 Neutrophils % 62.2 Nucleated Red Blood Cells # 0.0 Nucleated Red Blood Cells % 0.0 Phosphorus Level 2.5 Platelet Count 180 Potassium Level 4.0 Red Blood Count 3.61 L Red Cell Distribution Width 16.2 H Sodium Level 136 White Blood Count 6.3 Medications Current Medications Ondansetron HCl (Zofran Inj) 4 mg Q6H PRN IV NAUSEA AND/OR VOMITING; Start 08/21 at 15:00 Acetaminophen (Tylenol Supp) 650 mg Q4H PRN [place] PAIN LEVEL 1-3 OR FEVER; Start 08/21/16 at 15:00 Enalaprilat (Vasotec Iv) 1.25 mg Q6H PRN IV ELEVATED SYSTOLIC BP Last administered on 08/27/16t 14:17; Admin Dose 1.25 MG; Start 08/22/16 at 02:30 Famotidine (Pepcid Iv) 20 mg DAILY IV Last administered on 08/27/16 08:42; Admin Dose 20 MG; Start 08/22/16 at 10:30 Acetaminophen 650 mg 650 mg Q4H PRN NGT PAIN AND OR ELEVATED TEMP Last administered on 08/22/16 18:21; Admin Dose 650 MG; Start 08/22/16 at 17:30 Nicardipine HCl/ Dextrose (Cardene Iv/D5W) 250 ml @ 50 mls/hr TITRATE IV ; Start 08/22/16 at 20:00 Collagenase 1 applic 1 applic DAILY TOP Last administered on 08/27/16 08:43; Admin Dose 1 APPLIC; Start 08/23/16 at 20:00 Levetiracetam/ Sodium Chloride (Keppra Iv/NS) 110 ml @ 440 mls/hr AM IVPB Last administered on 08/27/16 08:42; Admin Dose 440 MLS/HR; Start 08/26/16 at 09:00 Hydralazine HCl (Apresoline) 25 mg Q6 PRN PO SBP above 160; Start 08/25/16 at 20:00 Phenytoin (Dilantin) 100 mg Q8 IV Last administered on 08/27/16 14:17; Admin Dose 100 MG; Start 08/26/16 at 06:00 Metoprolol Tartrate (Lopressor) 25 mg BID PO Last administered on 08/27/16 08: 42; Admin Dose 25 MG; Start 08/26/16 at 21:00 Assessment/Plan Chief Complaint/Hosp Course PHYSICAL EXAMINATION: GENERAL: The patient is not in acute distress, lying in bed, intubated orally. HEENT: Normocephalic, atraumatic head. NECK: Supple neck. No meningeal signs. LUNGS: Clear to auscultation bilaterally. CARDIAC: Normal cardiac rhythm and sounds. ABDOMEN: Soft. Present bowel sounds. EXTREMITIES: No cyanosis, clubbing or edema. NEUROLOGIC: Patient is lethargic but opens eyes to stimulation. Does not follow commands. No eye deviation . Does not blinks to visual threat today. Pupils reactive from 3 to 2 mm bilaterally. Extraocular movements seem to be present with oculocephalic maneuver. Corneal reflexes present bilaterally. Motor strength examination shows symmetrical, trace withdrawal of extremities to noxious stimuli. Flaccid tone. Deep tendon reflexes 2+ upper extremities, was not able to get in lower extremities. Upgoing toes bilaterally. IMPRESSION: Acute encephalopathy, minimal improvement. Seizures. On Keppra, dilantin. Repeat EEG Respiratory failure, urinary tract infection, end-stage renal disease, strokes were ruled out by MRI. Problems: DICK WATERS MD Aug 27, 2016 20:11
[2016-08-28] VITALS (36 sets, daily range): BP systolic 115–172; BP diastolic 44–81; PULSE 60–88; RESP 12–19
[2016-08-28] MEDS: PHENYTOIN 100 MG INJ IV SCH ×3 (05:50→21:50)
[2016-08-28] MEDS: METOPROLOL 25 MG TAB PO SCH ×2 (08:10→20:21)
[2016-08-28] MEDS: SEVELAMER CARBONATE 0.8 GM PKT PO SCH ×3 (08:10→17:49)
[2016-08-28] MEDS: FAMOTIDINE 20 MG INJ IV SCH (08:10)
[2016-08-28] MEDS: COLLAGENASE 30 GM TUBE TOP SCH (08:11)
[2016-08-28] MEDS: LEVETIRACETAM IV 1,000 MG in SOD CHLORIDE 0.9% 100 ML IVPB SCH (08:13)
--- NOTE | 2016-08-28 08:24 | PN ---
DATE: 08/28/2016 SUBJECTIVE: The patient is clinically critical, still remains on full ventilatory support. The pat jong had hemodialysis yesterday, with 2 liters removed. No other acute events noted. No hemoptysis, hematemesis or hematochezia. OBJECTIVE: VITAL SIGNS: Blood pressure is 144/54, respirations 17, pulse 75, temperature 98.4. HEENT: Head is normocephalic. NECK: Supple. HEART: Regular rate. LUNGS: Show diminished breath sounds at the base. ABDOMEN: Soft, nontender to palpation. No rebound or guarding. EXTREMITIES: Negative for clubbing or cyanosis. No edema. DERMATOLOGIC: No rashes. MUSCULOSKELETAL: Have no joint effusion. NEUROLOGIC: No change in exam. MEDICATIONS: The patient's medications have been reviewed. LABORATORY DATA: Has been reviewed, currently pending. ASSESSMENT AND PLAN: 1. End-stage renal disease. The patient had hemodialysis yesterday and tolerated it well. Plan fo r dialysis tomorrow for 3 hours, a 2K bath, calcium 2.5. 2. Mineral bone disorder. Continue to monitor calcium and phosphorus levels. 3. Anemia. Continue to monitor hemoglobin and hematocrit levels. Continue Epogen. 4. Ventilatory-dependent respiratory failure. Vent settings have been reviewed. ABG has been revi ewed. Continue to monitor. 5. Acute encephalopathy with underlying dementia. Underlying etiology is unclear, possibly toxic m etabolic. Continue to monitor. Follow up with primary team. 6. Seizures. Continue Keppra. 7. Hypertension. Continue the current blood pressure regimen. Continue ultrafiltration with dialy sis. 8. Coronary artery disease. Continue medical management. 9. Possible sepsis. Continue the current antibiotic regimen. Dictated By: LAN HANKS/SANDRA Conf#: [id number] DID#: [id number]
[2016-08-28 08:27] LABS: BASOPHILS % 0.5 % (0.0-2.0); EOSINOPHILS # 0.1 10^3/ul (0.0-0.5); EOSINOPHILS % 1.5 % (0.0-7.0); HEMOGLOBIN 10.7 g/dl (12.0-16.0); LYMPHOCYTES # 1.1 10^3/ul (0.8-2.9); LYMPHOCYTES % 15.9 % (15.0-51.0); MEAN CORPUSCULAR HEMOGLOBIN 32.2 pg (29.0-33.0); MEAN CORPUSCULAR HGB CONC 33.3 g/dl (32.0-37.0); MEAN CORPUSCULAR VOLUME 96.8 fl (82.0-101.0); MEAN PLATELET VOLUME 9.5 fl (7.4-10.4); MONOCYTE # 0.9 10^3/ul (0.3-0.9); MONOCYTES % 12.5 % (0.0-11.0); NEUTROPHILS % 69.6 % (39.0-77.0); PLATELET COUNT 225 10^3/UL (140-440); RED BLOOD COUNT 3.31 10^6/ul (4.20-5.40); RED CELL DISTRIBUTION WIDTH 17.2 % (11.5-14.5); UNCORRECTED WBC 7.1 10^3/ul (4.8-10.8); WHITE BLOOD COUNT 7.1 10^3/ul (4.8-10.8)
[2016-08-28 08:32] LABS: CONDITION 1; LH ANALYZER COMMENTS 1
[2016-08-28 08:40] LABS: CREATININE 2.43 mg/dl (0.44-1.00)
[2016-08-28 08:41] LABS: CALCIUM 8.6 mg/dl (8.4-10.2)
--- NOTE | 2016-08-28 09:04 | CONS ---
Date/Time of Note Date/Time of Note DATE: 08/28/16 TIME: 09:01 Assessment/Plan Assessment/Plan Additional Assessment/Plan Ventilator settings; assist control of 14, tidal volume 350, PEEP of 5, 30% FiO2. Assessment and recommendations; 1. Patient admitted with hypertensive encephalopathy leading to respiratory failure. 2. Hypertension. 3. End-stage renal disease. On hemodialysis. 4. Likely improved mental status today. Continue current treatment for now ventilator settings have been adjusted patient has been switched over to SIMV with a rate of 10 pressure support of 10 as tolerated. Weaning from ventilator will depend upon adequate mental status recovery. Consultation Date/Type/Reason Admit Date/Time Aug 21, 2016 at 13:37 Initial Consult Date 08/21/16 Type of Consultation: Pulmonary/critical care 24 HR Interval Summary Free Text/Dictation Patient condition remains critical. Still requiring full ventilator support owing to persistent poor mental status. However the patient is slightly more awake now and opens eyes readily on name calling, but does not follow any other commands. Has remained hemodynamically stable. Physical examination; elderly lady, orally intubated, readily arousable. Currently in no distress. Exam/Review of Systems Vital Signs Vitals Vital Signs Date Time Temp Pulse Resp B/P Pulse Ox O2 Delivery O2 Flow Rate FiO2 08/28/16 08:06 80 16 100 30 08/28/16 07:00 144/54 Mechanical Ventilator 08/28/16 04:00 98.4 Intake and Output 08/27/16 08/27/16 08/28/16 15:00 23:00 07:00 Intake Total 950 ml 240 ml 430 ml Output Total 2525 ml 0 ml Balance -1575 ml 240 ml 430 ml Exam H EENT examination; supple neck, no JVD. No lymphadenopathy. Midline trachea. Orally intubated. No neck masses. No thyromegaly. Chest examination; diminished but clear breath sounds bilaterally. S1-S2 audible, no murmurs. Regular rhythm. Abdomen examination; soft, nondistended, no organomegaly. Bowel sounds audible. Extremity examination; no peripheral edema. There is an AV shunt in the left arm. MEDICAL COST CONSULTANT examination; patient opens eyes on name calling but does not follow any other commands. Results Result Diagram: 08/28/1672208/28/16722 Results 24 hrs Laboratory Tests Test 08/28/16 07:23 Anion Gap 12 Basophils # 0.0 Basophils % 0.5 Blood Morphology Comment Blood Urea Nitrogen 18 Calcium Level 8.6 Carbon Dioxide Level 31 Chloride Level 103 Creatinine 2.43 H Eosinophils # 0.1 Eosinophils % 1.5 Glucose Level 108 Hematocrit 32.0 L Hemoglobin 10.7 L Lymphocytes # 1.1 Lymphocytes % 15.9 Mean Corpuscular Hemoglobin 32.2 Mean Corpuscular Hemoglobin Concent 33.3 Mean Corpuscular Volume 96.8 Mean Platelet Volume 9.5 Monocytes # 0.9 Monocytes % 12.5 H Neutrophils # 5.0 Neutrophils % 69.6 Nucleated Red Blood Cells # 0.0 Nucleated Red Blood Cells % 0.0 Platelet Count 225 # Potassium Level 4.0 Red Blood Count 3.31 L Red Cell Distribution Width 17.2 H Sodium Level 142 White Blood Count 7.1 Medications Medications Current Medications Ondansetron HCl (Zofran Inj) 4 mg Q6H PRN IV NAUSEA AND/OR VOMITING; Start 08/21 at 15:00 Acetaminophen (Tylenol Supp) 650 mg Q4H PRN [place] PAIN LEVEL 1-3 OR FEVER; Start 08/21/16 at 15:00 Enalaprilat (Vasotec Iv) 1.25 mg Q6H PRN IV ELEVATED SYSTOLIC BP Last administered on 08/27/16 14:17; Admin Dose 1.25 MG; Start 08/22/16 at 02:30 Famotidine (Pepcid Iv) 20 mg DAILY IV Last administered on 08/28/16 08:10; Admin Dose 20 MG; Start 08/22/16 at 10:30 Acetaminophen 650 mg 650 mg Q4H PRN NGT PAIN AND OR ELEVATED TEMP Last administered on 08/22/16 18:21; Admin Dose 650 MG; Start 08/22/16 at 17:30 Nicardipine HCl/ Dextrose (Cardene Iv/D5W) 250 ml @ 50 mls/hr TITRATE IV ; Start 08/22/16 at 20:00 Collagenase 1 applic 1 applic DAILY TOP Last administered on 08/28/16 08:11; Admin Dose 1 APPLIC; Start 08/23/16 at 20:00 Levetiracetam/ Sodium Chloride (Keppra Iv/NS) 110 ml @ 440 mls/hr AM IVPB Last administered on 08/28/16 08:13; Admin Dose 440 MLS/HR; Start 08/26/16 at 09:00 Hydralazine HCl (Apresoline) 25 mg Q6 PRN PO SBP above 160 Last administered on 08/27/16 20:59; Admin Dose 25 MG; Start 08/25/16 at 20:00 Phenytoin (Dilantin) 100 mg Q8 IV Last administered on 08/28/16 05:50; Admin Dose 100 MG; Start 08/26/16 at 06:00 Metoprolol Tartrate (Lopressor) 25 mg BID PO Last administered on 08/28/16 08: 10; Admin Dose 25 MG; Start 08/26/16 at 21:00 GIOVANNI JOHNS Aug 28, 2016 09:04
[2016-08-28 09:11] LABS: PHOSPHORUS 1.7 mg/dl (2.5-4.9)
[2016-08-28 09:12] LABS: MAGNESIUM 2.2 mg/dl (1.7-2.5)
--- NOTE | 2016-08-28 10:48 | PN ---
Date/Time of Note Date/Time of Note DATE: 08/28/16 TIME: 10:37 Assessment/Plan VTE Prophylaxis VTE Prophylaxis Intervention: SCD's Lines/Catheters IV Catheter Type (from Nrs): Peripheral IV Urinary Cath still in place: No Assessment/Plan Assessment/Plan 71-year-old female with: 1. Seizures with acute and severe encephalopathy with Juan Coma Score of 3 on arrival to ED. Required intubation for airway protection. Off propofol for a few days and started on Keppra for seizures, seems to be a little more responsive today, opens eyes and seems to track a little and also per RN moving hands a little. MRI negative and CT head negative but EEG c/w seizures Continue Keppra and Neurology following ? sepsis as the patient was at first hypotensive on dialysis at the time of loss of consciousness. Urine cx with ESBL, on Imipenem. 2. Acute respiratory failure related to severe encephalopathy on admission. On Vent, stable and Pulmonary following MRI brain negative, EEG c/w seizures, trial of extubation if MS keeps improving Pulmonary following. 3. Severe hypertension on admission. BP better but labile and targeting normotensive BP, now BP better and resuming BBlock at lower dose Continue Metoprolol and Vasotec prn for now. 4. End-stage renal disease. HD per schedule M/W/. Dr. Saldana following. 5. Hypokalemia. resolved now, adjusting with HD. Appreciate assistance from Dr Nash. 6. Anemia of chronic disease, stable H/H so far. 7. ESBL Urinary tract infection, on Imipenem now and on contact precautions. Plan to rx for 14 days Prophylaxis: Sequential compression devices to lower extremity for DVT prophylaxis and Pepcid for GI prophylaxis. DISPOSITION: ICU/Vent care, appreciate Neurology, Nephrology and Pulmonary follow up clinical services assistant and Palliative care consult and Bioethics conference planned for today, [facility] . Subjective 24 Hr Interval Summary Free Text/Dictation Patient seems to be a little more responsive today, she opens eyes faster to voice and seems to attempt to track Per RN seems to be moving her hands some Afebrile and labs remain stable Exam/Review of Systems Vital Signs Vitals Vital Signs Date Time Temp Pulse Resp B/P Pulse Ox O2 Delivery O2 Flow Rate FiO2 08/28/16 09:00 67 15 155/48 100 Mechanical Ventilator 08/28/16 08:06 30 08/28/16 08:00 98.0 Intake and Output 08/27/16 08/27/16 08/28/16 15:00 23:00 07:00 Intake Total 950 ml 240 ml 430 ml Output Total 2525 ml 0 ml Balance -1575 ml 240 ml 430 ml Exam Constitutional: other (more easily arousable today ) Respiratory: clear to auscultation, other (on vent but stable ) Cardiovascular: nl pulses, regular rate and rhythm Gastrointestinal: non-tender, soft Musculoskeletal: nl extremities to inspection Extremities: normal pulses, other (no edema, clubbing or cyanosis ) Neurological: lethargic, other (a little more responsive today ) Results Result Diagram: 08/28/1672208/28/16 0723 Results 24 hrs Laboratory Tests Test 08/28/16 07:23 Anion Gap 12 Basophils # 0.0 Basophils % 0.5 Blood Morphology Comment Blood Urea Nitrogen 18 Calcium Level 8.6 Carbon Dioxide Level 31 Chloride Level 103 Creatinine 2.43 H Eosinophils # 0.1 Eosinophils % 1.5 Glucose Level 108 Hematocrit 32.0 L Hemoglobin 10.7 L Lymphocytes # 1.1 Lymphocytes % 15.9 Magnesium Level 2.2 Mean Corpuscular Hemoglobin 32.2 Mean Corpuscular Hemoglobin Concent 33.3 Mean Corpuscular Volume 96.8 Mean Platelet Volume 9.5 Monocytes # 0.9 Monocytes % 12.5 H Neutrophils # 5.0 Neutrophils % 69.6 Nucleated Red Blood Cells # 0.0 Nucleated Red Blood Cells % 0.0 Phosphorus Level 1.7 L Platelet Count 225 # Potassium Level 4.0 Red Blood Count 3.31 L Red Cell Distribution Width 17.2 H Sodium Level 142 White Blood Count 7.1 Medications Medications Current Medications Ondansetron HCl (Zofran Inj) 4 mg Q6H PRN IV NAUSEA AND/OR VOMITING; Start 08/21 at 15:00 Acetaminophen (Tylenol Supp) 650 mg Q4H PRN [place] PAIN LEVEL 1-3 OR FEVER; Start 08/21/16 at 15:00 Enalaprilat (Vasotec Iv) 1.25 mg Q6H PRN IV ELEVATED SYSTOLIC BP Last administered on 08/27/16 14:17; Admin Dose 1.25 MG; Start 08/22/16 at 02:30 Famotidine (Pepcid Iv) 20 mg DAILY IV Last administered on 08/28/16 08:10; Admin Dose 20 MG; Start 08/22/16 at 10:30 Acetaminophen 650 mg 650 mg Q4H PRN NGT PAIN AND OR ELEVATED TEMP Last administered on 08/22/16 18:21; Admin Dose 650 MG; Start 08/22/16 at 17:30 Nicardipine HCl/ Dextrose (Cardene Iv/D5W) 250 ml @ 50 mls/hr TITRATE IV ; Start 08/22/16 at 20:00 Collagenase 1 applic 1 applic DAILY TOP Last administered on 08/28/16 08:11; Admin Dose 1 APPLIC; Start 08/23/16 at 20:00 Levetiracetam/ Sodium Chloride (Keppra Iv/NS) 110 ml @ 440 mls/hr AM IVPB Last administered on 08/28/16 08:13; Admin Dose 440 MLS/HR; Start 08/26/16 at 09:00 Hydralazine HCl (Apresoline) 25 mg Q6 PRN PO SBP above 160 Last administered on 08/27/16 20:59; Admin Dose 25 MG; Start 08/25/16 at 20:00 Phenytoin (Dilantin) 100 mg Q8 IV Last administered on 08/28/16 05:50; Admin Dose 100 MG; Start 08/26/16 at 06:00 Metoprolol Tartrate (Lopressor) 25 mg BID PO Last administered on 08/28/16 08: 10; Admin Dose 25 MG; Start 08/26/16 at 21:00 JACQUES ACHARYA Aug 28, 2016 10:48
[2016-08-28] MEDS: ENALAPRILAT 1.25 MG INJ IV PRN (15:24)
--- NOTE | 2016-08-28 20:44 | NEURPT ---
DATE: 08/28/2016 ELECTROENCEPHALOGRAM INDICATION: The patient with severe encephalopathy and recent seizures. Previous EEG showed seizur e activity. Currently patient on Keppra and Dilantin. DESCRIPTION OF PROCEDURE: Routine EEG was recorded digitally. [id number] and [id number] trnug ages were recorded and reviewed. All impedances were measured and recorded. Cap electrodes were pl aced in accordance with International 10-20 system of electrode placement. FINDINGS: Symmetrically distributed background activity of low to medium amplitude ranging in frequ ency between 2 to 4 cycles per second was seen throughout the recording. Intermittently, eye moveme nt artifacts observed. No definite response to photic stimulation. At times, the patient exhibits generalized sharp waves with triphasic morphology. This activity is not rhythmical. IMPRESSION: Abnormal study secondary to background slowing and presence of triphasic sharp waves, a ll likely reflect the patient's encephalopathy. No ongoing electrographic seizures. At least ruby buck, sharp waves could be epileptogenic, so it is probably reasonable to continue antiepileptic c overage with current medications. Dictated By: DICK MATHEWS/SANDRA Conf#: [id number] DID#: [id number]
[2016-08-29] VITALS (46 sets, daily range): BP systolic 90–177; BP diastolic 38–79; PULSE 60–97; RESP 7–20
[2016-08-29] MEDS: ACETAMINOPHEN 650MG/20.3ML CUP NGT PRN (02:25)
[2016-08-29] MEDS: PHENYTOIN 100 MG INJ IV SCH ×3 (05:57→21:32)
[2016-08-29 06:32] LABS: HEMATOCRIT 26.6 % (37.0-47.0); HEMOGLOBIN 9.3 g/dl (12.0-16.0); MEAN CORPUSCULAR HEMOGLOBIN 33.9 pg (29.0-33.0); MEAN PLATELET VOLUME 9.4 fl (7.4-10.4); PLATELET COUNT 328 10^3/UL (140-440); RED BLOOD COUNT 2.75 10^6/ul (4.20-5.40)
[2016-08-29 06:46] LABS: CONDITION 1; LH ANALYZER COMMENTS 1; SUSPECT 1; UNCORRECTED WBC 13.3 10^3/ul (4.8-10.8); WHITE BLOOD COUNT 8.9 10^3/ul (4.8-10.8)
[2016-08-29 06:52] LABS: MAGNESIUM 2.3 mg/dl (1.7-2.5); PHOSPHORUS 1.7 mg/dl (2.5-4.9); POTASSIUM 4.1 mmol/L (3.5-5.1)
[2016-08-29 06:54] LABS: CREATININE 3.12 mg/dl (0.44-1.00)
[2016-08-29 06:56] LABS: CALCIUM 8.2 mg/dl (8.4-10.2)
--- NOTE | 2016-08-29 07:56 | PN ---
DATE: 08/29/2016 SUBJECTIVE: The patient remains critically ill, on full ventilatory support. No significant change . No other events noted. No hemoptysis, hematemesis or hematochezia. OBJECTIVE: VITAL SIGNS: Blood pressure 139/79, respirations 15, pulse 69, temperature 98.2. I's and O's were reviewed. HEENT: Head is normocephalic. NECK: Supple. HEART: Regular rate. LUNGS: Showed diminished breath sounds at the base. ABDOMEN: Soft, nontender to palpation. No rebound or guarding. EXTREMITIES: Negative for clubbing or cyanosis. No edema. DERMATOLOGIC: No rashes. MUSCULOSKELETAL: Have no joint effusion. NEUROLOGIC: No change in exam. MEDICATIONS: The patient's medications have been reviewed. LABORATORY DATA: Shows sodium 140, potassium 4.1, chloride 102, BUN 27, creatinine 3.12, calcium 8. 2, phosphorus is 1.7. White count 8.9, hemoglobin 9.3, hematocrit 26.6, platelet count 328. ASSESSMENT AND PLAN: 1. End-stage renal disease. Plan for hemodialysis today for 3 hours on a 3K bath, calcium 2.5. 2. Mineral bone disorder. The patient is hypophosphatemic. Will replete with potassium phosphate of 20 mEq IV x1. 3. Anemia. Continue Epogen following dialysis. 4. Ventilatory-dependent respiratory failure. Vent settings have been reviewed. Continue to monit or. Follow up with pulmonary. Attempt weaning per pulmonary. 5. Acute encephalopathy and dementia. Etiology is toxic metabolic. Continue to monitor. Neurolog y is following. 6. Seizure disorder. Continue Keppra. 7. Hypertension. Blood pressure is controlled. Continue ultrafiltration with dialysis. 8. Coronary artery disease. Continue medical management. 9. Urinary tract infection. The patient is on antibiotic therapy. Continue. Dictated By: LAN HANKS/SANDRA Conf#: [id number] DID#: [id number]
[2016-08-29] MEDS: LEVETIRACETAM IV 1,000 MG in SOD CHLORIDE 0.9% 100 ML IVPB SCH (08:02)
[2016-08-29] MEDS: FAMOTIDINE 20 MG INJ IV SCH (08:02)
[2016-08-29] MEDS: SEVELAMER CARBONATE 0.8 GM PKT PO SCH ×3 (08:02→17:30)
[2016-08-29] MEDS: METOPROLOL 25 MG TAB PO SCH ×2 (08:02→21:32)
--- NOTE | 2016-08-29 08:59 | CONS ---
Date/Time of Note Date/Time of Note DATE: 08/29/16 TIME: 08:56 Assessment/Plan Assessment/Plan Additional Assessment/Plan Ventilator settings; SIMV of 10, pressure support of 10, tidal volume 350, 30% FiO2. Assessment and recommendations; 1. Patient admitted with hypertensive encephalopathy leading to respiratory failure. 2. Very slow mental status recovery. 3. History of end-stage renal disease on hemodialysis. 4. Currently no evidence of any infective process. 5. History of severe hypertension. Routine current treatment. The patient was again briefly assessed at bedside on CPAP mode, currently has good weaning parameters however owing to poor mental status I would not recommend extubating her until there is further improvement in her mentation. Consultation Date/Type/Reason Admit Date/Time Aug 21, 2016 at 13:37 Initial Consult Date 08/21/16 Type of Consultation: Pulmonary/critical care 24 HR Interval Summary Free Text/Dictation Patient's condition remains critical. Still requiring full ventilator support. However is getting readily more arousable. And opens eyes on name calling. Responses much faster today over the last 24 hours. General examination; elderly lady orally intubated. Currently in no distress. Exam/Review of Systems Vital Signs Vitals Vital Signs Date Time Temp Pulse Resp B/P Pulse Ox O2 Delivery O2 Flow Rate FiO2 08/29/16 08:00 98.5 68 14 137/47 100 Mechanical Ventilator 08/29/16 08:00 30 Intake and Output 08/28/16 08/28/16 08/29/16 15:00 23:00 07:00 Intake Total 530 ml 350 ml 340 ml Balance 530 ml 350 ml 340 ml Exam HEENT examination; supple neck, no JVD. Orally intubated. Pupils are small bilaterally. No neck masses. No thyromegaly. No neck bruits. Chest examination; diminished but clear breath sounds bilaterally. S1-S2 audible, no murmurs. Regular rhythm. Abdomen examination; soft, no organomegaly. Bowel sounds audible. Extremity examination; no peripheral edema. There is an AV shunt in the right arm. 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 Spontaneously moves both upper extremities. Results Result Diagram: 08/29/16 0550 08/29/16 0550 Results 24 hrs Laboratory Tests Test 08/29/16 05:50 Anion Gap 11 Basophils # Blood Morphology Comment Blood Urea Nitrogen 27 H Calcium Level 8.2 L Carbon Dioxide Level 31 Chloride Level 102 Creatinine 3.12 H Eosinophils # Glucose Level 113 Hematocrit 26.6 L Hemoglobin 9.3 L Lymphocytes # Magnesium Level 2.3 Mean Corpuscular Hemoglobin 33.9 H Mean Corpuscular Hemoglobin Concent 35.0 Mean Corpuscular Volume 97.0 Mean Platelet Volume 9.4 Monocytes # Neutrophils # Phosphorus Level 1.7 L Platelet Count 328 # Potassium Level 4.1 Red Blood Count 2.75 L Red Cell Distribution Width 17.0 H Sodium Level 140 White Blood Count 8.9 # Medications Medications Current Medications Ondansetron HCl (Zofran Inj) 4 mg Q6H PRN IV NAUSEA AND/OR VOMITING; Start 08/21 at 15:00 Acetaminophen (Tylenol Supp) [address] PAIN LEVEL 1-3 OR FEVER; Start 08/21/16 at 15:00 Enalaprilat (Vasotec Iv) 1.25 mg Q6H PRN IV ELEVATED SYSTOLIC BP Last administered on 08/28/16 15:24; Admin Dose 1.25 MG; Start 08/22/16 at 02:30 Famotidine (Pepcid Iv) 20 mg DAILY IV Last administered on 08/29/16 08:02; Admin Dose 20 MG; Start 08/22/16 at 10:30 Acetaminophen 650 mg 650 mg Q4H PRN NGT PAIN AND OR ELEVATED TEMP Last administered on 08/29/16 02:25; Admin Dose 650 MG; Start 08/22/16 at 17:30 Nicardipine HCl/ Dextrose (Cardene Iv/D5W) 250 ml @ 50 mls/hr TITRATE IV ; Start 08/22/16 at 20:00 Collagenase 1 applic 1 applic DAILY TOP Last administered on 08/28/16 08:11; Admin Dose 1 APPLIC; Start 08/23/16 at 20:00 Levetiracetam/ Sodium Chloride (Keppra Iv/NS) 110 ml @ 440 mls/hr AM IVPB Last administered on 08/29/16 08:02; Admin Dose 440 MLS/HR; Start 08/26/16 at 09:00 Hydralazine HCl (Apresoline) 25 mg Q6 PRN PO SBP above 160 Last administered on 08/29/16 02:26; Admin Dose 25 MG; Start 08/25/16 at 20:00 Phenytoin (Dilantin) 100 mg Q8 IV Last administered on 08/29/16 05:57; Admin Dose 100 MG; Start 08/26/16 at 06:00 Metoprolol Tartrate (Lopressor) 25 mg BID PO Last administered on 08/29/16 08: 02; Admin Dose 25 MG; Start 08/26/16 at 21:00 Captopril 6.25 mg 6.25 mg Q6H PRN PO PRN IF SBP ABOVE 160 MM OF HG Last administered on 08/29/16 04:05; Admin Dose 6.25 MG; Start 08/29/16 at 03:45 Potassium Phosphate/Sodium Chloride (K Phos (Meq)/NS) 254.5455 ml @ 63.636 m... ONCE ONCE IVPB ; Start 08/29/16 at 09:00; Stop 08/29/16 at 12:59 GIOVANNI JOHNS Aug 29, 2016 08:59
[2016-08-29] MEDS ORDERED: POTASSIUM PHOSPHATE 20 MEQ in SOD CHLORIDE 0.9% 250 ML IVPB ONE (09:00)
[2016-08-29] MEDS: COLLAGENASE 30 GM TUBE TOP SCH (09:02)
[2016-08-29 09:12] LABS: BASOPHIL # 0.1 10^3/ul (0.0-0.1); EOSINOPHILS # 0.1 10^3/ul (0.0-0.5); LYMPHOCYTES # 1.2 10^3/ul (0.8-2.9); MONOCYTE # 0.6 10^3/ul (0.3-0.9); NEUTROPHIL # 6.9 10^3/ul (1.6-7.5)
--- NOTE | 2016-08-29 09:37 | PN ---
Date/Time of Note Date/Time of Note DATE: 08/29/16 TIME: 09:13 Assessment/Plan VTE Prophylaxis VTE Prophylaxis Intervention: SCD's Lines/Catheters [facility] Peripheral IV Urinary Cath still in place: No Assessment/Plan Assessment/Plan 71-year-old female with: 1. Seizures with acute and severe encephalopathy with Juan Coma Score of 3 on arrival to ED. Required intubation for airway protection. MRI negative and CT head negative but EEG c/w seizures RPR positive in April 2016 and apparently patient received 1 dose of PCN IM then and was supposed to get further outpatient treatment but unclear if was done LP today and will send VDRL and also repeat RPR Start PCN for Neurosyphilis empirically until CSF studies back Off sedation and on Keppra for seizures, seems to be a little more responsive today, opens eyes and seems to track a little and also per RN moving hands a little. 2. ?Sepsis, Urine cx with ESBL, continue Imipenem. 3. Acute respiratory failure related to severe encephalopathy on admission. On Vent, stable and Pulmonary following MRI brain negative, EEG c/w seizures, LP pending and start treatment for ? Neurosyphillis with PCN Trial of extubation if MS keeps improving Pulmonary following. 3. Severe hypertension on admission. BP better but labile and targeting normotensive BP, now BP better and resuming BBlock at lower dose Continue Metoprolol and Vasotec prn for now. 4. End-stage renal disease. HD per schedule M//. Dr. Saldana following. 5. Hypokalemia. resolved now, adjusting with HD. Appreciate assistance from Dr Nash. 6. Anemia of chronic disease, stable H/H so far. 7. ESBL Urinary tract infection, on Imipenem now and on contact precautions. Plan to rx for 14 days Prophylaxis: Sequential compression devices to lower extremity for DVT prophylaxis and Pepcid for GI prophylaxis. DISPOSITION: ICU/Vent care, appreciate Neurology, Nephrology and Pulmonary follow up, LP today and rx for Neurosyphillis while awaiting VDRL Appreciate recommendations from Bioethics conference yesterday: consensus for DNR and LP Ok to be done, further decisions pending clinical course and [facility] [employer] [facility] application initiated . Subjective 24 Hr Interval Summary Free Text/Dictation Patient with positive RPR back in April and unclear if rx for latent syphilis or not, given current MS and no other obvious etiology of seizures, LP being done by Dr Muhammad today and will start PCN today On Vent and stable Exam/Review of Systems Vital Signs Vitals Vital Signs Date Time Temp Pulse Resp B/P Pulse Ox O2 Delivery O2 Flow Rate FiO2 08/29/16 08:00 98.5 68 14 137/47 100 Mechanical Ventilator 08/29/16 08:00 30 Intake and Output 08/28/16 08/28/16 08/29/16 15:00 23:00 07:00 Intake Total 530 ml 350 ml 340 ml Balance 530 ml 350 ml 340 ml Exam Constitutional: non-verbal, other (on Vent, opens eyes to voice ) Respiratory: clear to auscultation, other (on Vent ) Cardiovascular: nl pulses, regular rate and rhythm Gastrointestinal: non-tender, soft Musculoskeletal: nl extremities to inspection, other (no edema, clubbing or cyanosis ) Extremities: normal pulses 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, lethargic, other Results Result Diagram: 08/29/16 0550 08/29/16 0550 Results 24 hrs Laboratory Tests Test 08/29/16 05:50 Anion Gap 11 Basophils # Blood Morphology Comment Blood Urea Nitrogen 27 H Calcium Level 8.2 L Carbon Dioxide Level 31 Chloride Level 102 Creatinine 3.12 H Eosinophils # Glucose Level 113 Hematocrit 26.6 L Hemoglobin 9.3 L Lymphocytes # Magnesium Level 2.3 Mean Corpuscular Hemoglobin 33.9 H Mean Corpuscular Hemoglobin Concent 35.0 Mean Corpuscular Volume 97.0 Mean Platelet Volume 9.4 Monocytes # Neutrophils # Phosphorus Level 1.7 L Platelet Count 328 # Potassium Level 4.1 Red Blood Count 2.75 L Red Cell Distribution Width 17.0 H Sodium Level 140 White Blood Count 8.9 # Medications Medications Current Medications Ondansetron HCl (Zofran Inj) 4 mg Q6H PRN IV NAUSEA AND/OR VOMITING; Start 08/21 at 15:00 Acetaminophen (Tylenol Supp) 650 mg Q4H PRN [place] PAIN LEVEL 1-3 OR FEVER; Start 08/21/16 at 15:00 Enalaprilat (Vasotec Iv) 1.25 mg Q6H PRN IV ELEVATED SYSTOLIC BP Last administered on 08/28/16t 15:24; Admin Dose 1.25 MG; Start 08/22/16 at 02:30 Famotidine (Pepcid Iv) 20 mg DAILY IV Last administered on 08/29/16 08:02; Admin Dose 20 MG; Start 08/22/16 at 10:30 Acetaminophen 650 mg 650 mg Q4H PRN NGT PAIN AND OR ELEVATED TEMP Last administered on 08/29/16 02:25; Admin Dose 650 MG; Start 08/22/16 at 17:30 Nicardipine HCl/ Dextrose (Cardene Iv/D5W) 250 ml @ 50 mls/hr TITRATE IV ; Start 08/22/16 at 20:00 Collagenase 1 applic 1 applic DAILY TOP Last administered on 08/29/16 09:02; Admin Dose 1 APPLIC; Start 08/23/16 at 20:00 Levetiracetam/ Sodium Chloride (Keppra Iv/NS) 110 ml @ 440 mls/hr AM IVPB Last administered on 08/29/16 08:02; Admin Dose 440 MLS/HR; Start 08/26/16 at 09:00 Hydralazine HCl (Apresoline) 25 mg Q6 PRN PO SBP above 160 Last administered on 08/29/16 02:26; Admin Dose 25 MG; Start 08/25/16 at 20:00 Phenytoin (Dilantin) 100 mg Q8 IV Last administered on 08/29/16 05:57; Admin Dose 100 MG; Start 08/26/16 at 06:00 Metoprolol Tartrate (Lopressor) 25 mg BID PO Last administered on 08/29/16 08: 02; Admin Dose 25 MG; Start 08/26/16 at 21:00 Captopril 6.25 mg 6.25 mg Q6H PRN PO PRN IF SBP ABOVE 160 MM OF HG Last administered on 08/29/16 04:05; Admin Dose 6.25 MG; Start 08/29/16 at 03:45 Potassium Phosphate/Sodium Chloride (K Phos (Meq)/NS) 254.5455 ml @ 63.636 m... ONCE ONCE IVPB Last administered on 08/29/16 09:02; Admin Dose 63.636 MLS/HR; Start 08/29/16 at 09:00; Stop 08/29/16 at 12:59 JACQUES ACHARYA Aug 29, 2016 09:25
[2016-08-29 10:37] LABS: # OF CELLS COUNTED 100
[2016-08-29 11:14] LABS: CSF COLOR COLORLESS; CSF VOLUME 3.5 ml
[2016-08-29 11:15] LABS: CSF#TUBE COUNT TUBE#3; CSF#TUBES REC'D 3
[2016-08-29 12:49] LABS: GLUCOSE,CSF 61 mg/dl (50-80)
[2016-08-29] MEDS ORDERED: PENICILLIN K IVPB SCH (13:00)
[2016-08-29] MEDS ORDERED: DEXTROSE 5% IVPB SCH (13:00)
--- NOTE | 2016-08-29 14:56 | EN ---
Date/Time of Note Date/Time of Note DATE: 08/29/16 TIME: 14:51 Event Note Surgery Surgery Event Note Procedure is a lumbar puncture. Next Indication; patient with altered mental status. With respiratory failure as well. Further history obtained by the patient's primary care doctor indicated history of positive VDRL. Lumbar puncture requested to rule out neurosyphilis. Patient was on mechanical ventilation. She was laid in the right lateral position and position was maintained by the helping nurse. Lumbar spinal area was prepped in usual sterile fashion, topical anesthesia was achieved by instilling 2 mL of 1% lidocaine in the vertebral space between L4 and L5. 21- gauge spinal needle was used however there was significant bony resistance and attempts were unsuccessful, thereafter attempt was made between space of L3 and L4 after injecting 2 mL of lidocaine in the intervertebral space. Spinal tap was readily achieved. Was very slightly traumatic. Total of 5 mL of clear colorless fluid was obtained. Opening pressure was normal. First 2 mls were very minimally hemorrhagic but it cleared after first 2 mls were drawn. The needle was then withdrawn. There was very minimal bleeding at the puncture site. The fluid has been sent for appropriate studies. GIOVANNI JOHNS Aug 29, 2016 14:56
--- NOTE | 2016-08-29 15:42 | CONS ---
Date/Time of Note Date/Time of Note DATE: 08/29/16 TIME: 15:33 Consult Date/Type/Reason Admit Date/Time Aug 21, 2016 at 13:37 Initial Consult Date 08/29/16 Type of Consultation: Neurology follow up Reason for Consultation encephalopathy seizures Subjective receiving HD this morning encephalopathy slightly improving Objective Vital Signs Date Time Temp Pulse Resp B/P Pulse Ox O2 Delivery O2 Flow Rate FiO2 08/29/16 14:00 78 15 117/54 100 Mechanical Ventilator 08/29/16 12:00 98.0 08/29/16 08:00 30 Intake and Output 08/28/16 08/28/16 08/29/16 15:00 23:00 07:00 Intake Total 530 ml 350 ml 340 ml Balance 530 ml 350 ml 340 ml Results/Medications Result Diagram: 08/29/16 0550 08/29/16 0550 Results 24 hrs Laboratory Tests Test 08/29/16 05:50 08/29/16 09:30 Anion Gap 11 Basophils # 0.1 Basophils % 1.0 Blood Morphology Comment Blood Urea Nitrogen 27 H Calcium Level 8.2 L Carbon Dioxide Level 31 Chloride Level 102 Creatinine 3.12 H Eosinophils # 0.1 Eosinophils % 1.0 Glucose Level 113 Hematocrit 26.6 L Hemoglobin 9.3 L Lymphocytes # 1.2 Lymphocytes % 13.0 L Magnesium Level 2.3 Mean Corpuscular Hemoglobin 33.9 H Mean Corpuscular Hemoglobin Concent 35.0 Mean Corpuscular Volume 97.0 Mean Platelet Volume 9.4 Monocytes # 0.6 Monocytes % 7.0 Neutrophils # 6.9 Neutrophils % 78.0 H Phosphorus Level 1.7 L Platelet Count 328 # Potassium Level 4.1 Red Blood Count 2.75 L Red Cell Distribution Width 17.0 H Sodium Level 140 White Blood Count 8.9 # CSF Appearance CLEAR CSF Cell Count Tube # TUBE#3 CSF Color COLORLESS CSF Crenated Cells CSF Glucose 61 CSF Lymphocytes % 0 CSF Monocytes % 0 CSF Neutrophils % 100 CSF RBC 0 CSF Total Cells Counted 100 CSF Total Protein 51 CSF Tubes Submitted 3 CSF Volume 3.5 CSF WBC 1 Medications Current Medications Ondansetron HCl (Zofran Inj) 4 mg Q6H PRN IV NAUSEA AND/OR VOMITING; Start 08/21 at 15:00 Acetaminophen (Tylenol Supp) 650 mg Q4H PRN [place] PAIN LEVEL 1-3 OR FEVER; Start 08/21/16 at 15:00 Enalaprilat (Vasotec Iv) 1.25 mg Q6H PRN IV ELEVATED SYSTOLIC BP Last administered on 08/28/16 15:24; Admin Dose 1.25 MG; Start 08/22/16 at 02:30 Famotidine (Pepcid Iv) 20 mg DAILY IV Last administered on 08/29/16 08:02; Admin Dose 20 MG; Start 08/22/16 at 10:30 Acetaminophen 650 mg 650 mg Q4H PRN NGT PAIN AND OR ELEVATED TEMP Last administered on 08/29/16 02:25; Admin Dose 650 MG; Start 08/22/16 at 17:30 Nicardipine HCl/ Dextrose (Cardene Iv/D5W) 250 ml @ 50 mls/hr TITRATE IV ; Start 08/22/16 at 20:00 Collagenase 1 applic 1 applic DAILY TOP Last administered on 08/29/16 09:02; Admin Dose 1 APPLIC; Start 08/23/16 at 20:00 Levetiracetam/ Sodium Chloride (Keppra Iv/NS) 110 ml @ 440 mls/hr AM IVPB Last administered on 08/29/16 08:02; Admin Dose 440 MLS/HR; Start 08/26/16 at 09:00 Hydralazine HCl (Apresoline) 25 mg Q6 PRN PO SBP above 160 Last administered on 08/29/16 02:26; Admin Dose 25 MG; Start 08/25/16 at 20:00 Phenytoin (Dilantin) 100 mg Q8 IV Last administered on 08/29/16 13:46; Admin Dose 100 MG; Start 08/26/16 at 06:00 Metoprolol Tartrate (Lopressor) 25 mg BID PO Last administered on 08/29/16 08: 02; Admin Dose 25 MG; Start 08/26/16 at 21:00 Captopril 6.25 mg 6.25 mg Q6H PRN PO PRN IF SBP ABOVE 160 MM OF HG Last administered on 08/29/16 04:05; Admin Dose 6.25 MG; Start 08/29/16 at 03:45 Penicillin G Potassium/Dextrose (Penicillin G K/ D5W) 100 ml @ 200 mls/hr Q6 IVPB ; Start 08/29/16 at 18:00 Assessment/Plan Chief Complaint/Hosp Course 71 year old female with ESRD on HD, sepsis with ESBL in urine on abx, acute respiratory failure, severe encephalopathy requiring intubation, seizures on Keppra and Dilantin. Repeat EEG on 08/28: triphasic sharps, no electrographic seizures Planned for LP today to evaluate for potential neurosyphilis, previously + RPR Continue on current does of AED for now, no clinical seizures Problems: BANDAR CROWE MD Aug 29, 2016 15:42
[2016-08-29] MEDS: ENALAPRILAT 1.25 MG INJ IV PRN (17:30)
[2016-08-29] MEDS: DEXTROSE 5% IVPB SCH (17:31)
[2016-08-29] MEDS: PENICILLIN K IVPB SCH (17:31)
[2016-08-29 21:27] LABS: RAPID PLASMA REAGIN REACTIVE (NR)
[2016-08-30] VITALS (43 sets, daily range): BP systolic 84–178; BP diastolic 40–114; PULSE 78–105; RESP 15–36
[2016-08-30] MEDS: PENICILLIN K IVPB SCH ×4 (00:17→17:40)
[2016-08-30] MEDS: DEXTROSE 5% IVPB SCH ×4 (00:17→17:40)
[2016-08-30] MEDS: ALBUTEROL HFA 8 GM INHALER INH PRN ×3 (01:30→21:40)
[2016-08-30] MEDS: IPRATROPIUM (HFA) 12.9 GM INHALER INH PRN ×3 (01:30→21:40)
[2016-08-30 05:07] LABS: BASOPHILS % 0.4 % (0.0-2.0); EOSINOPHILS # 0.1 10^3/ul (0.0-0.5); EOSINOPHILS % 1.1 % (0.0-7.0); HEMATOCRIT 30.8 % (37.0-47.0); HEMOGLOBIN 10.3 g/dl (12.0-16.0); LYMPHOCYTES # 1.4 10^3/ul (0.8-2.9); LYMPHOCYTES % 15.4 % (15.0-51.0); MEAN CORPUSCULAR HEMOGLOBIN 32.3 pg (29.0-33.0); MEAN CORPUSCULAR HGB CONC 33.4 g/dl (32.0-37.0); MEAN CORPUSCULAR VOLUME 96.8 fl (82.0-101.0); MEAN PLATELET VOLUME 9.1 fl (7.4-10.4); MONOCYTES % 11.2 % (0.0-11.0); NEUTROPHIL # 6.4 10^3/ul (1.6-7.5); NEUTROPHILS % 71.9 % (39.0-77.0); PLATELET COUNT 268 10^3/UL (140-440); RED BLOOD COUNT 3.18 10^6/ul (4.20-5.40)
[2016-08-30 05:18] LABS: POTASSIUM 4.6 mmol/L (3.5-5.1)
[2016-08-30 05:20] LABS: CREATININE 2.58 mg/dl (0.44-1.00); MAGNESIUM 2.2 mg/dl (1.7-2.5); PHOSPHORUS 1.8 mg/dl (2.5-4.9)
[2016-08-30 05:34] LABS: CONDITION 1; LH ANALYZER COMMENTS 1; SUSPECT 1
[2016-08-30] MEDS: PHENYTOIN 100 MG INJ IV SCH ×3 (06:37→22:14)
[2016-08-30] MEDS: SEVELAMER CARBONATE 0.8 GM PKT PO SCH ×3 (07:48→17:40)
[2016-08-30] MEDS: LEVETIRACETAM IV 1,000 MG in SOD CHLORIDE 0.9% 100 ML IVPB SCH (09:12)
[2016-08-30] MEDS: COLLAGENASE 30 GM TUBE TOP SCH (09:13)
[2016-08-30] MEDS: METOPROLOL 25 MG TAB PO SCH ×2 (09:13→20:49)
[2016-08-30] MEDS: FAMOTIDINE 20 MG INJ IV SCH (09:14)
--- NOTE | 2016-08-30 09:18 | PN ---
Date/Time of Note Date/Time of Note DATE: 08/30/16 TIME: 09:13 Assessment/Plan VTE Prophylaxis VTE Prophylaxis Intervention: SCD's Lines/Catheters IV Catheter Type (from Nrs): Peripheral IV Central line still needed: No Urinary Cath still in place: No Assessment/Plan Assessment/Plan 71-year-old female with: 1. Seizures with acute and severe encephalopathy: Required intubation for airway protection. MRI negative and CT head negative but EEG c/w seizures RPR positive in April 2016 and apparently patient received 1 dose of PCN IM then and was supposed to get further outpatient treatment but unclear if was done LP today and will send VDRL and also repeat RPR Continue PCN for Neurosyphilis empirically until CSF studies back Off sedation and on Keppra for seizures, seems to be be the same today, opens eyes and seems to track a little and also per RN moving hands a little. 2. ?Sepsis, Urine cx with ESBL, continue Imipenem. Re-check urine cultures 3. Acute respiratory failure related to severe encephalopathy on admission. On Vent, stable MRI brain negative, EEG c/w seizures. Trial of extubation if MS keeps improving Pulmonary following. 3. Severe hypertension on admission. BP better but labile and targeting normotensive BP, now BP better and resuming BBlock at lower dose Continue Metoprolol and Vasotec prn for now. 4. End-stage renal disease. HD per schedule M//. Dr. Saldana following. 5. Hypokalemia. resolved now, adjusting with HD. Appreciate assistance from Dr Nash. 6. Anemia of chronic disease, stable H/H so far. 7. ESBL Urinary tract infection, on Imipenem now and on contact precautions. Plan to rx for 14 days total. Prophylaxis: Sequential compression devices to lower extremity for DVT prophylaxis and Pepcid for GI prophylaxis. DISPOSITION: ICU/Vent care, appreciate Neurology, Nephrology and Pulmonary follow up, LP today and rx for Neurosyphillis while awaiting VDRL Appreciate recommendations from Bioethics conference yesterday: consensus for DNR and LP Ok to be done, further decisions pending clinical course and Conservatorship application initiated . Subjective 24 Hr Interval Summary Free Text/Dictation No events overnight. Hd HD yesterday. Mental status essentially unchanged. Opens eyes with tactile stimuli. Exam/Review of Systems Vital Signs Vitals Vital Signs Date Time Temp Pulse Resp B/P Pulse Ox O2 Delivery O2 Flow Rate FiO2 08/30/16 08:00 87 18 133/80 100 Mechanical Ventilator 08/30/16 05:43 30 08/30/16 04:00 98.4 Intake and Output 08/29/16 08/29/16 08/30/16 15:00 23:00 07:00 Intake Total 884.5455 ml 450 ml 510 ml Output Total 2000 ml Balance -1115.4545 ml 450 ml 510 ml Exam Head: atraumatic, normocephalic Eyes: nl lids ENMT: nl external ears & nose Neck: supple Respiratory: clear to auscultation, diminished breath sounds Cardiovascular: regular rate and rhythm Gastrointestinal: soft Extremities: edema Results Result Diagram: 08/30/16 0400 08/30/16 0400 Results 24 hrs Laboratory Tests Test 08/29/16 09:30 08/30/16 04:00 CSF Appearance CLEAR CSF Cell Count Tube # TUBE#3 CSF Color COLORLESS CSF Crenated Cells CSF Glucose 61 CSF Lymphocytes % 0 CSF Monocytes % 0 CSF Neutrophils % 100 CSF RBC 0 CSF Total Cells Counted 100 CSF Total Protein 51 CSF Tubes Submitted 3 CSF Volume 3.5 CSF WBC 1 Anion Gap 11 Basophils # 0.0 Basophils % 0.4 Blood Morphology Comment Blood Urea Nitrogen 23 H Calcium Level 8.0 L Carbon Dioxide Level 31 Chloride Level 97 Creatinine 2.58 H Eosinophils # 0.1 Eosinophils % 1.1 Glucose Level 127 Hematocrit 30.8 L Hemoglobin 10.3 L Lymphocytes # 1.4 Lymphocytes % 15.4 Magnesium Level 2.2 Mean Corpuscular Hemoglobin 32.3 Mean Corpuscular Hemoglobin Concent 33.4 Mean Corpuscular Volume 96.8 Mean Platelet Volume 9.1 Monocytes # 1.0 H Monocytes % 11.2 H Neutrophils # 6.4 Neutrophils % 71.9 Nucleated Red Blood Cells # 0.0 Nucleated Red Blood Cells % 0.0 Phosphorus Level 1.8 L Platelet Count 268 Potassium Level 4.6 Red Blood Count 3.18 L Red Cell Distribution Width 17.0 H Sodium Level 134 L White Blood Count 9.0 Medications Medications Current Medications Ondansetron HCl (Zofran Inj) 4 mg Q6H PRN IV NAUSEA AND/OR VOMITING; Start 08/21 at 15:00 Acetaminophen (Tylenol Supp) 650 mg Q4H PRN [place] PAIN LEVEL 1-3 OR FEVER; Start 08/21/16 at 15:00 Enalaprilat (Vasotec Iv) 1.25 mg Q6H PRN IV ELEVATED SYSTOLIC BP Last administered on 08/29/16 17:30; Admin Dose 1.25 MG; Start 08/22/16 at 02:30 Famotidine (Pepcid Iv) 20 mg DAILY IV Last administered on 08/29/16 08:02; Admin Dose 20 MG; Start 08/22/16 at 10:30 Acetaminophen 650 mg 650 mg Q4H PRN NGT PAIN AND OR ELEVATED TEMP Last administered on 08/29/16 02:25; Admin Dose 650 MG; Start 08/22/16 at 17:30 Nicardipine HCl/ Dextrose (Cardene Iv/D5W) 250 ml @ 50 mls/hr TITRATE IV ; Start 08/22/16 at 20:00 Collagenase 1 applic 1 applic DAILY TOP Last administered on 08/29/16 09:02; Admin Dose 1 APPLIC; Start 08/23/16 at 20:00 Levetiracetam/ Sodium Chloride (Keppra Iv/NS) 110 ml @ 440 mls/hr AM IVPB Last administered on 08/29/16 08:02; Admin Dose 440 MLS/HR; Start 08/26/16 at 09:00 Hydralazine HCl (Apresoline) 25 mg Q6 PRN PO SBP above 160 Last administered on 08/29/16 02:26; Admin Dose 25 MG; Start 08/25/16 at 20:00 Phenytoin (Dilantin) 100 mg Q8 IV Last administered on 08/30/16 06:37; Admin Dose 100 MG; Start 08/26/16 at 06:00 Metoprolol Tartrate (Lopressor) 25 mg BID PO Last administered on 08/29/16 21: 32; Admin Dose 25 MG; Start 08/26/16 at 21:00 Captopril 6.25 mg 6.25 mg Q6H PRN PO PRN IF SBP ABOVE 160 MM OF HG Last administered on 08/29/16 04:05; Admin Dose 6.25 MG; Start 08/29/16 at 03:45 Penicillin G Potassium/Dextrose (Penicillin G K/ D5W) 100 ml @ 200 mls/hr Q6 IVPB Last administered on 08/30/16 06:37; Admin Dose 200 MLS/HR; Start at 18:00 VALERIA BETANCUR MD Aug 30, 2016 09:17
--- NOTE | 2016-08-30 10:07 | CONS ---
Date/Time of Note Date/Time of Note DATE: 08/30/16 TIME: 10:02 Consult Date/Type/Reason Admit Date/Time Aug 21, 2016 at 13:37 Initial Consult Date 08/21/16 Type of Consultation: Neph follow up Subjective No events overnight. Had HD yesterday. Mental status essentially unchanged. Opens eyes with tactile stimuli. remains critically ill, on full ventilatory support. No significant change. No other events noted. No hemoptysis, hematemesis or hematochezia. HEENT: Head is normocephalic. NECK: Supple. HEART: Regular rate. LUNGS: Showed diminished breath sounds at the base. ABDOMEN: Soft, nontender to palpation. No rebound or guarding. EXTREMITIES: Negative for clubbing or cyanosis. No edema. DERMATOLOGIC: No rashes. MUSCULOSKELETAL: Have no joint effusion. NEUROLOGIC: No change in exam. MEDICATIONS: The patient's medications have been reviewed. Objective Vital Signs Date Time Temp Pulse Resp B/P Pulse Ox O2 Delivery O2 Flow Rate FiO2 08/30/16 08:00 87 18 133/80 100 Mechanical Ventilator 08/30/16 05:43 30 08/30/16 04:00 98.4 Intake and Output 08/29/16 08/29/16 08/30/16 15:00 23:00 07:00 Intake Total 884.5455 ml 450 ml 510 ml Output Total 2000 ml Balance -1115.4545 ml 450 ml 510 ml Results/Medications Result Diagram: 08/30/16 0400 08/30/16 0400 Results 24 hrs Laboratory Tests Test 08/30/16 04:00 Anion Gap 11 Basophils # 0.0 Basophils % 0.4 Blood Morphology Comment Blood Urea Nitrogen 23 H Calcium Level 8.0 L Carbon Dioxide Level 31 Chloride Level 97 Creatinine 2.58 H Eosinophils # 0.1 Eosinophils % 1.1 Glucose Level 127 Hematocrit 30.8 L Hemoglobin 10.3 L Lymphocytes # 1.4 Lymphocytes % 15.4 Magnesium Level 2.2 Mean Corpuscular Hemoglobin 32.3 Mean Corpuscular Hemoglobin Concent 33.4 Mean Corpuscular Volume 96.8 Mean Platelet Volume 9.1 Monocytes # 1.0 H Monocytes % 11.2 H Neutrophils # 6.4 Neutrophils % 71.9 Nucleated Red Blood Cells # 0.0 Nucleated Red Blood Cells % 0.0 Phosphorus Level 1.8 L Platelet Count 268 Potassium Level 4.6 Red Blood Count 3.18 L Red Cell Distribution Width 17.0 H Sodium Level 134 L White Blood Count 9.0 Medications Current Medications Ondansetron HCl (Zofran Inj) 4 mg Q6H PRN IV NAUSEA AND/OR VOMITING; Start 08/21 at 15:00 Acetaminophen (Tylenol Supp) [address] PAIN LEVEL 1-3 OR FEVER; Start 08/21/16 at 15:00 Enalaprilat (Vasotec Iv) 1.25 mg Q6H PRN IV ELEVATED SYSTOLIC BP Last administered on 08/29/16 17:30; Admin Dose 1.25 MG; Start 08/22/16 at 02:30 Famotidine (Pepcid Iv) 20 mg DAILY IV Last administered on 08/30/16 09:14; Admin Dose 20 MG; Start 08/22/16 at 10:30 Acetaminophen 650 mg 650 mg Q4H PRN NGT PAIN AND OR ELEVATED TEMP Last administered on 08/29/16 02:25; Admin Dose 650 MG; Start 08/22/16 at 17:30 Nicardipine HCl/ Dextrose (Cardene Iv/D5W) 250 ml @ 50 mls/hr TITRATE IV ; Start 08/22/16 at 20:00 Collagenase 1 applic 1 applic DAILY TOP Last administered on 08/30/16 09:13; Admin Dose 1 APPLIC; Start 08/23/16 at 20:00 Levetiracetam/ Sodium Chloride (Keppra Iv/NS) 110 ml @ 440 mls/hr AM IVPB Last administered on 08/30/16 09:12; Admin Dose 440 MLS/HR; Start 08/26/16 at 09:00 Hydralazine HCl (Apresoline) 25 mg Q6 PRN PO SBP above 160 Last administered on 08/29/16 02:26; Admin Dose 25 MG; Start 08/25/16 at 20:00 Phenytoin (Dilantin) 100 mg Q8 IV Last administered on 08/30/16 06:37; Admin Dose 100 MG; Start 08/26/16 at 06:00 Metoprolol Tartrate (Lopressor) 25 mg BID PO Last administered on 08/30/16 09: 13; Admin Dose 25 MG; Start 2/14/17 at 21:00 Captopril 6.25 mg 6.25 mg Q6H PRN PO PRN IF SBP ABOVE 160 MM OF HG Last administered on 08/29/16 04:05; Admin Dose 6.25 MG; Start 08/29/16 at 03:45 Penicillin G Potassium/Dextrose (Penicillin G K/ D5W) 100 ml @ 200 mls/hr Q6 IVPB Last administered on 08/30/16 06:37; Admin Dose 200 MLS/HR; Start at 18:00 Assessment/Plan Chief Complaint/Hosp Course 1. End-stage renal disease. Plan for hemodialysis tomorrow for 3 hours on a 3K bath, calcium 2.5. 2. Mineral bone disorder. The patient is hypophosphatemic. Will replete with potassium phosphate of 20 mEq IV x1. 3. Anemia. Continue Epogen following dialysis. 4. Ventilatory-dependent respiratory failure. Vent settings have been reviewed. Continue to monitor. Follow up with pulmonary. Attempt weaning per pulmonary. 5. Acute encephalopathy and dementia. Etiology is toxic metabolic. Continue to monitor. Neurology is following. 6. Seizure disorder. Continue Keppra. 7. Hypertension. Blood pressure is controlled. Continue ultrafiltration with dialysis. 8. Coronary artery disease. Continue medical management. 9. Urinary tract infection. The patient is on antibiotic therapy. Continue. Problems: HARSH TRINIDAD MD Aug 30, 2016 10:07
--- NOTE | 2016-08-30 14:37 | RADRPT ---
PROCEDURE: XR Chest. CLINICAL INDICATION: Altered level of consciousness. Orogastric tube placement assessment. TECHNIQUE: Single frontal view of the chest was obtained COMPARISON: Chest x-ray 08/24/2016. FINDINGS: The NG tube is identified in place with its tip of the field of view somewhere distal to the GE junc tion. An NG tube tube is positioned at T4. Vascular calcifications are present aortic arch. There is atelectasis or scarring in the medial aspect of the left lower lobe with tenting of the left lily phragm. No pleural effusion is identified. The bony elements are rarefied with degenerative change s in the thoracic spine. IMPRESSION: 1. The endotracheal tube is well positioned at T4. 2. The NG tube is positioned distal to the GE junction. 3. Spondylosis of the thoracic spine. 4. Atherosclerosis and ectasia of the thoracic aorta. 5. There is no evidence of active cardiopulmonary disease. RPTAT:AAJJ Physician Gilma Date Time Electronically viewed and signed by Physician Gilma on 08/30/2016 14:37 [place]/
[2016-08-30 18:00] LABS: VDRL, CSF NON-REACTIVE (NON-REACTIVE)
--- NOTE | 2016-08-30 18:03 | CONS ---
Date/Time of Note Date/Time of Note DATE: 08/30/16 TIME: 18:01 Consult Date/Type/Reason Admit Date/Time Aug 21, 2016 at 13:37 Initial Consult Date 08/21/16 Type of Consultation: Pulm Subjective No events on mechanical vent. Objective Vital Signs Date Time Temp Pulse Resp B/P Pulse Ox O2 Delivery O2 Flow Rate FiO2 08/30/16 16:00 30 08/30/16 16:00 98.6 88 23 170/108 100 Mechanical Ventilator Intake and Output 08/29/16 08/29/16 08/30/16 15:00 23:00 07:00 Intake Total 884.5455 ml 450 ml 540 ml Output Total 2000 ml Balance -1115.4545 ml 450 ml 540 ml HEENT: Neck supple; no JVD; no LAD CVS: RRR, S1 and S2 CHEST: Clear ABD: Soft, NT, + BS EXT: No c/c/ + edema Results/Medications Result Diagram: 08/30/16 0400 08/30/16 0400 Results 24 hrs Laboratory Tests Test 08/30/16 04:00 Anion Gap 11 Basophils # 0.0 Basophils % 0.4 Blood Morphology Comment Blood Urea Nitrogen 23 H Calcium Level 8.0 L Carbon Dioxide Level 31 Chloride Level 97 Creatinine 2.58 H Eosinophils # 0.1 Eosinophils % 1.1 Glucose Level 127 Hematocrit 30.8 L Hemoglobin 10.3 L Lymphocytes # 1.4 Lymphocytes % 15.4 Magnesium Level 2.2 Mean Corpuscular Hemoglobin 32.3 Mean Corpuscular Hemoglobin Concent 33.4 Mean Corpuscular Volume 96.8 Mean Platelet Volume 9.1 Monocytes # 1.0 H Monocytes % 11.2 H Neutrophils # 6.4 Neutrophils % 71.9 Nucleated Red Blood Cells # 0.0 Nucleated Red Blood Cells % 0.0 Phosphorus Level 1.8 L Platelet Count 268 Potassium Level 4.6 Red Blood Count 3.18 L Red Cell Distribution Width 17.0 H Sodium Level 134 L White Blood Count 9.0 Medications Current Medications Ondansetron HCl (Zofran Inj) 4 mg Q6H PRN IV NAUSEA AND/OR VOMITING; Start 08/21 at 15:00 Acetaminophen (Tylenol Supp) 650 mg Q4H PRN [place] PAIN LEVEL 1-3 OR FEVER; Start 08/21/16 at 15:00 Enalaprilat (Vasotec Iv) 1.25 mg Q6H PRN IV ELEVATED SYSTOLIC BP Last administered on 08/29/16 17:30; Admin Dose 1.25 MG; Start 08/22/16 at 02:30 Famotidine (Pepcid Iv) 20 mg DAILY IV Last administered on 08/30/16 09:14; Admin Dose 20 MG; Start 08/22/16 at 10:30 Acetaminophen 650 mg 650 mg Q4H PRN NGT PAIN AND OR ELEVATED TEMP Last administered on 08/29/16 02:25; Admin Dose 650 MG; Start 08/22/16 at 17:30 Nicardipine HCl/ Dextrose (Cardene Iv/D5W) 250 ml @ 50 mls/hr TITRATE IV ; Start 08/22/16 at 20:00 Collagenase 1 applic 1 applic DAILY TOP Last administered on 08/30/16 09:13; Admin Dose 1 APPLIC; Start 08/23/16 at 20:00 Levetiracetam/ Sodium Chloride (Keppra Iv/NS) 110 ml @ 440 mls/hr AM IVPB Last administered on 08/30/16 09:12; Admin Dose 440 MLS/HR; Start 08/26/16 at 09:00 Hydralazine HCl (Apresoline) 25 mg Q6 PRN PO SBP above 160 Last administered on 08/30/16 15:45; Admin Dose 25 MG; Start 08/25/16 at 20:00 Phenytoin (Dilantin) 100 mg Q8 IV Last administered on 08/30/16 13:49; Admin Dose 100 MG; Start 08/26/16 at 06:00 Metoprolol Tartrate (Lopressor) 25 mg BID PO Last administered on 08/30/16 09: 13; Admin Dose 25 MG; Start 08/26/16 at 21:00 Captopril 6.25 mg 6.25 mg Q6H PRN PO PRN IF SBP ABOVE 160 MM OF HG Last administered on 08/30/16 17:36; Admin Dose 6.25 MG; Start 08/29/16 at 03:45 Penicillin G Potassium/Dextrose (Penicillin G K/ D5W) 100 ml @ 200 mls/hr Q6 IVPB Last administered on 08/30/16 17:40; Admin Dose 200 MLS/HR; Start at 18:00 Assessment/Plan Additional Assessment/Plan IMPRESSION: 1. Respiratory Failure/Vent Dependence 2. Renal Failure 3. AMS-etiology not entirely clear. Remains minimally responsive off propofol gtt 4. HTN Crisis 5. Anemia RECS: 1. LP results noted 2. Vent support 3. HD/UF 4. CXR/ABG 35 min cc time LINDA HUNG MD Aug 30, 2016 18:03
[2016-08-30] MEDS: ACETAMINOPHEN 650MG/20.3ML CUP NGT PRN (20:49)
[2016-08-31] VITALS (77 sets, daily range): BP systolic 54–186; BP diastolic 29–117; PULSE 79–132; RESP 19–33
[2016-08-31] MEDS: PENICILLIN K IVPB SCH ×5 (00:24→23:44)
[2016-08-31] MEDS: DEXTROSE 5% IVPB SCH ×5 (00:24→23:44)
[2016-08-31] MEDS: IPRATROPIUM (HFA) 12.9 GM INHALER INH PRN ×2 (04:28→23:50)
[2016-08-31] MEDS: ALBUTEROL HFA 8 GM INHALER INH PRN ×2 (04:28→23:50)
[2016-08-31 05:10] LABS: AADO2 Arterial 46.1 mmHg (7.0-24.0); Allen Test ACCEPTAB; Arterial Base Excess 0 mmol/L (-3.0-3); Arterial COHb 0.3 % (0.0-3.0); Arterial HCO3 23.1 mmol/L (22.0-26.0); Arterial MetHb 0.2 % (0.0-1.5)
[2016-08-31] MEDS: PHENYTOIN 100 MG INJ IV SCH ×3 (06:19→22:18)
[2016-08-31] MEDS: SEVELAMER CARBONATE 0.8 GM PKT PO SCH ×3 (07:35→17:35)
[2016-08-31] MEDS: FAMOTIDINE 20 MG INJ IV SCH (09:00)
[2016-08-31] MEDS: COLLAGENASE 30 GM TUBE TOP SCH (09:00)
[2016-08-31] MEDS: LEVETIRACETAM IV 1,000 MG in SOD CHLORIDE 0.9% 100 ML IVPB SCH (09:00)
[2016-08-31] MEDS: METOPROLOL 25 MG TAB PO SCH ×2 (09:45→21:00)
--- NOTE | 2016-08-31 10:08 | CONS ---
Date/Time of Note Date/Time of Note DATE: 08/31/16 TIME: 10:07 Consult Date/Type/Reason Admit Date/Time Aug 21, 2016 at 13:37 Initial Consult Date 08/21/16 Type of Consultation: Pulm Subjective No events overnight. On hd today. Mental status essentially unchanged. Opens eyes with tactile stimuli. remains critically ill, on full ventilatory support. No significant change. No other events noted. No hemoptysis, hematemesis or hematochezia. HEENT: Head is normocephalic. NECK: Supple. HEART: Regular rate. LUNGS: Showed diminished breath sounds at the base. ABDOMEN: Soft, nontender to palpation. No rebound or guarding. EXTREMITIES: Negative for clubbing or cyanosis. No edema. DERMATOLOGIC: No rashes. MUSCULOSKELETAL: Have no joint effusion. NEUROLOGIC: No change in exam. MEDICATIONS: The patient's medications have been reviewed. Objective Vital Signs Date Time Temp Pulse Resp B/P Pulse Ox O2 Delivery O2 Flow Rate FiO2 08/31/16 06:49 80 23 103/79 08/31/16 05:53 100 30 08/31/16 03:41 97.7 08/31/16 00:12 Mechanical Ventilator Intake and Output 08/30/16 08/30/16 08/31/16 15:00 23:00 07:00 Intake Total 480 ml 460 ml 380 ml Output Total 0 ml 0 ml Balance 480 ml 460 ml 380 ml Results/Medications Result Diagram: 08/30/16 0400 08/30/16 0400 Results 24 hrs Laboratory Tests Test 08/31/16 05:00 Arterial Blood HCO3 23.1 Arterial Blood Base Excess 0 Arterial Blood Oxygen Saturation 98.5 Kristopher Test ACCEPTAB Arterial Blood Gas Puncture Site Right Radial Arterial Blood Carboxyhemoglobin 0.3 Arterial Blood Date Drawn 08/31/2016 4:57:33 AM Arterial Blood Methemoglobin 0.2 Arterial Blood pCO2 (Temp correct) 32.9 L Arterial Blood pH (Temp corrected) 7.465 H Arterial Blood pO2 (Temp corrected) 129.1 H Blood Gas A-a O2 Differential 46.1 H Blood Gas Actual Respiration Rate 24 Blood Gas Inspiratory Pressure 26.0 Blood Gas Low PEEP Setting 5.0 Blood Gas Modality vent-ac Blood Gas Notified Time 08/31/2016 5:10:25 AM Blood Gas Notified Whom jmd Blood Gas Respiration Rate 14.0 Blood Gas Specimen Source Blood arterial Blood Gas Temperature 37.0 Blood Gas Tidal Volume 350.0 FiO2 30.0 Oxyhemoglobin Percent 98.0 Total Hemoglobin 12.0 Medications Current Medications Ondansetron HCl (Zofran Inj) 4 mg Q6H PRN IV NAUSEA AND/OR VOMITING; Start 08/21 at 15:00 Acetaminophen (Tylenol Supp) 650 mg Q4H PRN [place] PAIN LEVEL 1-3 OR FEVER; Start 08/21/16 at 15:00 Enalaprilat (Vasotec Iv) 1.25 mg Q6H PRN IV ELEVATED SYSTOLIC BP Last administered on 08/29/16 17:30; Admin Dose 1.25 MG; Start 08/22/16 at 02:30 Famotidine (Pepcid Iv) 20 mg DAILY IV Last administered on 08/30/16 09:14; Admin Dose 20 MG; Start 08/22/16 at 10:30 Acetaminophen 650 mg 650 mg Q4H PRN NGT PAIN AND OR ELEVATED TEMP Last administered on 08/30/16 20:49; Admin Dose 650 MG; Start 08/22/16 at 17:30 Nicardipine HCl/ Dextrose (Cardene Iv/D5W) 250 ml @ 50 mls/hr TITRATE IV ; Start 08/22/16 at 20:00 Collagenase 1 applic 1 applic DAILY TOP Last administered on 08/30/16 09:13; Admin Dose 1 APPLIC; Start 08/23/16 at 20:00 Levetiracetam/ Sodium Chloride (Keppra Iv/NS) 110 ml @ 440 mls/hr AM IVPB Last administered on 08/30/16 09:12; Admin Dose 440 MLS/HR; Start 08/26/16 at 09:00 Hydralazine HCl (Apresoline) 25 mg Q6 PRN PO SBP above 160 Last administered on 08/30/16 15:45; Admin Dose 25 MG; Start 08/25/16 at 20:00 Phenytoin (Dilantin) 100 mg Q8 IV Last administered on 08/31/16 06:19; Admin Dose 100 MG; Start 08/26/16 at 06:00 Metoprolol Tartrate (Lopressor) 25 mg BID PO Last administered on 08/30/16 20: 49; Admin Dose 25 MG; Start 08/26/16 at 21:00 Captopril 6.25 mg 6.25 mg Q6H PRN PO PRN IF SBP ABOVE 160 MM OF HG Last administered on 08/30/16 17:36; Admin Dose 6.25 MG; Start 08/29/16 at 03:45 Penicillin G Potassium/Dextrose (Penicillin G K/ D5W) 100 ml @ 200 mls/hr Q6 IVPB Last administered on 08/31/16 06:30; Admin Dose 200 MLS/HR; Start at 18:00 Assessment/Plan Chief Complaint/Hosp Course 1. End-stage renal disease. Plan for hemodialysis tomorrow for 3 hours on a 3K bath, calcium 2.5. 2. Mineral bone disorder. The patient is hypophosphatemic. Will replete with potassium phosphate of 20 mEq IV x1. 3. Anemia. Continue Epogen following dialysis. 4. Ventilatory-dependent respiratory failure. Vent settings have been reviewed. Continue to monitor. Follow up with pulmonary. Attempt weaning per pulmonary. 5. Acute encephalopathy and dementia. Etiology is toxic metabolic. Continue to monitor. Neurology is following. 6. Seizure disorder. Continue Keppra. 7. Hypertension. Blood pressure is controlled. Continue ultrafiltration with dialysis. 8. Coronary artery disease. Continue medical management. 9. Urinary tract infection. The patient is on antibiotic therapy. Continue. Problems: HARSH TRINIDAD MD Aug 31, 2016 10:08
[2016-08-31 10:46] LABS: HEMATOCRIT 36.7 % (37.0-47.0); MEAN CORPUSCULAR HGB CONC 32.7 g/dl (32.0-37.0); MEAN CORPUSCULAR VOLUME 97.7 fl (82.0-101.0); MEAN PLATELET VOLUME 9.2 fl (7.4-10.4); PLATELET COUNT 208 10^3/UL (140-440); RED BLOOD COUNT 3.75 10^6/ul (4.20-5.40); RED CELL DISTRIBUTION WIDTH 17.5 % (11.5-14.5); UNCORRECTED WBC 28.3 10^3/ul (4.8-10.8); WHITE BLOOD COUNT 28.3 10^3/ul (4.8-10.8)
[2016-08-31 10:59] LABS: CONDITION 1; LH ANALYZER COMMENTS 1; SUSPECT 1
--- NOTE | 2016-08-31 11:11 | PN ---
Date/Time of Note Date/Time of Note DATE: 08/31/16 TIME: 11:05 Assessment/Plan VTE Prophylaxis VTE Prophylaxis Intervention: SCD's Lines/Catheters IV [facility]from [facility] Peripheral IV Urinary Cath still in place: No Assessment/Plan Assessment/Plan 71-year-old female with: 1. Seizures with acute and severe encephalopathy: Mental status essentially unchanged. The CSF-VDRL was negative. Required intubation for airway protection. MRI negative and CT head negative but EEG c/w seizures Will d/w team if continuing PCN for Neurosyphilis is medically indicated Off sedation and on Keppra for seizures, seems to be be the same today, opens eyes and seems to track a little and also per RN moving hands a little. Re-check dilantin level 2. ?Sepsis, Urine cx with ESBL, continue Imipenem. Re-check urine cultures 3. Acute respiratory failure related to severe encephalopathy on admission. On Vent, stable MRI brain negative, EEG c/w seizures. Trial of extubation if MS keeps improving Pulmonary following. 3. Severe hypertension on admission. BP better but labile and targeting normotensive BP, now BP better and resuming BBlock at lower dose Continue Metoprolol and Vasotec prn for now. 4. End-stage renal disease. HD per schedule M/W/. Dr. Saldana following. 5. Hypophosphatemia. resolving with replacement, adjusting with HD. Appreciate assistance from Dr Nash. 6. Anemia of chronic disease, stable H/H so far. 7. ESBL Urinary tract infection, on Imipenem now and on contact precautions. Plan to rx for 14 days total. Prophylaxis: SCD's to lower extremity for DVT prophylaxis and Pepcid for GI prophylaxis. DISPOSITION: ICU/Vent care, appreciate Neurology, Nephrology and Pulmonary follow up, LP today and rx for Neurosyphillis while awaiting VDRL Appreciate recommendations from Bioethics conference yesterday: consensus for DNR and LP Ok to be done, further decisions pending clinical course and Conservatorship application initiated . Subjective 24 Hr Interval Summary Free Text/Dictation No events overnight. Mental status is the same. She is still somewhat arousable to tactile stimuli. Exam/Review of Systems Vital Signs Vitals Vital Signs Date Time Temp Pulse Resp B/P Pulse Ox O2 Delivery O2 Flow Rate FiO2 08/31/16 09:10 84 22 100 30 08/31/16 06:49 103/79 08/31/16 03:41 97.7 08/31/16 00:12 Mechanical Ventilator Intake and Output 08/30/16 08/30/16 08/31/16 14:59 22:59 06:59 Intake Total 610 ml 430 ml 410 ml Output Total 0 ml 0 ml Balance 610 ml 430 ml 410 ml Exam Constitutional: other (intubated) Psych: no complaints ENMT: nl external ears & nose Neck: supple Respiratory: clear to auscultation Cardiovascular: regular rate and rhythm Gastrointestinal: soft Extremities: normal pulses Neurological: other (responsive to tactile stimuli) Results Result Diagram: 08/31/16 1030 08/30/16 0400 Results 24 hrs Laboratory Tests Test 08/31/16 05:00 08/31/16 10:30 Arterial Blood HCO3 23.1 Arterial Blood Base Excess 0 Arterial Blood Oxygen Saturation 98.5 Kristopher Test ACCEPTAB Arterial Blood Gas Puncture Site Right Radial Arterial Blood Carboxyhemoglobin 0.3 Arterial Blood Date Drawn 08/31/2016 4:57:33 AM Arterial Blood Methemoglobin 0.2 Arterial Blood pCO2 (Temp correct) 32.9 L Arterial Blood pH (Temp corrected) 7.465 H Arterial Blood pO2 (Temp corrected) 129.1 H Blood Gas A-a O2 Differential 46.1 H Blood Gas Actual Respiration Rate 24 Blood Gas Inspiratory Pressure 26.0 Blood Gas Low PEEP Setting 5.0 Blood Gas Modality vent-ac Blood Gas Notified Time 08/31/2016 5:10:25 AM Blood Gas Notified Whom jmd Blood Gas Respiration Rate 14.0 Blood Gas Specimen Source Blood arterial Blood Gas Temperature 37.0 Blood Gas Tidal Volume 350.0 FiO2 30.0 Oxyhemoglobin Percent 98.0 Total Hemoglobin 12.0 Basophils # 0.0 Basophils % 0.0 Blood Morphology Comment Eosinophils # 0.0 Eosinophils % 0.0 Hematocrit 36.7 L Hemoglobin 12.0 Lactic Acid Level 6.4 *H Lymphocytes # 0.8 Lymphocytes % 2.8 L Mean Corpuscular Hemoglobin 32.0 Mean Corpuscular Hemoglobin Concent 32.7 Mean Corpuscular Volume 97.7 Mean Platelet Volume 9.2 Monocytes # 0.7 Monocytes % 2.6 Neutrophils # 26.8 H Neutrophils % 94.6 H Nucleated Red Blood Cells # 0.0 Nucleated Red Blood Cells % 0.0 Platelet Count 208 # Red Blood Count 3.75 L Red Cell Distribution Width 17.5 H White Blood Count 28.3 #H Medications Medications Current Medications Ondansetron HCl (Zofran Inj) 4 mg Q6H PRN IV NAUSEA AND/OR VOMITING; Start 08/21 at 15:00 Acetaminophen (Tylenol Supp) [address] PAIN LEVEL 1-3 OR FEVER; Start 08/21/16 at 15:00 Enalaprilat (Vasotec Iv) 1.25 mg Q6H PRN IV ELEVATED SYSTOLIC BP Last administered on 08/29/16 17:30; Admin Dose 1.25 MG; Start 08/22/16 at 02:30 Famotidine (Pepcid Iv) 20 mg DAILY IV Last administered on 08/30/16 09:14; Admin Dose 20 MG; Start 08/22/16 at 10:30 Acetaminophen 650 mg 650 mg Q4H PRN NGT PAIN AND OR ELEVATED TEMP Last administered on 08/30/16 20:49; Admin Dose 650 MG; Start 08/22/16 at 17:30 Nicardipine HCl/ Dextrose (Cardene Iv/D5W) 250 ml @ 50 mls/hr TITRATE IV ; Start 08/22/16 at 20:00 Collagenase 1 applic 1 applic DAILY TOP Last administered on 08/30/16 09:13; Admin Dose 1 APPLIC; Start 08/23/16 at 20:00 Levetiracetam/ Sodium Chloride (Keppra Iv/NS) 110 ml @ 440 mls/hr AM IVPB Last administered on 08/30/16 09:12; Admin Dose 440 MLS/HR; Start 08/26/16 at 09:00 Hydralazine HCl (Apresoline) 25 mg Q6 PRN PO SBP above 160 Last administered on 08/30/16 15:45; Admin Dose 25 MG; Start 08/25/16 at 20:00 Phenytoin (Dilantin) 100 mg Q8 IV Last administered on 08/31/16 06:19; Admin Dose 100 MG; Start 08/26/16 at 06:00 Metoprolol Tartrate (Lopressor) 25 mg BID PO Last administered on 08/30/16 20: 49; Admin Dose 25 MG; Start 08/26/16 at 21:00 Captopril 6.25 mg 6.25 mg Q6H PRN PO PRN IF SBP ABOVE 160 MM OF HG Last administered on 08/30/16 17:36; Admin Dose 6.25 MG; Start 08/29/16 at 03:45 Penicillin G Potassium/Dextrose (Penicillin G K/ D5W) 100 ml @ 200 mls/hr Q6 IVPB Last administered on 08/31/16 06:30; Admin Dose 200 MLS/HR; Start at 18:00 VALERIA BETANCUR MD Aug 31, 2016 11:11
[2016-08-31 11:49] LABS: LYMPHOCYTES # 0.6 10^3/ul (0.8-2.9); MONOCYTE # 0.6 10^3/ul (0.3-0.9); NEUTROPHIL # 24.1 10^3/ul (1.6-7.5)
[2016-08-31 16:31] LABS: ALBUMIN 2.7 g/dl (3.3-4.9)
[2016-08-31 16:33] LABS: CREATININE 4.09 mg/dl (0.44-1.00)
[2016-08-31 16:34] LABS: CALCIUM 8.4 mg/dl (8.4-10.2); PHOSPHORUS 2.8 mg/dl (2.5-4.9)
[2016-08-31 16:39] LABS: POTASSIUM 6.4 mmol/L (3.5-5.1)
--- NOTE | 2016-08-31 16:57 | CONS ---
Date/Time of Note Date/Time of Note DATE: 08/31/16 TIME: 16:54 Consult Date/Type/Reason Admit Date/Time Aug 21, 2016 at 13:37 Initial Consult Date 08/21/16 Type of Consultation: Pulm Subjective No events. Not responsive. Grimaces to painful stimuli. Objective Vital Signs Date Time Temp Pulse Resp B/P Pulse Ox O2 Delivery O2 Flow Rate FiO2 08/31/16 16:48 112 08/31/16 15:45 24 08/31/16 11:05 100 30 08/31/16 06:49 103/79 08/31/16 03:41 97.7 08/31/16 00:12 Mechanical Ventilator Intake and Output 08/30/16 08/30/16 08/31/16 15:00 23:00 07:00 Intake Total 480 ml 460 ml 380 ml Output Total 0 ml 0 ml Balance 480 ml 460 ml 380 ml HEENT: Neck supple; no JVD; no LAD CVS: RRR, S1 and S2 CHEST: Clear ABD: Soft, NT, + BS EXT: No c/c/ + edema Results/Medications Result Diagram: 08/31/16 1030 08/31/16 1610 Results 24 hrs Laboratory Tests Test 08/31/16 05:00 08/31/16 10:30 08/31/16 16:10 Arterial Blood HCO3 23.1 Arterial Blood Base Excess 0 Arterial Blood Oxygen Saturation 98.5 Kristopher Test ACCEPTAB Arterial Blood Gas Puncture Site Right Radial Arterial Blood Carboxyhemoglobin 0.3 Arterial Blood Date Drawn 08/31/2016 4:57:33 AM Arterial Blood Methemoglobin 0.2 Arterial Blood pCO2 (Temp correct) 32.9 L Arterial Blood pH (Temp corrected) 7.465 H Arterial Blood pO2 (Temp corrected) 129.1 H Blood Gas A-a O2 Differential 46.1 H Blood Gas Actual Respiration Rate 24 Blood Gas Inspiratory Pressure 26.0 Blood Gas Low PEEP Setting 5.0 Blood Gas Modality vent-ac Blood Gas Notified Time 08/31/2016 5:10:25 AM Blood Gas Notified Whom jmd Blood Gas Respiration Rate 14.0 Blood Gas Specimen Source Blood arterial Blood Gas Temperature 37.0 Blood Gas Tidal Volume 350.0 FiO2 30.0 Oxyhemoglobin Percent 98.0 Total Hemoglobin 12.0 Band Neutrophils % 11.0 H Basophils # Basophils % Blood Morphology Comment Differential Comment MANUAL DIFF Eosinophils # Eosinophils % Hematocrit 36.7 L Hemoglobin 12.0 Lactic Acid Level 6.4 *H Lymphocytes # 0.6 L Lymphocytes % 2.0 L Mean Corpuscular Hemoglobin 32.0 Mean Corpuscular Hemoglobin Concent 32.7 Mean Corpuscular Volume 97.7 Mean Platelet Volume 9.2 Monocytes # 0.6 Monocytes % 2.0 Neutrophils # 24.1 H Neutrophils % 85.0 H Nucleated Red Blood Cells # Nucleated Red Blood Cells % Platelet Count 208 # Red Blood Count 3.75 L Red Cell Distribution Width 17.5 H White Blood Count 28.3 #H Albumin 2.7 L Anion Gap 16 Blood Urea Nitrogen 42 #H Calcium Level 8.4 Carbon Dioxide Level 26 Chloride Level 95 L Creatinine 4.09 #H Glucose Level 136 Phosphorus Level 2.8 Potassium Level 6.4 *H Sodium Level 131 L Medications Current Medications Ondansetron HCl (Zofran Inj) 4 mg Q6H PRN IV NAUSEA AND/OR VOMITING; Start 08/21 at 15:00 Acetaminophen (Tylenol Supp) 650 mg Q4H PRN MT PAIN LEVEL 1-3 OR FEVER; Start 08/21/16 at 15:00 Enalaprilat (Vasotec Iv) 1.25 mg Q6H PRN IV ELEVATED SYSTOLIC BP Last administered on 08/29/16 17:30; Admin Dose 1.25 MG; Start 08/22/16 at 02:30 Famotidine (Pepcid Iv) 20 mg DAILY IV Last administered on 08/30/16 09:14; Admin Dose 20 MG; Start 08/22/16 at 10:30 Acetaminophen 650 mg 650 mg Q4H PRN NGT PAIN AND OR ELEVATED TEMP Last administered on 08/30/16 20:49; Admin Dose 650 MG; Start 08/22/16 at 17:30 Nicardipine HCl/ Dextrose (Cardene Iv/D5W) 250 ml @ 50 mls/hr TITRATE IV ; Start 08/22/16 at 20:00 Collagenase 1 applic 1 applic DAILY TOP Last administered on 08/30/16 09:13; Admin Dose 1 APPLIC; Start 08/23/16 at 20:00 Levetiracetam/ Sodium Chloride (Keppra Iv/NS) 110 ml @ 440 mls/hr AM IVPB Last administered on 08/30/16 09:12; Admin Dose 440 MLS/HR; Start 08/26/16 at 09:00 Hydralazine HCl (Apresoline) 25 mg Q6 PRN PO SBP above 160 Last administered on 08/30/16 15:45; Admin Dose 25 MG; Start 08/25/16 at 20:00 Phenytoin (Dilantin) 100 mg Q8 IV Last administered on 08/31/16 06:19; Admin Dose 100 MG; Start 08/26/16 at 06:00 Metoprolol Tartrate (Lopressor) 25 mg BID PO Last administered on 08/30/16 20: 49; Admin Dose 25 MG; Start 08/26/16 at 21:00 Captopril 6.25 mg 6.25 mg Q6H PRN PO PRN IF SBP ABOVE 160 MM OF HG Last administered on 08/30/16 17:36; Admin Dose 6.25 MG; Start 08/29/16 at 03:45 Penicillin G Potassium/Dextrose (Penicillin G K/ D5W) 100 ml @ 200 mls/hr Q6 IVPB Last administered on 08/31/16 06:30; Admin Dose 200 MLS/HR; Start at 18:00 Assessment/Plan Additional Assessment/Plan IMPRESSION: 1. Respiratory Failure/Vent Dependence 2. Hypotension/Leukocytosis--possibly early sepsis 3. AMS-etiology not entirely clear. Remains minimally responsive off propofol gtt 4. HTN Crisis 5. Anemia RECS: 1. Consider broadening abx 2. Vent support 3. HD/UF 4. Tracheostomy may be reasonable 5. Panculture 35 min cc time LINDA HUNG MD Aug 31, 2016 16:57
[2016-08-31] MEDS ORDERED: ALBUMIN HUMAN 25% 100 ML ONE (17:16)
[2016-08-31] MEDS ORDERED: ALBUMIN HUMAN 25% 100 ML IV ONE (17:30)
[2016-09-01] VITALS (13 sets, daily range): BP systolic 0–128; BP diastolic 39–60; PULSE 0–124; RESP 0–34
[2016-09-01] MEDS: IPRATROPIUM (HFA) 12.9 GM INHALER INH PRN (04:26)
[2016-09-01] MEDS: ALBUTEROL HFA 8 GM INHALER INH PRN (04:26)
--- NOTE | 2016-09-01 07:21 | RADRPT ---
PROCEDURE: XR Chest 1 View. CLINICAL INDICATION: Shortness of breath, ventilated TECHNIQUE: AP view of the chest were obtained. COMPARISON: August 30, 2016 FINDINGS: The heart size is within normal limits. Calcified atherosclerosis is noted in the aorta. Endotrache al and nasogastric tubes are stable and appear in grossly appropriate location. Retrocardiac opacit y is unchanged. The osseous structures are osteopenic, but appear grossly intact. Degenerative medina ges are identified in the shoulders. IMPRESSION: Calcified atherosclerosis in the aorta. Stable retrocardiac opacity that may reflect left lower lobe atelectasis or infiltrate combined with small pleural effusion. RPTAT: AA .Talha Nguyen MD, MD Date Time Electronically viewed and signed by .Talha Nguyen MD, on 09/01/2016 07:21 .P/
--- NOTE | 2016-09-01 21:29 | DES ---
DATE OF ADMISSION: 08/21/2016 DATE OF : 09/01/2016 CAUSE OF : Severe bradycardia and asystole at approximately 4:27 a.m. The patient was deemed a DO NOT RESUSCITATE candidate by ethics committee on . ASSOCIATED DIAGNOSES: 1. End-stage renal disease on hemodialysis. 2. Severe encephalopathy secondary to seizures. 3. Hypertension. 4. Extended-spectrum beta-lactamase urinary tract infection. HOSPITAL COURSE: The patient is a 71-year-old female with multiple medical problems who presented to the emergency department on 08/21/2016 with acute encephalopathy. She was immediately intubated, and my associate, Dr. Molly Lu , admitted her. The patient had a Juan Coma Scale of 4 and was also severely hypertensive. She was immediately started on a Cardene drip for hypertension, and her workup revealed an ESBL urinary tract infection. She was started on the appropriate antibiotics once cultures became available, and the antibiotics were tailored to treat this infection. The patient remained intubated as she was encephalopathic throughout her stay. Through tactile stimuli, she was able to open her eyes transiently. However, she was never awake enough to open her eyes, follow commands or track. Physician consultations were obtained by Dr. Saldana for hemodialysis and Dr. Primitivo Bhat for Neurology. Furthermore, Dr. Bhandari evaluated the patient for ventilator management. The patient had an MRI and a CT scan of the brain, none of which revealed any acute causes for her encephalopathy. She subsequently did have an EEG on approximately 08/25/2016 that was consistent with seizure activity. The patient was started on Dilantin and Keppra subsequently. A repeat EEG was initiated on 08/28, and although there was no evidence of ongoing seizures, there were triphasic sharp waves, and for this reason, Dr. Primitivo Bhat recommended continuing the medications. Throughout this time of her entire hospitalization, the patient remained intubated and responsive only to tactile stimuli. Her [place] Coma Scale really did not improve at all. She remained critically ill and had multisystem organ failure. The patient had sons in [facility]. However, there has been no contact for approximately 30 years according to our social media analyst team. As the patient had multisystem organ failure and ongoing encephalopathy, Dr. Lu initiated an ethics committee consultation. The committee's decision was to make the patient a DO NOT RESUSCITATE candidate based on her severity of illness and chance of meaningful recovery. She was continued on aggressive care including ventilator management and ongoing workup for encephalopathy. The patient also had a remote history of a positive VDRL test, and for this reason, she ultimately underwent a lumbar puncture. She was started empirically on penicillin as results were pending. This was for the presumed treatment of possible neurosyphilis. Ultimately the LP results were generally unremarkable, and the CSF VDRL was negative, which essentially ruled out this diagnosis of neurosyphilis. I assumed care of the patient on 08/29/2016. After a lengthy discussion with Dr. Lu for weekend sign-out, I continued the patient's ongoing care management. The patient's blood pressure was well controlled on metoprolol, and her ventilator settings were stable. Her FIO2 remained approximately 30%, and her oxygen saturation was 100%. The patient had ongoing hemodialysis approximately every other day, and throughout the weekend, the patient was hemodynamically stable. I rounded on the patient on 08/30 and 08/31/2016. On 08/31, the patient had laboratory testing including a white blood cell count that was 28,000, which is significantly higher than her previous stable white blood cell count that was within normal limits. Of note, on 08/24/2016, the patient had a white count of 20,000, and a repeat later that day demonstrated that the white count was 7.8, which was consistent with the prior values. This led the team to believe that there was a lab error on 08/24. On 08/31, as I stated above, the white count was 28.3. Again, the patient was clinically unchanged without any significant changes in the patient's vital signs. For this reason, repeat laboratory testing was requested. I discussed the case in detail with the patient's ICU nurse (Lexi), and the patient was to undergo dialysis later that afternoon. As the patient was a difficult stick to obtain blood and her vital signs were stable, dialysis was initiated approximately 6:15 p.m, and a decision was made to obtain lab testing during hemodialysis. The patient did have a blood draw around that time, and dialysis did continue. However, it was stopped after approximately 1 hour because the patient became a little hypotensive. Intravenous fluids were given as well as albumin. The patient's blood pressure did improve. The blood pressure was low at 78/46, and approximately 6:30 pm, it was 106/52 thereafter. It continued to stabilize at 116/42, 118/67 until approximately 1:30 a.m. when the blood pressure was 91/59. Blood pressure was rechecked in half an hour intervals, and it increased to 108/ 57. Throughout this time, the patient's mental status did not change at all. The patient was checked by the nighttime ICU nurse and appeared to be stable with no signs of distress. At approximately 4:27 a.m., the patient was known to become bradycardic with a heart rate of approximately 30. Within a few minutes, the patient became asystolic. As there was an order to DO NOT RESUSCITATE, no aggressive measures were taken including intravenous medications and CPR. The patient passed very peacefully at approximately 4:27 a.m. The following morning, I discussed the case with Dr. Lu and our social media analyst , who are making the appropriate arrangements to care for the patient's body. Unfortunately, etiology for encephalopathy appears to be related to her seizures and postictal state. However, she did not improve throughout her entire hospitalization with respect to her mental status despite aggressive measures, neurology consultation and an extensive workup. TIME OF : Approximately 4:27 a.m. on 09/01/2016. Dictated By: VALERIA MCGARRY/SANDRA Conf#: [id number] DID#: [id number] MTDD
== END 2016-09-01 04:31 | disposition expired | DRG 870 ==
LOC: E/R 11:21 → ICU 13:37
PROVIDERS: ADMIT Internal Medicine; ATTEND Internal Medicine
PROC: 5A1955Z Respiratory Ventilation, Greater than 96 Consecutive Hours (ICD-10-PCS; principal; 2016-08-21)
PROC: 0BH17EZ Insertion of Endotracheal Airway into Trachea, Via Natural or Artificial Opening (ICD-10-PCS; 2016-08-21)
PROC: 3E0A3GC Introduction of Other Therapeutic Substance into Bone Marrow, Percutaneous Approach (ICD-10-PCS; 2016-08-22)
PROC: 5A1D60Z (ICD-10-PCS; 2016-08-22)
DX: A41.9 Sepsis, unspecified organism (principal); J96.01 Acute respiratory failure with hypoxia; J69.0 Pneumonitis due to inhalation of food and vomit; N18.6 End stage renal disease; E87.3 Alkalosis; I12.0 Hypertensive chronic kidney disease with stage 5 chronic kidney disease or end stage renal disease; I67.4 Hypertensive encephalopathy; N39.0 Urinary tract infection, site not specified; Z99.2 Dependence on renal dialysis; E87.6 Hypokalemia; I16.0 Hypertensive urgency; R00.1 Bradycardia, unspecified; R40.2432 Glasgow coma scale score 3-8, at arrival to emergency department; F03.90 Unspecified dementia, unspecified severity, without behavioral disturbance, psychotic disturbance, mood disturbance, and anxiety; I25.10 Atherosclerotic heart disease of native coronary artery without angina pectoris; R65.20 Severe sepsis without septic shock; Z86.73 Personal history of transient ischemic attack (TIA), and cerebral infarction without residual deficits; D63.1 Anemia in chronic kidney disease; B96.89 Other specified bacterial agents as the cause of diseases classified elsewhere; Z16.12 Extended spectrum beta lactamase (ESBL) resistance; E83.42 Hypomagnesemia; R56.9 Unspecified convulsions; I46.9 Cardiac arrest, cause unspecified
CPT/HCPCS: 31500; 36600; 70450; 70551; 71010; 74000; 76937; 80048; 80053; 80061; 80069; 80185; 81001; 81003; 82140; 82550; 82553; 82803; 82945; 83605; 83735; 84100; 84132; 84134; 84157; 84439; 84443; 84484; 85025; 85610; 85730; 86592; 87040; 87070; 87081; 87086; 89050; 89220; 90935; 93005; 94002; 94003; 94640; 94770; 95819; 96374; 96375; J0610; J0692; J0743; J0886; J1165; J1953; J2543; J3370; J3475; J3480; J7030; J7050; J7070; P9047